=== PATIENT | male | born 1950 | race American Indian/Alaskan Native ===

== ENCOUNTER 2016-05-28 05:03 | Inpatient (IN) | payer MEDICARE ==
[2016-05-28 06:45] LABS: Basophils % (Auto) 0.4 % (0.0-1.8); Hemoglobin 14.8 gm/dl (11.8-15.2); Mean Corpuscular HGB Conc 34 % (32-34); Mean Corpuscular Hemoglobin 32 pg (28-32); Mean Corpuscular Volume 96 fl (84-94); Platelet Count 190 K/mm3 (140-440); Red Blood Count 4.61 M/mm3 (3.65-5.03); Red Cell Distribution Width 12.6 % (13.2-15.2); White Blood Count 8.3 K/mm3 (4.5-11.0)
--- NOTE | 2016-05-28 07:21 | Emergency Department Report ---
ED Chest Pain HPI - General Chief Complaint: Chest Pain Stated Complaint: ARM/NECK PAIN Time Seen by Provider: 05/28/16 07:15 Source: patient Mode of arrival: Ambulatory Limitations: No Limitations - History of Present Illness Initial Comments: The patient describes the acute onset of nontraumatic right neck pain associated with paresthesias but not numbness in his second through fourth digit fingertip only. He denies any weakness. He denies any bowel or bladder problem. He also states that he was experiencing some intermittent right anterior chest pain. Was not clear if this was really associated with the neck pain with paresthesias. Patient states that the neck pain was somewhat sharp and moderate in intensity. It was not radiating. He has done no recent travel nor unusual activity or lifting. He denies any history of prior neck problems. MD Complaint: chest pain -: Gradual Onset: during rest Pain Location: right chest Pain Radiation: none Severity: mild Severity scale (0 -10): 3 Quality: aching Consistency: intermittent Improves With: nothing Worsens With: nothing re: denies: nausea, vomting, diaphoresis, dyspnea, sense of impending doom Other Symptoms: denies: cough, fever, syncope - Related Data Home Medications Medication Instructions Recorded Confirmed Last Taken Aspirin BABY CHEW TAB 81 mg PO DAILY 05/28/16 05/28/16 Unknown Allergies Allergy/AdvReac Type Severity Reaction Status Date / Time No Known Allergies Allergy Unverified 05/28/16 06:02 AP score - Ap Score Age > 65: (0) No Aspirin use within the Past 7 Days: (1) Yes 3 or more CAD Risk Factors: (1) Yes 2 or more Angina events in past 24 hrs: (0) No Known CAD with more than 50% Stenosis: (0) No Elevated Cardiac Markers: (0) No ST Deviation Greater than 0.5mm: (0) No AP Score: 2 ED Review of Systems ROS: Stated complaint: ARM/NECK PAIN Other details as noted in HPI Constitutional: denies: chills, fever Eyes: denies: eye pain, eye discharge, vision change ENT: denies: ear pain, throat pain Respiratory: denies: cough, shortness of breath, wheezing Cardiovascular: as per HPI, chest pain. denies: palpitations, dyspnea on exertion, edema, syncope Endocrine: no symptoms reported Gastrointestinal: denies: abdominal pain, nausea, diarrhea Genitourinary: denies: urgency, dysuria Musculoskeletal: as per HPI, other. denies: back pain, joint swelling, arthralgia Skin: denies: rash, lesions Neurological: as per HPI, paresthesias. denies: headache, weakness Psychiatric: denies: anxiety, depression Hematological/Lymphatic: denies: easy bleeding, easy bruising ED Past Medical Hx - Past Medical History Hx Hypertension: Yes Hx Heart Attack/AMI: Yes Additional medical history: A-fib, DVT left leg, - Surgical History Additional Surgical History: Left abdominal hernia, right knee surgery - Social History Smoking Status: Current Every Day Smoker Substance Use Type: None - Medications Home Medications: Home Medications Medication Instructions Recorded Confirmed Last Taken Type Aspirin BABY CHEW TAB 81 mg PO DAILY 05/28/16 05/28/16 Unknown History ED Physical Exam - General Limitations: No Limitations General appearance: alert, in no apparent distress - Head Head exam: Present: atraumatic, normocephalic - Eye Eye exam: Present: normal appearance, PERRL, EOMI. Absent: scleral icterus - ENT ENT exam: Present: normal exam, mucous membranes moist - Neck Neck exam: Present: normal inspection, other (carotids without bruit. Perhaps some posterior right trapezius spasm). Absent: tenderness, meningismus - Respiratory Respiratory exam: Present: normal lung sounds bilaterally. Absent: respiratory distress - Cardiovascular Cardiovascular Exam: Present: regular rate, normal rhythm. Absent: systolic murmur, diastolic murmur, rubs, gallop - GI/Abdominal GI/Abdominal exam: Present: soft, normal bowel sounds. Absent: distended, tenderness, guarding, rebound, rigid, organomegaly, mass - Rectal Rectal exam: Present: deferred - Extremities Exam Extremities exam: Present: normal inspection, full ROM, normal capillary refill. Absent: tenderness, pedal edema, joint swelling, calf tenderness - Back Exam Back exam: Present: normal inspection. Absent: CVA tenderness (R), CVA tenderness (L) - Neurological Exam Neurological exam: Present: alert, oriented X3, CN II-XII intact, reflexes normal. Absent: motor sensory deficit - Psychiatric Psychiatric exam: Present: normal affect, normal mood - Skin Skin exam: Present: warm, dry, intact, normal color. Absent: rash ED Course Vital Signs 05/28/16 05/28/16 05/28/16 05:47 07:06 07:10 Temperature 98.4 F Pulse Rate 91 H Respiratory 18 Rate Blood Pressure 157/95 131/76 Blood Pressure 157/95 [Left] O2 Sat by Pulse 100 Oximetry 05/28/16 07:15 Temperature Pulse Rate Respiratory Rate Blood Pressure 142/77 Blood Pressure [Left] O2 Sat by Pulse Oximetry - Reevaluation(s) Reevaluation #1: Patient's chest pain essentially resolved in the emergency department. His paresthesias also resolved. He continued to have some soreness of his right posterior neck but it was mild in intensity. Radiologist did recommend MR with the finding of mild cervical stenosis. This was discussed with the hospitalist. Patient does not need an emergency MRI however as discussed with the hospitalist this can be obtained during his hospitalization. 05/28/16 12:16 ED Medical Decision Making - Lab Data Result diagrams: 05/28/16 06:20 05/28/16 06:20 Laboratory Results - last 24 hr 05/28/16 06:20 WBC 8.3 RBC 4.61 Hgb 14.8 Hct 44.0 MCV 96 H MCH 32 MCHC 34 RDW 12.6 L Plt Count 190 Lymph % (Auto) 36.7 H [place] % (Auto) 11.7 H Eos % (Auto) 2.0 Baso % (Auto) 0.4 Lymph # 3.1 [place] # 1.0 H Eos # 0.2 Baso # 0.0 Seg Neutrophils % 49.2 Seg Neutrophils # 4.1 - EKG Data -: EKG Interpreted by Me EKG shows normal: sinus rhythm Rate: normal - EKG Data Interpretation: no acute changes - Radiology Data Radiology results: report reviewed interpreted by me: Multilevel cervical arthritis with mild canal stenosis and neuroforaminal findings. See report. Chest x-ray no acute process. Chest x-ray showed no acute process Critical care attestation.: If time is entered above; I have spent that time in minutes in the direct care of this critically ill patient, excluding procedure time. ED Disposition Clinical Impression: Cervical radiculopathy, Cervical disc disease, Insulin dependent diabetes mellitus Cervical spondylosis Qualifiers: Spinal osteoarthritis complication: with radiculopathy Qualified Code(s): M47.22 - Other spondylosis with radiculopathy, cervical region Chest pain Qualifiers: Chest pain type: unspecified Qualified Code(s): R07.9 - Chest pain, unspecified Disposition: OP ADMITTED IP TO THIS HOSP Is pt being admited?: Yes Does the pt Need Aspirin: Yes Condition: Stable Instructions: Chest Pain (ED), Diabetes Mellitus Type 2 in Adults (ED) Referrals: MONSERRAT VAZQUEZ MD [Primary Care Provider] - 3-5 Days Time of Disposition: 12:20
[2016-05-28 07:41] LABS: Anion Gap 18 mmol/L; Blood Urea Nitrogen 16 mg/dL (9-20); Calcium 8.6 mg/dL (8.4-10.2); Carbon Dioxide 27 mmol/L (22-30); Chloride 98.4 mmol/L (98-107); Glucose 104 mg/dL (75-100); Potassium 3.9 mmol/L (3.6-5.0); Sodium 139 mmol/L (137-145)
[2016-05-28 07:54] LABS: Partial Thromboplastin Time 27.3 Sec. (24.2-36.6)
[2016-05-28 08:07] LABS: Alanine Aminotransferase 20 units/L (7-56); Albumin 3.9 g/dL (3.9-5); Alkaline Phosphatase 97 units/L (35-129); Bilirubin,Direct < 0.2 mg/dL (0-0.2); Bilirubin,Total 0.7 mg/dL (0.1-1.2); Total Protein 7.9 g/dL (6.3-8.2)
--- NOTE | 2016-05-28 08:41 | Cat Scan Report ---
FINAL REPORT PROCEDURE: CT CERVICAL SPINE WO CON TECHNIQUE: Computerized tomography of the cervical spine was performed without contrast material. HISTORY: R neck pain and R arm paresthesia COMPARISON: None FINDINGS: Incidentally partially included on the exam is right lobe thyroid goiter with mild mass effect and displacement of the trachea to the left. Small superior mediastinal extension of goiter is noted. There is no significant tracheal luminal narrowing. There is no lymphadenopathy. There is no CT evident vertebral body or posterior element fracture. There is no subluxation. Mild multilevel degenerative disc disease and subtle facet DJD is present. Intervertebral disc heights are largely maintained. Right and left posterior lateral osteophyte formation produces mild bilateral foraminal stenosis at C3/C4 superimposed partially calcified/ossified disc protrusions at C3/C4, C4/C5, and C5/C6 levels with mild central canal stenosis is suspected. IMPRESSION: No fracture or subluxation. Degenerative mild bilateral neural foraminal stenosis suspected at C3/C4 as well as disc protrusions with mild central canal stenosis at C3/C4, C4/C5, and C5/C6 levels. Consider MRI for further evaluation. Partially imaged right lobe thyroid goiter. If not known, thyroid ultrasound would be of benefit for further evaluation..
--- NOTE | 2016-05-28 09:25 | XRay Report ---
AP CHEST: HISTORY: chest pain AP view of the chest demonstrates a normal mediastinal and cardiac contour with clear lungs and normal bony and soft tissue structures. IMPRESSION: Unremarkable AP chest.
[2016-05-28] MEDS ORDERED: PERCOCET 5/325 PO PRN (12:14)
[2016-05-28] MEDS ORDERED: AMBIEN PO PRN (12:14)
[2016-05-28] MEDS ORDERED: ZOFRAN IV PRN (12:14)
[2016-05-28] MEDS ORDERED: DULCOLAX PR PRN (12:14)
[2016-05-28] MEDS ORDERED: TYLENOL PO PRN (12:14)
[2016-05-28] MEDS ORDERED: MILK OF MAGNESIA PO PRN (12:14)
--- NOTE | 2016-05-28 12:16 | History and Physical Report ---
History of Present Illness Date of examination: 05/28/16 Date of admission: 05/28/16 Chief complaint: neck pain, right arm pain, chest pain History of present illness: Patient is 66 yo presented with neck pain radiating down right arm and chest pain, mid sternal. neck pain for weeks but much worse past few days. Neck pain asociated with numbness fingers of right hand. Chest pain is 8/10, sharp, no radiation, worse on exertion. He was concerned therefore came to Emergency department. He has diabetes but is not on meds saying he is diet - controlled. He has paroxysmal atrial fibrillation and is not on anticoagulation. Initial Troponin was normal. he was given Aspirin and will admit to rule out acute coronary syndrome. Past History Past Medical History: atrial fib, diabetes, DVT (left leg), hypertension Past Surgical History: hernia repair Social history: , smoking (No smoke), other (Wine almost daily) Family history: other (Hyperlipidemia) Medications and Allergies Allergies Allergy/AdvReac Type Severity Reaction Status Date / Time No Known Allergies Allergy Verified 05/28/16 12:18 Home Medications Medication Instructions Recorded Confirmed Last Taken Type Aspirin BABY CHEW TAB 81 mg PO DAILY 05/28/16 05/28/16 Unknown History Famotidine [Pepcid] 20 mg PO BID #60 tablet 05/29/16 Unknown Rx Ibuprofen [Motrin 400 MG tab] 400 mg PO Q8H PRN #30 tablet 05/29/16 Unknown Rx amLODIPine [Norvasc] 5 mg PO QDAY #30 tablet 05/29/16 Unknown Rx Active Meds: Active Medications Acetaminophen (Tylenol) 650 mg PO Q4H PRN PRN Reason: Pain MILD(1-3)/Fever >100.5/SOLORZANO Bisacodyl (Dulcolax) 10 mg MA QDAY PRN PRN Reason: Constipation unrelieved by MOM Heparin Sodium (Porcine) (Heparin) 5,000 unit SUB-Q Q8HR YOUNG Magnesium Hydroxide (Milk Of Magnesia) 30 ml PO Q4H PRN PRN Reason: Constipation Ondansetron HCl (Zofran) 4 mg IV Q8H PRN PRN Reason: N/V unrelieved by Reglan Review of Systems All systems: negative (No fever, no cough, no abd pain. All other systems reviewed and are negative.) Exam - Physical Exam Narrative exam: en: Not in acute distress HEENT :Normocephalic atraumatic Neck : Supple no JVD Lungs clear to auscultation bilaterally, no crackles or wheeze Heart S1 and S2 regular, no murmurs, rubs or gallop Abdomen : soft non-tender, non-distended, normal bowel sounds Extremities: no edema clubbing or cyanosis, Neuro: awake, alert,oriented x 3 - Constitutional Vitals: Temp Pulse Resp BP Pulse Ox 98.4 F 91 H 18 142/77 100 05/28/16 05:47 05/28/16 05:47 05/28/16 07:10 05/28/16 07:15 05/28/16 05:47 Results - Labs CBC & Chem 7: 05/28/16 06:20 05/28/16 06:20 Labs: Abnormal lab results 05/28/16 05/28/16 Range/Units 06:20 06:20 MCV 96 H (84-94) fl RDW 12.6 L (13.2-15.2) % Lymph % (Auto) 36.7 H (13.4-35.0) % [place] % (Auto) 11.7 H (0.0-7.3) % [place] # 1.0 H (0.0-0.8) K/mm3 Glucose 104 H (75-100) mg/dL Assessment and Plan Chest pain. Aspirin, serial Troponins. Admit to Telemetry to rule out acute coronary syndrome.. Will do stress test tomorrow. Neck pain. CT neck shows degenerative changes. Will order MRI as recommended by Radiologist Paroxysmal afib. Currently on sinus rhythm. Not on anticoagulation. Consult cardiology to evaluate. Diabetes mellitus type 2. Will obtain hemoglobin A1c level. He is not on any medications says he is diet controlled. Full code status
[2016-05-28] MEDS ORDERED: ASPIRIN PO STA (12:18)
[2016-05-28] MEDS ORDERED: SODIUM CHLORIDE FLUSH SYRINGE 10 ML IV PRN (12:26)
[2016-05-28] MEDS ORDERED: NITROSTAT SL PRN (12:26)
[2016-05-28] MEDS ORDERED: BABY ASPIRIN PO SCH (13:00)
[2016-05-28] MEDS: PEPCID PO SCH ×2 (13:02→22:00)
[2016-05-28] MEDS: HEPARIN SUB-Q SCH ×2 (14:44→22:00)
--- NOTE | 2016-05-29 01:10 | Admit Criteria Form ---
Admission Criteria Documentation: DIABETES Clinical Indications for Admission to Inpatient Care (Place 'X' for any and all applicable criteria): Admission is indicated by presence of ALL (if I & II) or ANY ONE (if III or IV) of the following (1)(2)(3)(4): [ ]I. Diabetes is uncontrolled as indicated by ANY ONE of the following: [ ]a) Diabetic ketoacidosis as indicated by ALL of the following (8): [ ]i) Hyperglycemia (eg, plasma glucose greater than 200 mg/ dL (11.1 mmol/L)) [ ]ii) Acidosis (eg, arterial pH less than 7.30, serum bicarbonate level less than 15 mEq/L (mmol/L)) [ ]iii) Moderate ketonuria or ketonemia [ ]b) Hyperglycemic hyperosmolar state as indicated by ALL of the following(9)(10): [ ]i) Neurologic dysfunction (eg, stupor, coma, hemiparesis , seizure)(13) [ ]ii) Plasma glucose greater than 600 mg/dL (33.3 mmol/L) [ ]iii) Serum osmolality greater than 320 mOsm/kg (mmol/kg) [ ]c) Severe signs or symptoms secondary to hyperglycemia indicated by ANY ONE of the following: [ ]i) Altered mental status(10) [ ]ii) Significant hypovolemia or dehydration [ ]iii) Intractable nausea or vomiting [ ]iv) Unexplained fever or severe infection [ ]v) Severe electrolyte abnormality (eg, hypokalemia, hyperkalemia, hypernatremia) [ ]II. Management at other levels of care (Also use Diabetes: Observation Care as appropriate) is not feasible because of ANY ONE of the following: [ ]a) Condition was not adequately corrected with treatment at other levels of care. [ ]b) Treatment at other levels of care is not appropriate because of condition severity (eg, hyperosmolar coma). [ ]III. Contraindications and/or Inappropriate clinical situations for Observational Care in patients with Diabetes, when ANY ONE of the following is required: [ ]a) Patient require specific diagnostic workup or therapeutic intervention 22 [ ]b) Patient with abnormal vital signs or altered mental status 23 [X ]IV. General contraindications and/or Inappropriate clinical situations for Observational Care in patients with Diabetes, when ANY ONE of the following is required: [X ]a) Prediction of prolongation of LOS based on ANY ONE of the following may be considered as a contraindication for observational care 2, 3, 4, 5, 6, 7, 8, 9, 10, 11 [ ]i) Age > 65 yrs. [ ]ii) Patient arriving by ambulance [ ]iii) Patient with high acuity [ ]iv) Patient requiring vital sign monitoring [ X]v) Patient on IV medication [ ]b) Systolic blood pressures 180mmHg 3,12 [ ]c) Patient with altered mental status including delirium and other alteration of consciousness, (3) [ ]d) Patient whose discharge disposition will be to a group home home or rehabilitation home should not be managed in Emergency Department Observation Unit. CMS rule requires 3 days hospital stay before such placement.3,13 [ ]e) Patient with failure to thrive due to broad array of etiologies 3,16,17 [ ]f) Inability to ambulate 3,14 Extended stay beyond goal length of stay may be needed for(3)(20): [ ]a) Treatment of precipitating causes [ ]b) Development of hypoglycemia [ ]c) Complications of treatment [ ]d) Complications of decompensated diabetes (eg, acute gastric dilatation, persistent metabolic or neurologic derangement) [ ]e) Active Comorbidities [ ]f) Older patients( 65 years or older) The original [employer] content created by [employer] has been revised. The portions of the content which have been revised are identified through the use of italic text or in bold,and [facility] has neither reviewed nor approved the modified material. All other unmodified content is copyright [facility] [employer]. Please see references footnoted in the original [facility] edition 2016 Admission Criteria Met: Yes
[2016-05-29] MEDS: HEPARIN SUB-Q SCH ×2 (06:25→13:42)
[2016-05-29] MEDS ORDERED: LEXISCAN IV ONE ×2 (08:01→08:09)
--- NOTE | 2016-05-29 10:51 | Discharge Summary ---
Providers - Providers Date of Admission: 05/28/16 13:48 Date of discharge: 05/29/16 Attending physician: CARLOS REGALADO Primary care physician: MONSERRAT VAZQUEZ Hospitalization Condition: Fair Disposition: DISCHARGED TO HOME OR SELFCARE - Discharge Diagnoses (1) Diabetes mellitus type 2 in obese Status: Acute (2) Cervical radiculopathy Status: Acute (3) Chest pain Status: Acute Qualifiers: Chest pain type: unspecified Qualified Code(s): R07.9 - Chest pain, unspecified Core Measure Documentation - Palliative Care Palliative Care/ Comfort Measures: Not Applicable - Core Measures Any of the following diagnoses?: none Exam - Constitutional Vitals: Temp Pulse Resp BP Pulse Ox 97.8 F 88 20 159/86 97 05/29/16 06:00 05/29/16 08:25 05/29/16 06:00 05/29/16 08:25 05/29/16 06:00 Plan Activity: advance as tolerated Diet: low fat, low cholesterol, low salt Additional Instructions: 1.Follow up with PCP in 1 week. 2.Follow up with Orthopedic Surgeon for cervical radiculopathy in 1 week. 3.Follow up with Cardiology in 1 week as scheduled. 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 He declined Coumadin. Follow up with: MONSERRAT VAZQUEZ MD [Primary Care Provider] - 3-5 Days Prescriptions: amLODIPine [Norvasc] 5 mg PO QDAY #30 tablet Famotidine [Pepcid] 20 mg PO BID #60 tablet
[2016-05-29] MEDS: PEPCID PO SCH (11:09)
[2016-05-29 11:41] VITALS: BP 140/83
[2016-05-29] MEDS ORDERED: NORVASC PO SCH (12:00)
--- NOTE | 2016-05-29 12:35 | Magnetic Resonance Report ---
FINAL REPORT EXAM: MR CERVICAL SPINE WO CON HISTORY: neck pain, abnormal CT spine TECHNIQUE: Fat sensitive and fluid sensitive MR sequences of the cervical spine were performed in sagittal and axial planes. PRIORS: None. FINDINGS: Vertebral body heights and alignment are maintained. There is no bone bruise or fracture seen. At C2-3 there is minimal disc bulge. There is no spinal or neuroforaminal stenosis. At C3-4 there is a right posterolateral small disc protrusion/herniation superimposed on a diffuse mild disc bulge. Causing mild effacement of the right lateral recess and moderate right neuroforaminal narrowing. At C4-5, there is no significant disc protrusion or spinal stenosis. At C5-6 there is a diffuse disc bulge and superimposed central central right paramedian disc protrusion/herniation.. This causes mild spinal stenosis and mild effacement of the right lateral recess. At C6-7 there is a mild diffuse broad-based disc bulge without significant spinal stenosis. At C7-T1 there is no disc protrusion or spinal stenosis seen. IMPRESSION: Mild degenerative disc disease. Most notable is small central right paramedian disc herniation at C5-6 causing mild spinal stenosis and effacement of right lateral recess. Also notable is C3-4 right posterior lateral disc herniation causing some mild right lateral recess effacement and moderate neuroforaminal narrowing.
--- NOTE | 2016-05-29 23:03 | Consultation ---
HISTORY OF PRESENT ILLNESS: The patient is a 66-year-old male with a history of hypertension, type 2 diabetes, left leg DVT and lower remote history of smoking, who presented with symptoms that involved in neck, right arm, and right chest. There is a prior history of atrial fibrillation, so Cardiology consult was requested. He states that one time, he had to be cardioverted and he has occasional episodes of palpitations, he can tell when he is in atrial fibrillation. There are no significant associated symptoms. He one time used warfarin, but decided against using it after awhile. He has had no strokes, angina, significant dizziness, claudication or edema. He has some mild shortness of breath at time when active. He is moderately active. He has limited ability due to knee pain. At one point, he was told he would benefit from a knee replacement. He has had some mild hyperlipidemia. There is remote history of smoking and there is no history of lung disease. He is eating fairly healthy. PAST MEDICAL HISTORY: See the nurses' notes. ALLERGIES: None. MEDICATIONS: See the nurse's notes. SOCIAL HISTORY: Smoking none. Alcohol, heavy use. OPERATIONS: Left abdominal hernia, right knee. FAMILY HISTORY: Noncontributory. REVIEW OF SYSTEMS: No other complaints or medical problems described. PHYSICAL EXAMINATION: GENERAL: Well-developed, well-nourished, slightly overweight, in no acute distress. Alert, oriented and cooperative. Mental status, normal. I's and O's, and throat unremarkable. NECK: Reveals no JVD or bruits. Neck is supple, no masses. LUNGS: Clear. No labored respirations. HEART: Regular rhythm, soft S4, no murmurs or rubs. ABDOMEN: Soft, nontender. No masses. EXTREMITIES: No cyanosis, clubbing, edema. Peripheral pulses intact. NEUROLOGIC: Grossly symmetrical. SKIN: Clear. EKG shows sinus rhythm, LVH, nonspecific ST-T changes. ASSESSMENT: 1. History of paroxysmal atrial fibrillation: I discussed the importance of anticoagulation to avoid strokes. 2. Atypical right chest pain: Negative stress thallium study with an normal ejection fraction. 3. History of hypertension. 4. History of deep venous thrombosis. 5. History of type 2 diabetes. 6. Cervical radiculopathy. 7. Mild hyperlipidemia. PLAN: Encouraged anticoagulation and discussed diet and exercises. Hypertension and diabetes therapy per the primary care physician. Consider statin therapy long-term for all diabetics. Office followup is optional for this patient if he would like. Thank you for this consultation. JOB# [id number] DEANA/JAUN
--- NOTE | 2016-05-30 10:10 | Treadmill Report ---
INDICATION FOR PROCEDURE: Chest pain. FINDINGS: There is no scintigraphic evidence of myocardial ischemia. The left ventricle is normal in size and systolic function. The left ventricular ejection fraction is measured at 56%. Normal wall motion and wall thickening is noted on gated imaging. CONCLUSION: Normal perfusion scan. This is a low risk myocardial perfusion study associated with less than 1% cardiovascular mortality in the next 1 year. [facility]# [id number] JEMMA/JAUN
== END 2016-05-29 16:10 | disposition home or self-care (01) | DRG 552 ==
LOC: ED 05:03 → 4A 13:48
PROVIDERS: ADMIT Internal Medicine; ATTEND Internal Medicine
DX: M47.22 Other spondylosis with radiculopathy, cervical region (principal); R07.89 Other chest pain; I10 Essential (primary) hypertension; I25.2 Old myocardial infarction; E11.9 Type 2 diabetes mellitus without complications; E78.5 Hyperlipidemia, unspecified; I48.0 Paroxysmal atrial fibrillation; E66.9 Obesity, unspecified; Z68.36 Body mass index [BMI] 36.0-36.9, adult; Z87.891 Personal history of nicotine dependence; E78.4 Other hyperlipidemia; Z79.82 Long term (current) use of aspirin; Z86.718 Personal history of other venous thrombosis and embolism
CPT/HCPCS: 36415; 71010; 72125; 72141; 78452; 80048; 80074; 83880; 84484; 85025; 85610; 85730; 93005; 93010; 93017; 93306; A9502; J1644; J2785

== ENCOUNTER 2016-10-05 13:27 | Emergency (ER) | payer OTHER, MEDICARE ==
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
[2016-10-05 21:41] VITALS: BP 172/96
== END 2016-10-05 22:03 | disposition home or self-care (01) ==
LOC: ED 13:27
DX: M79.1 Myalgia (principal); I10 Essential (primary) hypertension; I25.2 Old myocardial infarction; E11.9 Type 2 diabetes mellitus without complications; F17.210 Nicotine dependence, cigarettes, uncomplicated; Z79.82 Long term (current) use of aspirin; V49.9XXA Car occupant (driver) (passenger) injured in unspecified traffic accident, initial encounter; Y93.89 Activity, other specified; Y92.89 Other specified places as the place of occurrence of the external cause; Y99.8 Other external cause status
CPT/HCPCS: 99282

== ENCOUNTER 2019-10-12 18:21 | Emergency (ER) | payer MEDICARE ==
[2019-10-12 18:52] VITALS: BP 124/70
[2019-10-12] MEDS ORDERED: ACETAMINOPHEN 325 MG TAB PO ONE (20:25)
--- NOTE | 2019-10-12 20:29 | Event Note ---
ED Screening Note Date of service: 10/12/19 Time: 20:24 ED Screening Note: Patient presents with complaints of cough, body aches, and loss of appetite x 5 days Cough is nonproductive He states he is a heart patient, but denies any chest pain Patient also denies any known sick contacts, loss of taste/smell, nausea/vomiting/diarrhea, or abdominal pain Temp is noted to be 101.7 This initial assessment/diagnostic orders/clinical plan/treatment(s) is/are subject to change based on patients health status, clinical progression and re- assessment by fellow clinical providers in the ED. Further treatment and workup at subsequent clinical providers discretion. Patient/guardian urged not to elope from the ED as their condition may be serious if not clinically assessed and managed. Initial orders include: Chest x-ray Labs Tylenol
[2019-10-12 20:59] LABS: Basophils % (Auto) 0.5 % (0.0-1.8); Eosinophils % (Auto) 0.6 % (0.0-4.3); Hematocrit 45.5 % (35.5-45.6); Hemoglobin 15.4 gm/dl (11.8-15.2); Lymphocytes # (Auto) 2.3 K/mm3 (1.2-5.4); Lymphocytes % (Auto) 37.3 % (13.4-35.0); Mean Corpuscular HGB Conc 34 % (32-34); Mean Corpuscular Volume 97 fl (84-94); Monocytes # (Auto) 0.6 K/mm3 (0.0-0.8); Monocytes % (Auto) 9.9 % (0.0-7.3); Platelet Count 187 K/mm3 (140-440); Red Blood Count 4.71 M/mm3 (3.65-5.03); Red Cell Distribution Width 12.5 % (13.2-15.2)
[2019-10-12 21:14] LABS: Alanine Aminotransferase 18 units/L (7-56); Albumin 3.9 g/dL (3.9-5); BUN/Creatinine Ratio 8; Blood Urea Nitrogen 8 mg/dL (9-20); Calcium 8.3 mg/dL (8.4-10.2); Hemolysis Index 29
--- NOTE | 2019-10-12 21:48 | XRay Report ---
CHEST 2 VIEWS INDICATION / CLINICAL INFORMATION: Cough and fever for 5 days. COMPARISON: One view of the chest from 05/28/2016. FINDINGS: SUPPORT DEVICES: None. HEART / MEDIASTINUM: No significant abnormality. LUNGS / PLEURA: Right upper and lower lobe airspace opacities are noted. The left lung is clear. No s ignificant pleural effusion. No pneumothorax. ADDITIONAL FINDINGS: No significant additional findings. IMPRESSION: Suspected right pneumonia. Continued radiographic follow-up to resolution is recommended. Signer Name: Sven Burden MD Signed: 10/12/2019 9:44 PM Workstation Name: [id number]
--- NOTE | 2019-10-12 23:16 | Emergency Department Report ---
- General Chief Complaint: Upper Respiratory Infection Stated Complaint: FEVER PUI?: Yes Time Seen by Provider: 10/12/19 20:17 Source: patient Mode of arrival: Ambulatory Limitations: No Limitations - History of Present Illness Initial Comments: 69-year-old -Indian male presents to the emergency room for cough and fever x5 days. Patient states that he has been taking Vicks DayQuil and ibuprofen but recently ran out of ibuprofen. Patient also admits to a headache. Patient does have a past medical history of diabetes currently on no meds for that. History of hypertension, A. fib DVT in left leg. Patient reports he is able to drink with a decrease in appetite. Patient reports that he is on Eliquis. Patient does have a primary care provider Dr. Valery Newman. Patient denies any Kovic positive contact. MD Complaint: fever, cough Onset/Timin -: days(s) - Related Data Home Medications Medication Instructions Recorded Confirmed Last Taken Aspirin BABY CHEW TAB 81 mg PO DAILY 05/28/16 05/28/16 Unknown Previous Rx's Medication Instructions Recorded Last Taken Type Famotidine [Pepcid] 20 mg PO BID #60 tablet 05/29/16 Unknown Rx amLODIPine 5 mg PO QDAY #30 tablet 05/29/16 Unknown Rx Cyclobenzaprine HCl [Flexeril 5 MG 5 mg PO QHS #20 tab 10/05/16 Unknown Rx TAB] Ibuprofen [Motrin 400 MG tab] 400 mg PO Q8H PRN #30 tablet 10/05/16 Unknown Rx Azithromycin [Zithromax TAB] 250 mg PO QDAY #6 tablet 10/12/19 Unknown Rx Dextromethorphan Polistirex 30 mg PO BID PRN #150 kayla.er.12h 10/12/19 Unknown Rx [12-Hour Cough Relief] Allergies Allergy/AdvReac Type Severity Reaction Status Date / Time No Known Allergies Allergy Verified 05/28/16 12:18 ED Review of Systems ROS: Stated complaint: FEVER Other details as noted in HPI ED Past Medical Hx - Past Medical History Previous Medical History?: Yes Hx Hypertension: Yes Hx Heart Attack/AMI: Yes Hx Diabetes: Yes Additional medical history: A-fib, DVT left leg, - Surgical History Past Surgical History?: Yes Additional Surgical History: Left abdominal hernia, right knee surgery - Social History Smoking Status: Former Smoker Substance Use Type: Alcohol - Medications Home Medications: Home Medications Medication Instructions Recorded Confirmed Last Taken Type Aspirin BABY CHEW TAB 81 mg PO DAILY 05/28/16 05/28/16 Unknown History Famotidine [Pepcid] 20 mg PO BID #60 tablet 05/29/16 Unknown Rx amLODIPine 5 mg PO QDAY #30 tablet 05/29/16 Unknown Rx Cyclobenzaprine HCl [Flexeril 5 MG 5 mg PO QHS #20 tab 10/05/16 Unknown Rx TAB] Ibuprofen [Motrin 400 MG tab] 400 mg PO Q8H PRN #30 tablet 10/05/16 Unknown Rx Azithromycin [Zithromax TAB] 250 mg PO QDAY #6 tablet 10/12/19 Unknown Rx Dextromethorphan Polistirex 30 mg PO BID PRN #150 kayla.er.12h 10/12/19 Unknown Rx [12-Hour Cough Relief] ED Physical Exam - General Limitations: No Limitations General appearance: alert, in no apparent distress - Head Head exam: Present: atraumatic, normocephalic - Eye Eye exam: Present: normal appearance - ENT ENT exam: Present: mucous membranes moist - Neck Neck exam: Present: full ROM - Respiratory Respiratory exam: Present: normal lung sounds bilaterally, other (Actively coughing) - Cardiovascular Cardiovascular Exam: Present: regular rate, normal rhythm. Absent: systolic murmur, diastolic murmur, rubs, gallop - GI/Abdominal GI/Abdominal exam: Present: soft, normal bowel sounds - Extremities Exam Extremities exam: Present: normal inspection, full ROM - Back Exam Back exam: Present: full ROM - Neurological Exam Neurological exam: Present: alert, oriented X3, normal gait - Psychiatric Psychiatric exam: Present: normal affect, normal mood - Skin Skin exam: Present: warm, dry, intact, normal color. Absent: rash ED Course Vital Signs 10/12/19 10/12/19 18:51 20:25 Temperature 98.5 F 101.7 F H Pulse Rate 91 H 91 H Respiratory 18 19 Rate Blood Pressure 124/70 [Right] O2 Sat by Pulse 98 Oximetry ED Medical Decision Making - Lab Data Result diagrams: 10/12/19 20:40 10/12/19 20:40 - Radiology Data Radiology results: report reviewed Patient Name: JOYCE GUEVARA Gender: Male Date of : 1950 Referring Provider: LUIS ANTONIO MORGAN Organization: [facility] Accession Number: [id number] Requested Date: October 12, 2019 20:19 Report Status: Final Requested Procedure: 1 Procedure Description: XR chest routine 2V Modality: XR Findings Reporting MD: Sven Burden Dictation Time: October 12, 2019 20:44 Computer Programmer Chief: Not available Lever Miller Date: CHEST 2 VIEWS INDICATION / CLINICAL INFORMATION: Cough and fever for 5 days. COMPARISON: One view of the chest from 05/28/2016. FINDINGS: SUPPORT DEVICES: None. HEART / MEDIASTINUM: No significant abnormality. LUNGS / PLEURA: Right upper and lower lobe airspace opacities are noted. The left lung is clear. No significant pleural effusion. No pneumothorax. ADDITIONAL FINDINGS: No significant additional findings. IMPRESSION: Suspected right pneumonia. Continued radiographic follow-up to resolution is recommended. Signer Name: Sven Burden MD Signed: 10/12/2019 8:44 PM Workstation Name: [id number] - Medical Decision Making 69-year-old -Indian male presents to the emergency room for cough and fever x5 days. Patient states that he has been taking Vicks DayQuil and ibuprofen but recently ran out of ibuprofen. Patient also admits to a headache. Patient does have a past medical history of diabetes currently on no meds for that. History of hypertension, A. fib DVT in left leg. Patient reports he is able to drink with a decrease in appetite. Patient reports that he is on Eliquis. Patient does have a primary care provider Dr. Valery Newman. Patient denies any Kovic positive contact. Chest x-ray shows right upper lobe pneumonia. Patient be given Robitussin-AC while here and discharged home on a Z-Livan and Robitussin. Patient is instructed to do self quarantine for the next 14 days he is also instructed to follow-up with his primary care provider this week as well as get COVID test handout given for [facility]. Patient is encouraged to increase his fluid intake advance his diet as tolerated. His CBC was within normal limits no elevation of WBCs. His chemistry was normal. Critical care attestation.: If time is entered above; I have spent that time in minutes in the direct care of this critically ill patient, excluding procedure time. ED Disposition Clinical Impression: Pneumonia Disposition: DC-01 TO HOME OR SELFCARE Is pt being admited?: No Does the pt Need Aspirin: No Condition: Stable Instructions: Bacterial Pneumonia (ED), Community-acquired Pneumonia (ED) Additional Instructions: Complete antibiotics as prescribed. Take cough medication as needed. It is very important for you to be on quarantine for the next 14 days. I strongly suggested she get COVID testing I have given you a handout to get tested free in [place]. It is also very important for you to follow-up with your primary care provider this week. Continue with Tylenol or ibuprofen as needed for fever. Very important for you to increase your fluid intake advance your diet as tolerated. Prescriptions: Dextromethorphan Polistirex [12-Hour Cough Relief] 30 mg PO BID PRN #150 kayla.er.12h PRN Reason: Cough Azithromycin [Zithromax TAB] 250 mg PO QDAY #6 tablet Referrals: PRIMARY CARE, [Primary Care Provider] - 3-5 Days Valery Thurman [Other] - 3-5 Days
[2019-10-12] MEDS ORDERED: guaiFENesin/CODEINE 100-10MG ORAL LIQD 5 ML PO ONE (23:57)
== END 2019-10-13 00:23 | disposition home or self-care (01) ==
LOC: ED 18:21
DX: J18.8 Other pneumonia, unspecified organism (principal); I10 Essential (primary) hypertension; E11.9 Type 2 diabetes mellitus without complications; I25.2 Old myocardial infarction; Z87.891 Personal history of nicotine dependence; Z79.899 Other long term (current) drug therapy; Z98.890 Other specified postprocedural states
CPT/HCPCS: 36415; 71046; 80053; 85025; 99283

== ENCOUNTER 2020-01-14 21:24 | Emergency (ER) | payer MEDICARE ==
[2020-01-14 22:58] VITALS: BP 128/76
[2020-01-14 23:43] LABS: Basophils % (Auto) 0.6 % (0.0-1.8); Eosinophils # (Auto) 0.1 K/mm3 (0.0-0.4); Eosinophils % (Auto) 1.5 % (0.0-4.3); Hematocrit 38.2 % (35.5-45.6); Hemoglobin 13.4 gm/dl (11.8-15.2); Lymphocytes # (Auto) 2.3 K/mm3 (1.2-5.4); Lymphocytes % (Auto) 32.7 % (13.4-35.0); Mean Corpuscular HGB Conc 35 % (32-34); Mean Corpuscular Volume 97 fl (84-94); Monocytes # (Auto) 0.7 K/mm3 (0.0-0.8); Monocytes % (Auto) 9.8 % (0.0-7.3); Platelet Count 222 K/mm3 (140-440); Red Blood Count 3.94 M/mm3 (3.65-5.03)
[2020-01-14 23:55] LABS: BUN/Creatinine Ratio 17; Blood Urea Nitrogen 17 mg/dL (9-20); Calcium 8.5 mg/dL (8.4-10.2); Hemolysis Index 14
[2020-01-15] MEDS ORDERED: ONDANSETRON 4 MG ODT TAB PO ONE (05:19)
[2020-01-15 06:03] LABS: INR 1.09 (0.87-1.13)
--- NOTE | 2020-01-15 06:03 | XRay Report ---
CHEST 1 VIEW INDICATION / CLINICAL INFORMATION: GI Bleeding. COMPARISON: 10/12/2019 FINDINGS: SUPPORT DEVICES: None. HEART / MEDIASTINUM: No significant abnormality. LUNGS / PLEURA: No significant pulmonary or pleural abnormality.. No pneumothorax. ADDITIONAL FINDINGS: No significant additional findings. IMPRESSION: 1. No acute findings. Signer Name: Wing Noland MD Signed: 01/15/2020 5:58 AM Workstation Name: [id number]
[2020-01-15 06:04] LABS: Partial Thromboplastin Time 27.9 Sec. (24.2-36.6)
--- NOTE | 2020-01-15 07:05 | Cat Scan Report ---
CT angio abdomen pelvis INDICATION: Patient complains of bleeding from his rectum. poss G.I. Bleed. TECHNIQUE: All CT scans at this location are performed using the following dose modulation technique: Automated exposure control. Helical slices were obtained through the abdomen and pelvis following the administr ation 100 cc of Omnipaque 350. Imaging is performed during the arterial phase. Coronal, sagittal, and axial medic reformatted images were obtained. Precontrast images are obtained through the abdomen an d pelvis. COMPARISON: None available. FINDINGS: Aorta: The abdominal aorta is normal in diameter. There is minimal atherosclerotic calcification. The superior mesenteric artery, celiac artery, renal arteries, inferior mesenteric artery and iliac yumiko memo are all widely patent without stenosis. There is high attenuation within a diverticulum in the s igmoid colon. This is present on precontrast images as well as postcontrast images and does not signi ficantly changed following contrast. There is a similar diverticulum in the hepatic flexure. This sean earance is consistent with some high density material possibly food or pill fragments within the dive rticula in relevant blood. No extravasation of contrast is seen. ABDOMEN: The liver, spleen, pancreas, adrenal glands, and kidneys show no acute abnormality. There is a 1.5 cm exophytic hypodensity arising from the medial aspect of the left kidney. This measures 15 H ounsfield units on precontrast images and 25 Hounsfield units on postcontrast images. There is symmetric excretion of contrast. No filling defects are seen within either renal collecting system. There is no adenopathy. Pelvis: There is no obstruction or inflammation. There are no abnormal fluid collections. On review of bone windows, no acute osseous abnormalities are seen. IMPRESSION: 1. No bleeding site is identified. No significant atherosclerotic disease is seen. There is a 1.5 cm hypodensity arising from the medial left kidney . It shows approximately 10 Hounsfi eld units enhancement following contrast. Renal ultrasound is recommended to further evaluate to dete rmine if this is a solid or cystic lesion. Signer Name: Wing Noland MD Signed: 01/15/2020 7:01 AM Workstation Name: [id number]
--- NOTE | 2020-01-15 07:29 | Emergency Department Report ---
ED Chest Pain HPI - General Chief Complaint: GI Bleed Stated Complaint: BLOOD IN STOOL Time Seen by Provider: 01/15/20 07:28 Source: patient Mode of arrival: Ambulatory Limitations: No Limitations - Related Data Home Medications Medication Instructions Recorded Confirmed Last Taken Aspirin BABY CHEW TAB 81 mg PO DAILY 05/28/16 05/28/16 Unknown Previous Rx's Medication Instructions Recorded Last Taken Type Famotidine [Pepcid] 20 mg PO BID #60 tablet 05/29/16 Unknown Rx amLODIPine 5 mg PO QDAY #30 tablet 05/29/16 Unknown Rx Cyclobenzaprine HCl [Flexeril 5 MG 5 mg PO QHS #20 tab 10/05/16 Unknown Rx TAB] Ibuprofen [Motrin 400 MG tab] 400 mg PO Q8H PRN #30 tablet 10/05/16 Unknown Rx Azithromycin [Zithromax TAB] 250 mg PO QDAY #6 tablet 10/12/19 Unknown Rx Dextromethorphan Polistirex 30 mg PO BID PRN #150 kayla.er.12h 10/12/19 Unknown Rx [12-Hour Cough Relief] Allergies Allergy/AdvReac Type Severity Reaction Status Date / Time No Known Allergies Allergy Verified 05/28/16 12:18 ED Review of Systems ROS: Stated complaint: BLOOD IN STOOL Other details as noted in HPI ED Past Medical Hx - Past Medical History Hx Hypertension: Yes Hx Heart Attack/AMI: Yes Hx Diabetes: Yes Additional medical history: A-fib, DVT left leg, - Surgical History Additional Surgical History: Left abdominal hernia, right knee surgery - Social History Smoking Status: Never Smoker Substance Use Type: Alcohol - Medications Home Medications: Home Medications Medication Instructions Recorded Confirmed Last Taken Type Aspirin BABY CHEW TAB 81 mg PO DAILY 05/28/16 05/28/16 Unknown History Famotidine [Pepcid] 20 mg PO BID #60 tablet 05/29/16 Unknown Rx amLODIPine 5 mg PO QDAY #30 tablet 05/29/16 Unknown Rx Cyclobenzaprine HCl [Flexeril 5 MG 5 mg PO QHS #20 tab 10/05/16 Unknown Rx TAB] Ibuprofen [Motrin 400 MG tab] 400 mg PO Q8H PRN #30 tablet 10/05/16 Unknown Rx Azithromycin [Zithromax TAB] 250 mg PO QDAY #6 tablet 10/12/19 Unknown Rx Dextromethorphan Polistirex 30 mg PO BID PRN #150 kayla.er.12h 10/12/19 Unknown Rx [12-Hour Cough Relief] ED Physical Exam - General Limitations: No Limitations ED Course Vital Signs 01/14/20 22:56 Temperature 97.6 F Pulse Rate 89 Respiratory 18 Rate Blood Pressure 128/76 O2 Sat by Pulse 96 Oximetry NIALL score - Niall Score Age > 65: (0) No Aspirin use within the Past 7 Days: (1) Yes 3 or more CAD Risk Factors: (1) Yes 2 or more Angina events in past 24 hrs: (0) No Known CAD with more than 50% Stenosis: (0) No Elevated Cardiac Markers: (0) No ST Deviation Greater than 0.5mm: (0) No NIALL Score: 2 ED Medical Decision Making - Lab Data Result diagrams: 01/14/20 23:15 01/14/20 23:15 Laboratory Results - last 24 hr 01/14/20 01/14/20 01/15/20 23:15 23:15 05:32 WBC 7.0 RBC 3.94 Hgb 13.4 Hct 38.2 MCV 97 H MCH 34 H MCHC 35 H RDW 13.0 L Plt Count 222 Lymph % (Auto) 32.7 [place] % (Auto) 9.8 H Eos % (Auto) 1.5 Baso % (Auto) 0.6 Lymph # (Auto) 2.3 [place]bot # (Auto) 0.7 Eos # (Auto) 0.1 Baso # (Auto) 0.0 Seg Neutrophils % 55.4 Seg Neutrophils # 3.9 PT 14.3 INR 1.09 APTT 27.9 Sodium 143 Potassium 4.1 Chloride 105.9 Carbon Dioxide 26 Anion Gap 15 BUN 17 Creatinine 1.0 Estimated GFR > 60 BUN/Creatinine Ratio 17 Glucose 104 H Calcium 8.5 Critical care attestation.: If time is entered above; I have spent that time in minutes in the direct care of this critically ill patient, excluding procedure time. ED Disposition Condition: Stable Referrals: PRIMARY CARE, [Primary Care Provider] - 3-5 Days Forms: Accompanied Note
--- NOTE | 2020-01-15 07:33 | Emergency Department Report ---
ED General Adult HPI - General Chief complaint: GI Bleed Stated complaint: BLOOD IN STOOL Time Seen by Provider: 01/15/20 07:28 Source: patient Mode of arrival: Ambulatory Limitations: No Limitations - History of Present Illness Initial comments: This is a 69-year-old gentleman who had 2 episodes of hematochezia 2 days ago and another yesterday. He has not had any recurrence for more than 24 hours. He states that this started with discomfort in his right upper quadrant of his abdomen. He had no fever or chills. He was not vomiting. He describes the stool as being dark red. He states he had a colonoscopy but 10 years ago. He no longer complains of abdominal pain nor nausea. He is essentially asymptomatic at this time. This appeared to warrant CT evaluation. When I told the patient that was indicated he did not make mention that he already had a prior CT. This was discovered and the CT was canceled. FINDINGS: Aorta: The abdominal aorta is normal in diameter. There is minimal atherosclerotic calcification. The superior mesenteric artery, celiac artery, renal arteries, inferior mesenteric artery and iliac arteries are all widely patent without stenosis. There is high attenuation within a diverticulum in the sigmoid colon. This is present on precontrast images as well as postcontrast images and does not significantly changed following contrast. There is a similar diverticulum in the hepatic flexure. This appearance is consistent with some high density material possibly food or pill fragments within the diverticula in relevant blood. No extravasation of contrast is seen. ABDOMEN: The liver, spleen, pancreas, adrenal glands, and kidneys show no acute abnormality. There is a 1.5 cm exophytic hypodensity arising from the medial aspect of the left kidney. This measures 15 Hounsfield units on precontrast images and 25 Hounsfield units on postcontrast images. There is symmetric excretion of contrast. No filling defects are seen within either renal collecting system. There is no adenopathy. Pelvis: There is no obstruction or inflammation. There are no abnormal fluid collections. On review of bone windows, no acute osseous abnormalities are seen. IMPRESSION: 1. No bleeding site is identified. No significant atherosclerotic disease is seen. There is a 1.5 cm hypodensity arising from the medial left kidney . It shows approximately 10 Hounsfield units enhancement following contrast. Renal ultrasound is recommended to further evaluate to determine if this is a solid or cystic lesion. Signer Name: Wing Noland MD Signed: 01/15/2020 7:01 AM Workstation Name: [id number] -: Gradual, days(s) Quality: aching (Fairly brief aching in the right upper quadrant of the abdomen which did not radiate) Consistency: now resolved Improves with: none Worsens with: none Associated Symptoms: denies other symptoms, other (Hematochezia) Treatments Prior to Arrival: none - Related Data Home Medications Medication Instructions Recorded Confirmed Last Taken Aspirin BABY CHEW TAB 81 mg PO DAILY 05/28/16 05/28/16 Unknown Previous Rx's Medication Instructions Recorded Last Taken Type Famotidine [Pepcid] 20 mg PO BID #60 tablet 05/29/16 Unknown Rx amLODIPine 5 mg PO QDAY #30 tablet 05/29/16 Unknown Rx Cyclobenzaprine HCl [Flexeril 5 MG 5 mg PO QHS #20 tab 10/05/16 Unknown Rx TAB] Ibuprofen [Motrin 400 MG tab] 400 mg PO Q8H PRN #30 tablet 10/05/16 Unknown Rx Azithromycin [Zithromax TAB] 250 mg PO QDAY #6 tablet 10/12/19 Unknown Rx Dextromethorphan Polistirex 30 mg PO BID PRN #150 kayla.er.12h 10/12/19 Unknown Rx [12-Hour Cough Relief] Allergies Allergy/AdvReac Type Severity Reaction Status Date / Time No Known Allergies Allergy Verified 05/28/16 12:18 ED Review of Systems ROS: Stated complaint: BLOOD IN STOOL Other details as noted in HPI Constitutional: denies: chills, fever Eyes: denies: eye pain, eye discharge, vision change ENT: denies: ear pain, throat pain Respiratory: denies: cough, shortness of breath, wheezing Cardiovascular: denies: chest pain, palpitations Endocrine: no symptoms reported Gastrointestinal: as per HPI, hematochezia. denies: abdominal pain, nausea, vomiting, diarrhea, hematemesis Genitourinary: denies: urgency, dysuria Musculoskeletal: denies: back pain, joint swelling, arthralgia Skin: denies: rash, lesions Neurological: denies: headache, weakness, paresthesias Psychiatric: denies: anxiety, depression Hematological/Lymphatic: denies: easy bleeding, easy bruising ED Past Medical Hx - Past Medical History Hx Hypertension: Yes Hx Heart Attack/AMI: Yes Hx Diabetes: Yes Additional medical history: A-fib, DVT left leg,. Not on anticoagulation - Surgical History Additional Surgical History: Left abdominal hernia, right knee surgery - Social History Smoking Status: Never Smoker Substance Use Type: Alcohol - Medications Home Medications: Home Medications Medication Instructions Recorded Confirmed Last Taken Type Aspirin BABY CHEW TAB 81 mg PO DAILY 05/28/16 05/28/16 Unknown History Famotidine [Pepcid] 20 mg PO BID #60 tablet 05/29/16 Unknown Rx amLODIPine 5 mg PO QDAY #30 tablet 05/29/16 Unknown Rx Cyclobenzaprine HCl [Flexeril 5 MG 5 mg PO QHS #20 tab 10/05/16 Unknown Rx TAB] Ibuprofen [Motrin 400 MG tab] 400 mg PO Q8H PRN #30 tablet 10/05/16 Unknown Rx Azithromycin [Zithromax TAB] 250 mg PO QDAY #6 tablet 10/12/19 Unknown Rx Dextromethorphan Polistirex 30 mg PO BID PRN #150 kayla.er.12h 10/12/19 Unknown Rx [12-Hour Cough Relief] ED Physical Exam - General Limitations: No Limitations General appearance: alert, in no apparent distress - Head Head exam: Present: atraumatic, normocephalic - Eye Eye exam: Present: normal appearance. Absent: scleral icterus - ENT ENT exam: Present: mucous membranes moist - Neck Neck exam: Present: normal inspection - Respiratory Respiratory exam: Present: normal lung sounds bilaterally. Absent: respiratory distress - Cardiovascular Cardiovascular Exam: Present: regular rate, normal rhythm. Absent: systolic murmur, diastolic murmur, rubs, gallop - GI/Abdominal GI/Abdominal exam: Present: soft, normal bowel sounds. Absent: distended, tenderness, guarding, rebound, rigid - Rectal Rectal exam: Present: deferred - Extremities Exam Extremities exam: Present: normal inspection. Absent: pedal edema, joint swelling, calf tenderness - Back Exam Back exam: Present: normal inspection - Neurological Exam Neurological exam: Present: alert, oriented X3, CN II-XII intact. Absent: motor sensory deficit - Psychiatric Psychiatric exam: Present: normal affect, normal mood - Skin Skin exam: Present: warm, dry, intact, normal color. Absent: rash ED Course Vital Signs 01/14/20 22:56 Temperature 97.6 F Pulse Rate 89 Respiratory 18 Rate Blood Pressure 128/76 O2 Sat by Pulse 96 Oximetry - Reevaluation(s) Reevaluation #1: Patient has remained stable in the emergency department. His hemoglobin was fine. His CTA showed no acute process. He has been advised to follow-up with GI. I believe colonoscopy will need to be repeated. He is given appropriate return criteria. 01/15/20 09:28 ED Medical Decision Making - Lab Data Result diagrams: 01/14/20 23:15 01/14/20 23:15 Laboratory Results - last 24 hr 01/14/20 01/14/20 01/15/20 23:15 23:15 05:32 WBC 7.0 RBC 3.94 Hgb 13.4 Hct 38.2 MCV 97 H MCH 34 H MCHC 35 H RDW 13.0 L Plt Count 222 Lymph % (Auto) 32.7 Hockley % (Auto) 9.8 H Eos % (Auto) 1.5 Baso % (Auto) 0.6 Lymph # (Auto) 2.3 Hockley # (Auto) 0.7 Eos # (Auto) 0.1 Baso # (Auto) 0.0 Seg Neutrophils % 55.4 Seg Neutrophils # 3.9 PT 14.3 INR 1.09 APTT 27.9 Sodium 143 Potassium 4.1 Chloride 105.9 Carbon Dioxide 26 Anion Gap 15 BUN 17 Creatinine 1.0 Estimated GFR > 60 BUN/Creatinine Ratio 17 Glucose 104 H Calcium 8.5 - EKG Data -: EKG Interpreted by Ma EKG shows normal: sinus rhythm, axis, intervals, QRS complexes, ST-T waves Rate: normal - EKG Data Interpretation: other - Radiology Data Radiology results: report reviewed, image reviewed FINDINGS: Aorta: The abdominal aorta is normal in diameter. There is minimal atheroscler otic calcification. The superior mesenteric artery, celiac artery, renal arteries, inferior mesent gabriele artery and iliac arteries are all widely patent without stenosis. There is high attenuation w ithin a diverticulum in the sigmoid colon. This is present on precontrast images as well as postco ntrast images and does not significantly changed following contrast. There is a similar diverticulum in the hepatic flexure. This appearance is consistent with some high density material possibly food or pill fragments within the diverticula in relevant blood. No extravasation of contrast is seen. ABDOMEN: The liver, spleen, pancreas, adrenal glands, and kidneys show no acute abnormality. There is a 1.5 cm exophytic hypodensity arising from the medial aspect of the left kidney. This measures 15 Hounsfield units on precontrast images and 25 Hounsfield units on postcontrast images. There is symmetric excretion of contrast. No filling defects are seen within either renal collecting system. There is no adenopathy. Pelvis: There is no obstruction or inflammation. There are no abnormal fluid collections. On review of bone windows, no acute osseous abnormalities are seen. IMPRESSION: 1. No bleeding site is identified. No significant atherosclerotic disease is seen. There is a 1.5 cm hypodensity arising from the medial left kidney . It shows approximately 10 Hounsfield units enhancement following contrast. Renal ultrasound is recommended to further evaluate to determine if this is a solid or cystic lesion. Signer Name: Wing Noland MD Signed: 01/15/2020 7:01 AM Workstation Name: [id number] Critical care attestation.: If time is entered above; I have spent that time in minutes in the direct care of this critically ill patient, excluding procedure time. ED Disposition Clinical Impression: Lower GI bleeding Disposition: DC-01 TO HOME OR SELFCARE Is pt being admited?: No Does the pt Need Aspirin: No Condition: Stable Instructions: Chest Pain (ED), Diabetes Mellitus Type 2 in Adults (ED), Hypertension (ED), Rectal Bleeding (ED) Additional Instructions: Return any recurrent bleeding as needed. Return fever chills weakness significant abdominal pain. Otherwise follow-up with your GI doctor KOFI. Referrals: PRIMARY CAREMD [Primary Care Provider] - 3-5 Days [facility] [Provider Group] - 2-3 Days Forms: Accompanied Note Time of Disposition: 09:30
== END 2020-01-15 09:36 | disposition home or self-care (01) ==
LOC: ED 21:24
DX: K92.1 Melena (principal); K92.2 Gastrointestinal hemorrhage, unspecified; I10 Essential (primary) hypertension; E11.9 Type 2 diabetes mellitus without complications; I25.2 Old myocardial infarction; Z98.890 Other specified postprocedural states; Z79.899 Other long term (current) drug therapy
CPT/HCPCS: 36415; 71045; 74174; 80048; 85025; 85610; 85730; 93005; 99284; Q9967; Q0162

== ENCOUNTER 2021-07-22 10:38 | Inpatient (IN) | payer MEDICARE, OTHER ==
[2021-07-22] MEDS ORDERED: SODIUM CHLORIDE 0.9% 1000 ML 1,000 ML IV ONE (12:01)
--- NOTE | 2021-07-22 13:05 | XRay Report ---
CHEST 2 VIEWS INDICATION: Dyspnea. COMPARISON: 01/15/2020 FINDINGS: Support devices: None. Heart: Within normal limits. Lungs/pleura: No acute air space or interstitial disease. No pleural abnormality or pneumothorax. Additional findings: None. IMPRESSION: No acute findings. Signer Name: Ian Lizarraga Jr, MD Signed: 07/22/2021 1:00 PM Workstation Name: [id number]
[2021-07-22 13:39] LABS: Alanine Aminotransferase 16 units/L (7-56); Albumin 4.4 g/dL (3.9-5); BUN/Creatinine Ratio 13; Blood Urea Nitrogen 14 mg/dL (9-20); Hemolysis Index 4
[2021-07-22 15:33] LABS: Chol/HDL Ratio 5.85 %
--- NOTE | 2021-07-22 16:24 | Cat Scan Report ---
CT HEAD WITHOUT CONTRAST INDICATION / CLINICAL INFORMATION: headache, near syncope dizziness. TECHNIQUE: All CT scans at this location are performed using CT dose reduction for ALARA by means of automated exposure control. COMPARISON: None available. FINDINGS: HEMORRHAGE: None. EXTRA-AXIAL SPACES: Normal in size and morphology for the patient's age. VENTRICULAR SYSTEM: Normal in size and morphology for the patient's age. CEREBRAL PARENCHYMA: Moderate white matter hypodensities likely representing microangiopathy. No acut e territorial infarct. MIDLINE SHIFT / HERNIATION: None. CEREBELLUM / BRAINSTEM: No significant abnormality. ORBITS: Normal as visualized. SOFT TISSUES: No significant abnormality. SKULL: No significant abnormality. PARANASAL SINUSES / MASTOID AIR CELLS: Normal as visualized. ADDITIONAL FINDINGS: None. IMPRESSION: 1. No acute intracranial abnormality. Signer Name: Shelby Cunha MD Signed: 07/22/2021 4:20 PM Workstation Name: [id number]
[2021-07-22] MEDS ORDERED: ASPIRIN 81 MG TAB CHEW PO ONE (16:31)
[2021-07-22] MEDS ORDERED: HYDROmorphone 1 MG/1 ML INJ IV PRN (16:44)
[2021-07-22] MEDS ORDERED: MORPHINE 2 MG/1 ML INJ IV PRN (16:44)
[2021-07-22] MEDS ORDERED: ALBUTEROL 2.5 MG/3 ML NEBU IH PRN (16:44)
[2021-07-22] MEDS ORDERED: ONDANSETRON 4 MG/2 ML INJ IV PRN (16:44)
[2021-07-22] MEDS ORDERED: NITROGLYCERIN 0.4 MG TAB SUBL SL PRN (16:45)
--- NOTE | 2021-07-22 16:47 | History and Physical Report ---
History of Present Illness Chief complaint: I feel weak and I may have passed out History of present illness: 71 YO Male with Obesity, DM, HTN, Metabolic Syndrome, Paroxysmal Atrial Fib, History of LLE DVT not currently taking therapeutic anticoagulation presents to ED for evaluation. Patient reports "I feel weak, and I think I passed out". Patient states that he has experienced generalized weakness over the past 1 week with persistent symptoms over the same timeframe. Patient acknowledges decreased exercise tolerance, dyspnea on exertion, dyspnea at rest, orthopnea, paroxysmal nocturnal dyspnea, and shortness of breath. Patient reports subjective weight gain over the past 1 week. Patient acknowledges a sudden onset of worsening weakness with subsequent dizziness and subsequent loss of consciousness. Patient transported to [facility] via private vehicle for further care and evaluation of the aforementioned symptoms. The patient was seen and evaluated in the emergency department. All lab and imaging studies reviewed. Patient found to have NSTEMI, as well as clinical symptoms consistent with diastolic congestive heart failure. Patient admitted to telemetry and initiated on ACS protocol as well as CHF protocol. Cardiology team consulted in ED. Patient denies fever, chills, chest pain, palpitations, productive cough, skin rash, recent contact, known exposure to COVID-19. Prior admission on 05/28/2016 reviewed. All medication listed at time of admission has been reconciled. Advanced care planning conducted in ED. Past History Past Medical History: atrial fib, diabetes, hypertension, other (See HPI) Past Surgical History: hernia repair Social history: , lives with family. denies: smoking, alcohol abuse, prescription drug abuse Family history: diabetes, hypertension Medications and Allergies Allergies Allergy/AdvReac Type Severity Reaction Status Date / Time No Known Allergies Allergy Verified 07/22/21 14:11 Home Medications Medication Instructions Recorded Confirmed Last Taken Type Aspirin BABY CHEW TAB 81 mg PO DAILY 05/28/16 05/28/16 Unknown History Famotidine [Pepcid] 20 mg PO BID #60 tablet 05/29/16 Unknown Rx amLODIPine 5 mg PO QDAY #30 tablet 05/29/16 Unknown Rx Cyclobenzaprine HCl [Flexeril 5 MG 5 mg PO QHS #20 tab 10/05/16 Unknown Rx TAB] Ibuprofen [Motrin 400 MG tab] 400 mg PO Q8H PRN #30 tablet 10/05/16 Unknown Rx Azithromycin [Zithromax TAB] 250 mg PO QDAY #6 tablet 10/12/19 Unknown Rx Dextromethorphan Polistirex 30 mg PO BID PRN #150 kayla.er.12h 10/12/19 Unknown Rx [12-Hour Cough Relief] Active Meds: Active Medications Acetaminophen (Acetaminophen 325 Mg Tab) 650 mg PO Q4H PRN PRN Reason: Pain MILD(1-3)/Fever >100.5/SOLORZANO Albuterol (Albuterol 2.5 Mg/3 Ml Nebu) 2.5 mg IH Q4HRT PRN PRN Reason: Shortness Of Breath Hydromorphone HCl (Hydromorphone 1 Mg/1 Ml Inj) 0.5 mg IV Q12H PRN PRN Reason: Pain , Severe (7-10) Morphine Sulfate (Morphine 2 Mg/1 Ml Inj) 2 mg IV Q6H PRN PRN Reason: Pain, Moderate (4-6) Ondansetron HCl (Ondansetron 4 Mg/2 Ml Inj) 4 mg IV Q8H PRN PRN Reason: Nausea And Vomiting Sodium Chloride (Sodium Chloride 0.9% 10 Ml Flush Syringe) 10 ml IV BID YOUNG Sodium Chloride (Sodium Chloride 0.9% 10 Ml Flush Syringe) 10 ml IV PRN PRN PRN Reason: LINE FLUSH Review of Systems Constitutional: weight gain, fatigue, weakness, no fever, no chills, no sweats Exam - Constitutional Vitals: Temp Pulse Resp BP Pulse Ox 98.9 F 94 H 20 140/79 91 07/22/21 12:16 07/22/21 11:08 07/22/21 10:47 07/22/21 11:08 07/22/21 10:47 General appearance: Present: mild distress - EENT Eyes: Present: PERRL ENT: hearing intact, clear oral mucosa - Neck Neck: Present: supple, normal ROM - Respiratory Respiratory effort: normal Respiratory: bilateral: rales - Cardiovascular Rhythm: irregularly irregular Heart Sounds: Present: S1 & S2. Absent: rub, click - Extremities Extremities: pulses symmetrical Extremity abnormal: edema Peripheral Pulses: within normal limits - Abdominal General gastrointestinal: Present: soft, non-tender, non-distended, normal bowel sounds Male genitourinary: Present: normal - Integumentary Integumentary: Present: clear, warm, dry - Musculoskeletal Musculoskeletal: gait normal, strength equal bilaterally - Psychiatric Psychiatric: appropriate mood/affect, intact judgment & insight - Neurologic Neurologic: CNII-XII intact, moves all extremities HEART Score - HEART Score Troponin: Troponin T 0.051 ng/mL (0.00-0.029) H 07/22/21 12:53 Results - Labs CBC & Chem 7: 07/22/21 17:01 07/22/21 12:53 Labs: Abnormal lab results 07/22/21 07/22/21 Range/Units 12:53 12:53 Glucose 117 H (75-100) mg/dL Troponin T 0.051 H (0.00-0.029) ng/mL Triglycerides 161 H (2-149) mg/dL Cholesterol 234 H (50-199) mg/dL LDL Cholesterol Direct 174 H (50-130) mg/dL Assessment and Plan - Patient Problems (1) NSTEMI (non-ST elevated myocardial infarction) Current Visit: Yes Status: Acute Plan to address problem: ACS protocol: Cardiology team consulted in ED, serial cardiac enzymes, EKG, supplemental oxygen, pulse oximetry, therapeutic anticoagulation. (2) Diastolic CHF Current Visit: Yes Status: Acute Qualifiers: Heart failure chronicity: acute Qualified Code(s): I50.31 - Acute diastolic (congestive) heart failure Plan to address problem: Strict I/O, monitor urine output every shift, daily weight, afterload reduction, diuresis, blood pressure control. Echocardiogram ordered and pending at time of admission. (3) Metabolic syndrome Current Visit: Yes Status: Acute Plan to address problem: Risk factor reduction, balanced diet, increase physical activity at discharge, (4) PAF (paroxysmal atrial fibrillation) Current Visit: No Status: Chronic Plan to address problem: Continue therapeutic anticoagulation, rate control, supportive care, echocardiogram ordered and pending at time of admission. (5) Diabetes Current Visit: Yes Status: Acute Plan to address problem: Insulin protocol, hypoglycemia protocol, Accu-Chek, consistent carbohydrate diet. (6) Hypertension Current Visit: Yes Status: Acute Qualifiers: Hypertension type: primary hypertension Qualified Code(s): I10 - Essential (primary) hypertension Plan to address problem: Monitor blood pressure every shift, continue medical management. (7) Vascular dementia Current Visit: Yes Status: Acute Qualifiers: Dementia behavioral disturbance: without behavioral disturbance Qualified Code(s): F01.50 - Vascular dementia without behavioral disturbance Plan to address problem: Verbal prompting, verbal redirection, benzodiazepine therapy as clinically indicated. (8) Cerebral atherosclerosis Current Visit: Yes Status: Acute Plan to address problem: Antiplatelet therapy as clinically indicated, supportive care. Risk factor reduction. (9) DVT prophylaxis Current Visit: Yes Status: Acute Plan to address problem: SCD to bilateral lower extremities while in bed continue therapeutic anticoagulation (10) Advance care planning Current Visit: Yes Status: Acute Plan to address problem: Disease education conducted, care plan discussed, diagnoses discussed, prognosis discussed, patient is full code. Patient knowledges understanding and agreement with care plan, +30 minutes.
[2021-07-22 17:16] LABS: Basophils % (Auto) 0.6 % (0.0-1.8); Eosinophils # (Auto) 0.1 K/mm3 (0.0-0.4); Eosinophils % (Auto) 0.9 % (0.0-4.3); Hematocrit 42.6 % (35.5-45.6); Hemoglobin 14.6 gm/dl (11.8-15.2); Lymphocytes # (Auto) 2.1 K/mm3 (1.2-5.4); Lymphocytes % (Auto) 26.6 % (13.4-35.0); Mean Corpuscular HGB Conc 34 % (32-34); Mean Corpuscular Volume 97 fl (84-94); Monocytes # (Auto) 0.6 K/mm3 (0.0-0.8); Monocytes % (Auto) 8.1 % (0.0-7.3); Platelet Count 161 K/mm3 (140-440); Red Cell Distribution Width 12.8 % (13.2-15.2)
[2021-07-22] MEDS ORDERED: IBUPROFEN 400 MG TAB PO PRN (21:22)
[2021-07-22] MEDS ORDERED: ACETAMINOPHEN 325 MG TAB PO PRN (21:25)
[2021-07-22] MEDS ORDERED: ENOXAPARIN 100 MG/1 ML INJ SUB-Q SCH (21:25)
[2021-07-22] MEDS ORDERED: traMADol 50 MG TAB PO PRN (21:25)
[2021-07-22] MEDS ORDERED: DEXTROSE 50% IN WATER (25GM) 50 ML SYRINGE IV PRN (21:32)
[2021-07-22] MEDS: CYCLOBENZAPRINE 10 MG TAB PO SCH (22:18)
[2021-07-22] MEDS: FAMOTIDINE 20 MG TAB PO SCH (22:19)
[2021-07-23] MEDS ORDERED: cefTRIAXone/NS 1 GM/50 ML 1 GM/50 ML BAG IV SCH (02:00)
[2021-07-23] MEDS ORDERED: FUROSEMIDE 20 MG/2 ML INJ IV SCH (06:00)
[2021-07-23] MEDS: INSULIN LISPRO 100 UNIT/ML SUB-Q SCH ×4 (06:35→18:15)
[2021-07-23] MEDS: ASPIRIN 81 MG TAB CHEW PO SCH (10:32)
[2021-07-23] MEDS: FAMOTIDINE 20 MG TAB PO SCH ×2 (10:32→22:11)
[2021-07-23] MEDS: amLODIPine 5 MG TAB PO SCH (10:32)
[2021-07-23] MEDS: ENOXAPARIN 100 MG/1 ML INJ SUB-Q SCH ×2 (10:32→22:06)
[2021-07-23] MEDS: AZITHROMYCIN 250 MG TAB PO SCH (10:32)
--- NOTE | 2021-07-23 14:05 | Progress Note ---
Assessment and Plan Assessment and plan: #Near syncope -CT head negative for acute process -patient reports feeling lightheadedness and dizziness while ambulating prior to coming to ED -questionable diplopia -will consult Neurology for further assistance #NSTEMI (non-ST elevated myocardial infarction) -Troponin peak 0.121 -Echocardiogram: LVEF 55 to 60%, mild to moderate tricuspid regurg and moderate pulmonary hypertension. -Cardiology following, plan for stress test Monday #Diastolic CHF -not in acute exacerbation -strict I/O, monitor urine output every shift, daily weight #Metabolic syndrome Risk factor reduction, balanced diet, increase physical activity at discharge, #PAF (paroxysmal atrial fibrillation) -not on AC at home -continue theraputic lovenox and metoprolol while inpatient -discussed increased risk of stroke to patient, opted to not resume AC at discharge -telemetry #Diabetes Insulin protocol, hypoglycemia protocol, Accu-Chek, consistent carbohydrate diet. #Hypertension Monitor blood pressure every shift, continue medical management. #Vascular dementia #Cerebral atherosclerosis Antiplatelet therapy as clinically indicated, supportive care. Risk factor reduction. #Advanced care planning -Disease education, care plan, diagnosis, prognosis discussed with next of kin. Family understands and acknowledges current plan. -Time: +30 minutes History Interval history: No acute events overnight. Patient reports having fever and cough x1 week. He does have atrial fibrillation and opted to not take anticoagulation due to side effects. Has no complaints at this time. Hospitalist Physical - Physical exam Narrative exam: GENERAL: Well-developed well-nourished. In no acute distress. HEENT: 3 L nasal cannula. NECK: Supple. CHEST/LUNGS: Coarse breath sounds bilaterally. HEART/CARDIOVASCULAR: Irregular irregular rhythm. No murmur, rubs or gallops appreciated. ABDOMEN: +BS. NT/ND. SKIN: No rashes noted. NEURO: No focal motor deficit. Follows all commands. MUSCULOSKELETAL: No joint effusion EXTREMITIES: No cyanosis, clubbing or edema. PSYCH: Cooperative. - Constitutional Vitals: Temp Pulse Resp BP Pulse Ox 98.5 F 104 H 20 125/69 98 07/23/21 07:28 07/23/21 10:00 07/23/21 05:35 07/23/21 07:28 07/23/21 07:28 General appearance: Present: mild distress HEART Score - HEART Score Troponin: Troponin T 0.105 ng/mL (0.00-0.029) H* 07/23/21 05:36 Results - Labs CBC & Chem 7: 07/22/21 17:01 07/22/21 12:53 Labs: Laboratory Last Values WBC 7.8 K/mm3 (4.5-11.0) 07/22/21 17:01 RBC 4.40 M/mm3 (3.65-5.03) 07/22/21 17:01 Hgb 14.6 gm/dl (11.8-15.2) 07/22/21 17:01 Hct 42.6 % (35.5-45.6) 07/22/21 17:01 MCV 97 fl (84-94) H 07/22/21 17:01 MCH 33 pg (28-32) H 07/22/21 17:01 MCHC 34 % (32-34) 07/22/21 17:01 RDW 12.8 % (13.2-15.2) L 07/22/21 17:01 Plt Count 161 K/mm3 (140-440) 07/22/21 17:01 Lymph % (Auto) 26.6 % (13.4-35.0) 07/22/21 17:01 [place] % (Auto) 8.1 % (0.0-7.3) H 07/22/21 17:01 Eos % (Auto) 0.9 % (0.0-4.3) 07/22/21 17:01 Baso % (Auto) 0.6 % (0.0-1.8) 07/22/21 17:01 Lymph # (Auto) 2.1 K/mm3 (1.2-5.4) 07/22/21 17:01 [place] # (Auto) 0.6 K/mm3 (0.0-0.8) 07/22/21 17:01 Eos # (Auto) 0.1 K/mm3 (0.0-0.4) 07/22/21 17:01 Baso # (Auto) 0.0 K/mm3 (0.0-0.1) 07/22/21 17:01 Seg Neutrophils % 63.8 % (40.0-70.0) 07/22/21 17:01 Seg Neutrophils # 5.0 K/mm3 (1.8-7.7) 07/22/21 17:01 Sodium 139 mmol/L (137-145) 07/22/21 12:53 Potassium 4.6 mmol/L (3.6-5.0) 07/22/21 12:53 Chloride 102.2 mmol/L (98-107) 07/22/21 12:53 Carbon Dioxide 26 mmol/L (22-30) 07/22/21 12:53 Anion Gap 15 mmol/L 07/22/21 12:53 BUN 14 mg/dL (9-20) 07/22/21 12:53 Creatinine 1.1 mg/dL (0.8-1.3) 07/22/21 12:53 Estimated GFR > 60 ml/min 07/22/21 12:53 BUN/Creatinine Ratio 13 % 07/22/21 12:53 Glucose 117 mg/dL (75-100) H 07/22/21 12:53 POC Glucose 112 mg/dL (70-105) H 07/23/21 06:30 Lactic Acid 1.60 mmol/L (0.7-2.0) 07/22/21 12:53 Calcium 9.0 mg/dL (8.4-10.2) 07/22/21 12:53 Total Bilirubin 1.00 mg/dL (0.1-1.2) 07/22/21 12:53 AST 24 units/L (5-40) 07/22/21 12:53 ALT 16 units/L (7-56) 07/22/21 12:53 Alkaline Phosphatase 81 units/L (35-129) 07/22/21 12:53 Troponin T 0.105 ng/mL (0.00-0.029) H* 07/23/21 05:36 NT-Pro-B Natriuret Pep 812.1 pg/mL (0-900) 07/23/21 00:16 Total Protein 7.9 g/dL (6.3-8.2) 07/22/21 12:53 Albumin 4.4 g/dL (3.9-5) 07/22/21 12:53 Albumin/Globulin Ratio 1.3 % 07/22/21 12:53 Triglycerides 161 mg/dL (2-149) H 07/22/21 12:53 Cholesterol 234 mg/dL (50-199) H 07/22/21 12:53 LDL Cholesterol Direct 174 mg/dL (50-130) H 07/22/21 12:53 HDL Cholesterol 40 mg/dL (40-59) 07/22/21 12:53 Cholesterol/HDL Ratio 5.85 % 07/22/21 12:53 Microbiology: Microbiology 07/22/21 12:53 Peripheral/Venous Blood Culture - Preliminary NO GROWTH AFTER 24 HOURS 07/22/21 12:53 Peripheral/Venous Blood Culture - Preliminary NO GROWTH AFTER 24 HOURS Anne/IV: Voiding Method Urinal Active Medications - Current Medications Current Medications: Generic Name Dose Route Start Last Admin Trade Name Freq PRN Reason Stop Dose Admin Acetaminophen 650 mg 07/22/21 16:44 Acetaminophen 325 Mg Tab PO Q4H PRN Pain MILD(1-3)/Fever >100.5/SOLORZANO Albuterol 2.5 mg 07/22/21 16:44 Albuterol 2.5 Mg/3 Ml Nebu IH Q4HRT PRN Shortness Of Breath Amlodipine Besylate 5 mg 07/23/21 10:00 07/23/21 10:32 Amlodipine 5 Mg Tab PO 5 mg QDAY YOUNG Administration Aspirin 81 mg 07/23/21 10:00 07/23/21 10:32 Aspirin 81 Mg Tab Chew PO 81 mg DAILY YOUNG Administration Atorvastatin Calcium 40 mg 07/22/21 22:00 07/22/21 22:19 Atorvastatin 40 Mg Tab PO 40 mg QHS YOUNG Administration Azithromycin 500 mg 07/23/21 10:00 07/23/21 10:32 Azithromycin 250 Mg Tab PO 500 mg QDAY YOUNG Administration Protocol Cyclobenzaprine HCl 5 mg 07/22/21 22:00 07/22/21 22:18 Cyclobenzaprine 10 Mg Tab PO 5 mg QHS YOUNG Administration Dextrose 50 ml 07/22/21 21:32 Dextrose 50% In Water (25gm) 50 Ml Syringe IV Q30MIN PRN Hypoglycemia Protocol Enoxaparin Sodium 100 mg 07/23/21 10:00 07/23/21 10:32 Enoxaparin 100 Mg/1 Ml Inj SUB-Q 100 mg Q12H YOUNG Administration Protocol Famotidine 20 mg 07/22/21 22:00 07/23/21 10:32 Famotidine 20 Mg Tab PO 20 mg BID YOUNG Administration Furosemide 20 mg 07/23/21 06:00 07/23/21 06:38 Furosemide 20 Mg/2 Ml Inj IV 20 mg BID@0600,1800 [facility] Administration Guaifenesin 200 mg 07/23/21 01:14 Guaifenesin 100 Mg/5 Ml Oral Liqd PO Q4H PRN Cough Hydromorphone HCl 0.5 mg 07/22/21 16:44 07/22/21 20:56 Hydromorphone 1 Mg/1 Ml Inj IV 0.5 mg Q12H PRN Administration Pain , Severe (7-10) Ceftriaxone Sodium 2 gm in 100 mls @ 200 mls/hr 07/23/21 22:00 Rocephin/Ns 2 Gm/100 Ml IV Q24H [facility] Protocol Ibuprofen 400 mg 07/22/21 21:22 Ibuprofen 400 Mg Tab PO Q8H PRN neck pain Insulin Human Lispro 0 unit 07/23/21 00:00 07/23/21 13:12 Insulin Lispro 100 Unit/Ml SUB-Q Not Given Q6HR [facility] Protocol Metoprolol Tartrate 25 mg 07/23/21 14:00 Metoprolol Tartrate 25 Mg Tab PO BID [facility] Morphine Sulfate 2 mg 07/22/21 16:44 Morphine 2 Mg/1 Ml Inj IV Q6H PRN Pain, Moderate (4-6) Nitroglycerin 0.4 mg 07/22/21 16:45 Nitroglycerin 0.4 Mg Tab Subl SL .Q5MIN PRN Chest Pain Ondansetron HCl 4 mg 07/22/21 16:44 Ondansetron 4 Mg/2 Ml Inj IV Q8H PRN Nausea And Vomiting Sodium Chloride 10 ml 07/22/21 22:00 07/23/21 10:33 Sodium Chloride 0.9% 10 Ml Flush Syringe IV 10 ml BID [facility] Administration Sodium Chloride 10 ml 07/22/21 16:44 Sodium Chloride 0.9% 10 Ml Flush Syringe IV PRN PRN LINE FLUSH Tramadol HCl 50 mg 07/22/21 21:25 Tramadol 50 Mg Tab PO Q6H PRN Pain, Moderate (4-6)
--- NOTE | 2021-07-23 15:04 | Consultation ---
History of Present Illness Consult date: 07/23/21 Requesting physician: CHAVA BERKOWITZ Consult reason: congestive heart failure, elevated troponin History of present illness: Patient is a 71-year-old male who reports a past medical history of paroxysmal A. fib and history of DVT who presented to the ED with complaint of sudden onset of weakness which occurred yesterday morning. Patient states he got up yesterday morning feeling well and was beginning to go about his business when suddenly he felt all the strength in his body. Patient reports that at the same time he developed double vision. Patient reports contacted EMS for further evaluation and states by the time EMS got there he suddenly felt better. He reports that after EMS left he tried to walk around the house and felt his strength leave him again and decided to be driven to the hospital for further evaluation. In the ED patient was noted to have elevated troponin and be in hypertensive urgency. Patient denies any complaint of chest pain, nausea, vomiting, diaphoresis, shortness of breath, dyspnea on exertion. Patient is previously unknown to our practice. Cardiology is consulted for CHF/NSTEMI. Past History Past Medical History: atrial fib, diabetes, hypertension, other (See HPI) Past Surgical History: hernia repair Social history: , lives with family. denies: smoking, alcohol abuse, prescription drug abuse Family history: diabetes, hypertension Medications and Allergies Allergies Allergy/AdvReac Type Severity Reaction Status Date / Time No Known Allergies Allergy Verified 07/22/21 14:11 Home Medications Medication Instructions Recorded Confirmed Last Taken Type Aspirin BABY CHEW TAB 81 mg PO DAILY 05/28/16 07/22/21 1 Day Ago History ~07/21/21 Famotidine [Pepcid] 20 mg PO BID #60 tablet 05/29/16 07/22/21 1 Day Ago Rx ~07/21/21 amLODIPine 5 mg PO QDAY #30 tablet 05/29/16 07/22/21 1 Day Ago Rx ~07/21/21 Cyclobenzaprine HCl [Flexeril 5 MG 5 mg PO QHS #20 tab 10/05/16 07/22/21 Unknown Rx TAB] Ibuprofen [Motrin 400 MG tab] 400 mg PO Q8H PRN #30 tablet 10/05/16 07/22/21 Unknown Rx Dextromethorphan Polistirex 30 mg PO BID PRN #150 [id number].[email or web address] 10/12/19 07/22/21 Unknown Rx [12-Hour Cough Relief] Active Meds: Active Medications Acetaminophen (Acetaminophen 325 Mg Tab) 650 mg PO Q4H PRN PRN Reason: Pain MILD(1-3)/Fever >100.5/SOLORZANO Albuterol (Albuterol 2.5 Mg/3 Ml Nebu) 2.5 mg IH Q4HRT PRN PRN Reason: Shortness Of Breath Amlodipine Besylate (Amlodipine 5 Mg Tab) 5 mg PO QDAY [facility] Last Admin: 07/23/21 10:32 Dose: 5 mg Aspirin (Aspirin 81 Mg Tab Chew) 81 mg PO DAILY [facility] Last Admin: 07/23/21 10:32 Dose: 81 mg Atorvastatin Calcium (Atorvastatin 40 Mg Tab) 40 mg PO QHS [facility] Last Admin: 07/22/21 22:19 Dose: 40 mg Azithromycin (Azithromycin 250 Mg Tab) 500 mg PO QDAY [facility]; Protocol Last Admin: 07/23/21 10:32 Dose: 500 mg Cyclobenzaprine HCl (Cyclobenzaprine 10 Mg Tab) 5 mg PO QHS [facility] Last Admin: 07/22/21 22:18 Dose: 5 mg Dextrose (Dextrose 50% In Water (25gm) 50 Ml Syringe) 50 ml IV Q30MIN PRN; Protocol PRN Reason: Hypoglycemia Enoxaparin Sodium (Enoxaparin 100 Mg/1 Ml Inj) 100 mg SUB-Q Q12H [facility]; Protocol Last Admin: 07/23/21 10:32 Dose: 100 mg Famotidine (Famotidine 20 Mg Tab) 20 mg PO BID [facility] Last Admin: 07/23/21 10:32 Dose: 20 mg Furosemide (Furosemide 20 Mg/2 Ml Inj) 20 mg IV BID@0600,1800 [facility] Last Admin: 07/23/21 06:38 Dose: 20 mg Guaifenesin (Guaifenesin 100 Mg/5 Ml Oral Liqd) 200 mg PO Q4H PRN PRN Reason: Cough Hydromorphone HCl (Hydromorphone 1 Mg/1 Ml Inj) 0.5 mg IV Q12H PRN PRN Reason: Pain , Severe (7-10) Last Admin: 07/22/21 20:56 Dose: 0.5 mg Ceftriaxone Sodium (Rocephin/Ns 2 Gm/100 Ml) 2 gm in 100 mls @ 200 mls/hr IV Q24H YOUNG; Protocol Ibuprofen (Ibuprofen 400 Mg Tab) 400 mg PO Q8H PRN PRN Reason: neck pain Insulin Human Lispro (Insulin Lispro 100 Unit/Ml) 0 unit SUB-Q Q6HR YOUNG; Pr otocol Last Admin: 07/23/21 13:12 Dose: Not Given Metoprolol Tartrate (Metoprolol Tartrate 25 Mg Tab) 25 mg PO BID YOUNG Morphine Sulfate (Morphine 2 Mg/1 Ml Inj) 2 mg IV Q6H PRN PRN Reason: Pain, Moderate (4-6) Nitroglycerin (Nitroglycerin 0.4 Mg Tab Subl) 0.4 mg SL .Q5MIN PRN PRN Reason: Chest Pain Ondansetron HCl (Ondansetron 4 Mg/2 Ml Inj) 4 mg IV Q8H PRN PRN Reason: Nausea And Vomiting Sodium Chloride (Sodium Chloride 0.9% 10 Ml Flush Syringe) 10 ml IV BID [facility] Last Admin: 07/23/21 10:33 Dose: 10 ml Sodium Chloride (Sodium Chloride 0.9% 10 Ml Flush Syringe) 10 ml IV PRN PRN PRN Reason: LINE FLUSH Tramadol HCl (Tramadol 50 Mg Tab) 50 mg PO Q6H PRN PRN Reason: Pain, Moderate (4-6) Review of Systems Constitutional: weakness Ears, nose, mouth and throat: no nasal discharge, no sinus pressure, no sinus pa in Cardiovascular: no chest pain, no orthopnea, no palpitations, no shortness of breath, no dyspnea on exertion Respiratory: no shortness of breath, no dyspnea on exertion Gastrointestinal: no abdominal pain, no nausea, no vomiting Musculoskeletal: no neck stiffness, no neck pain, no shooting arm pain Integumentary: no rash, no pruritis, no redness Neurological: weakness, no head injury, no transient paralysis Psychiatric: no anxiety, no memory loss Endocrine: no cold intolerance, no heat intolerance Hematologic/Lymphatic: no easy bruising, no easy bleeding Physical Examination Vital Signs Temp Pulse Resp BP Pulse Ox 98.3 F 97 H 20 131/86 91 07/22/21 10:47 07/22/21 10:47 07/22/21 10:47 07/22/21 10:47 07/22/21 10:47 General appearance: no acute distress HEENT: Positive: PERRL Neck: Positive: trachea midline Cardiac: Positive: Reg Rate and Rhythm Lungs: Positive: Normal Breath Sounds Neuro: Positive: Grossly Intact Abdomen: Positive: Soft, Active Bowel Sounds Skin: Negative: Rash, Suspicious Lesions, Ulceration Extremities: Present: upper extr. pulses. Absent: edema Results 07/22/21 17:01 07/22/21 12:53 Lipids 07/22/21 Range/Units 12:53 Triglycerides 161 H (2-149) mg/dL Cholesterol 234 H (50-199) mg/dL HDL Cholesterol 40 (40-59) mg/dL Cholesterol/HDL Ratio 5.85 % CBC 07/22/21 Range/Units 17:01 WBC 7.8 (4.5-11.0) K/mm3 RBC 4.40 (3.65-5.03) M/mm3 Hgb 14.6 (11.8-15.2) gm/dl Hct 42.6 (35.5-45.6) % Plt Count 161 (140-440) K/mm3 Lymph # (Auto) 2.1 (1.2-5.4) K/mm3 [place] # (Auto) 0.6 (0.0-0.8) K/mm3 Eos # (Auto) 0.1 (0.0-0.4) K/mm3 Baso # (Auto) 0.0 (0.0-0.1) K/mm3 - Imaging and Cardiology Echo: pending EKG: report reviewed, image reviewed EKG interpretations - Telemetry EKG Rhythm: Sinus Rhythm - EKG Sinus rhythms and dysrhythmias: sinus rhythm Ventricular dysrhythmias: ventricular escape comple Assessment and Plan Patient is a 71-year-old male who reports a past medical history of paroxysmal A. fib and history of DVT who presented to the ED with complaint of sudden onset of weakness which occurred yesterday morning. NSTEMI Double vision Weakness Hypertension Paroxysmal A. fib History of DVTs Hyperlipidemia Echo 07/22/2021-EF 55 to 60% transmitral Doppler flow (impaired relaxation. Mild to moderate tricuspid regurgitation. Moderate pulmonary hypertension Plan: EKG shows sinus rhythm 97 with PVCs no acute ischemic changes. Troponins noted to be elevated however have begun to decrease. Patient denies any previous complaints of chest pain and remains chest pain-free BNP noted to be negative, chest x-ray negative, patient appears euvolemic on exam, and patient denies any complaints of shortness of breath or difficulty breathing. Patient is not clinically in heart failure Patient reports history of paroxysmal A. fib and DVTs however reports not being on anticoagulation because he does not like the effects. And reports taking garlic Patient currently on aspirin and Lipitor, amlodipine, Lovenox Will initiate metoprolol 25 mg p.o. twice daily Will plan for stress test on Monday Due to complaint of double vision, sudden weakness, and patient not on anticoagulation with history of PAF primary team may wish to consider neuro consult Patient seen in conjunction with Dr. Agustin who agrees with this plan of care - Patient Problems (1) H/O deep venous thrombosis Current Visit: Yes Status: Acute (2) Hypertension Current Visit: Yes Status: Acute Qualifiers: Hypertension type: primary hypertension Qualified Code(s): I10 - Essential (primary) hypertension (3) NSTEMI (non-ST elevated myocardial infarction) Current Visit: Yes Status: Acute (4) Insulin dependent diabetes mellitus Current Visit: No Status: Acute (5) PAF (paroxysmal atrial fibrillation) Current Visit: No Status: Chronic
[2021-07-23 15:16] LABS: Bilirubin,Urine NEG (Negative); Blood,Urine SM (Negative); Color,Urine Yellow (Yellow); Mucus,Urine 1+ /HPF; Protein,Urine <15 mg/dL mg/dL (Negative); Urobilinogen,Urine < 2.0 mg/dL (<2.0)
[2021-07-23] MEDS: METOPROLOL TARTRATE 25 MG TAB PO SCH ×2 (15:31→22:11)
--- NOTE | 2021-07-23 17:11 | Electrocardiograph Report ---
[facility] Test Date: 2021-07-22 Test Time: 10:55:52 Pat Name: JOYCE GUEVARA JR Department: Room: A473 Gender: M Lamination Inspector: YANIRA : 1950 Requested By: CRISTEL LONDON Order Number: [id number] Reading MD: Dominik Braden Measurements Intervals [place] Rate: 97 P: 60 VT: 164 QRS: -10 QRSD: 95 T: 5 QT: 364 QTc: 462 Interpretive Statements Sinus rhythm Ventricular premature complex No previous ECG available for comparison Electronically Signed On 07-23-2021 17:10:56 EDT by Dominik Braden
--- NOTE | 2021-07-23 17:23 | Electrocardiograph Report ---
[facility] Test Date: 2021-07-23 Test Time: 11:24:52 Pat Name: JOYCE GUEVARA JR Department: Room: A473 1 Gender: M Hand Alterations Tailor: OTONIEL : 1950 Requested By: CHAVA BERKOWITZ Order Number: [id number] Reading MD: Dominik Braden Measurements Intervals [place] Rate: 96 P: 65 PA: 166 QRS: 8 QRSD: 88 T: -20 QT: 371 QTc: 468 Interpretive Statements Sinus rhythm with intermittent PACs Otherwise, normal ECG Compared to ECG 07/22/2021 10:55:52 PVCs are no longer evident Electronically Signed On 07-23-2021 17:23:27 EDT by Dominik Braden
[2021-07-23] MEDS: guaiFENesin 100 MG/5 ML ORAL LIQD PO PRN (20:19)
[2021-07-23] MEDS: CYCLOBENZAPRINE 10 MG TAB PO SCH (22:10)
[2021-07-23] MEDS: cefTRIAXone/NS 2 GM/100 ML 2 GM/100 ML BAG IV SCH (22:11)
[2021-07-24] MEDS: INSULIN LISPRO 100 UNIT/ML SUB-Q SCH ×4 (00:05→17:03)
[2021-07-24 08:01] LABS: BUN/Creatinine Ratio 14; Blood Urea Nitrogen 19 mg/dL (9-20); Calcium 8.5 mg/dL (8.4-10.2); Hemolysis Index 13
[2021-07-24 08:14] LABS: Hematocrit 44.3 % (35.5-45.6); Hemoglobin 15.2 gm/dl (11.8-15.2); Mean Corpuscular HGB Conc 34 % (32-34); Mean Corpuscular Volume 97 fl (84-94); Platelet Count 188 K/mm3 (140-440); Red Blood Count 4.57 M/mm3 (3.65-5.03); Red Cell Distribution Width 12.6 % (13.2-15.2)
--- NOTE | 2021-07-24 08:29 | Progress Note ---
Assessment and Plan Assessment and plan: #Near syncope -CT head negative for acute process -patient reports feeling lightheadedness and dizziness while ambulating prior to coming to ED -questionable diplopia -will consult Neurology for further assistance #PAF (paroxysmal atrial fibrillation) -not on AC at home -continue theraputic lovenox and metoprolol while inpatient -discussed increased risk of stroke to patient, opted to not resume AC at discharge -telemetry #NSTEMI (non-ST elevated myocardial infarction) -Troponin peak 0.121 -Echocardiogram: LVEF 55 to 60%, mild to moderate tricuspid regurg and moderate pulmonary hypertension. -Cardiology following, plan for stress test Monday #Diastolic CHF -not in acute exacerbation -strict I/O, monitor urine output every shift, daily weight #Diabetes Insulin protocol, hypoglycemia protocol, Accu-Chek, consistent carbohydrate diet. #Hypertension -continue BP medications -will continue to monitor #Vascular dementia #Cerebral atherosclerosis Antiplatelet therapy as clinically indicated, supportive care. Risk factor reduction. #Advanced care planning -Disease education, care plan, diagnosis, prognosis discussed with next of kin. Family understands and acknowledges current plan. -Time: +30 minutes History Interval history: No acute events overnight. Patient reports feeling drowsy. Denies headache, chest pain or worsening shortness of breath at this time. Updated with care plan. Voiced understanding. Hospitalist Physical - Physical exam Narrative exam: GENERAL: Well-developed well-nourished. In no acute distress. HEENT: 3 L nasal cannula. CHEST/LUNGS: Coarse breath sounds bilaterally. HEART/CARDIOVASCULAR: Irregular irregular rhythm. No murmur, rubs or gallops appreciated. ABDOMEN: +BS. NT/ND. NEURO: No focal motor deficit. Follows all commands. EXTREMITIES: No cyanosis, clubbing or edema. PSYCH: Cooperative. - Constitutional Vitals: Temp Pulse Resp BP Pulse Ox 98.0 F 62 18 125/77 99 07/24/21 07:50 07/24/21 07:50 07/24/21 07:50 07/24/21 07:50 07/24/21 07:50 General appearance: Present: mild distress HEART Score - HEART Score Troponin: Troponin T 0.105 ng/mL (0.00-0.029) H* 07/23/21 05:36 Results - Labs CBC & Chem 7: 07/24/21 07:20 07/24/21 07:20 Labs: Laboratory Last Values WBC 9.7 K/mm3 (4.5-11.0) 07/24/21 07:20 RBC 4.57 M/mm3 (3.65-5.03) 07/24/21 07:20 Hgb 15.2 gm/dl (11.8-15.2) 07/24/21 07:20 Hct 44.3 % (35.5-45.6) 07/24/21 07:20 MCV 97 fl (84-94) H 07/24/21 07:20 MCH 33 pg (28-32) H 07/24/21 07:20 MCHC 34 % (32-34) 07/24/21 07:20 RDW 12.6 % (13.2-15.2) L 07/24/21 07:20 Plt Count 188 K/mm3 (140-440) 07/24/21 07:20 Lymph % (Auto) 26.6 % (13.4-35.0) 07/22/21 17:01 [place] % (Auto) 8.1 % (0.0-7.3) H 07/22/21 17:01 Eos % (Auto) 0.9 % (0.0-4.3) 07/22/21 17:01 Baso % (Auto) 0.6 % (0.0-1.8) 07/22/21 17:01 Lymph # (Auto) 2.1 K/mm3 (1.2-5.4) 07/22/21 17:01 [place] # (Auto) 0.6 K/mm3 (0.0-0.8) 07/22/21 17:01 Eos # (Auto) 0.1 K/mm3 (0.0-0.4) 07/22/21 17:01 Baso # (Auto) 0.0 K/mm3 (0.0-0.1) 07/22/21 17:01 Seg Neutrophils % 63.8 % (40.0-70.0) 07/22/21 17:01 Seg Neutrophils # 5.0 K/mm3 (1.8-7.7) 07/22/21 17:01 Sodium 138 mmol/L (137-145) 07/24/21 07:20 Potassium 4.5 mmol/L (3.6-5.0) 07/24/21 07:20 Chloride 99.4 mmol/L (98-107) 07/24/21 07:20 Carbon Dioxide 27 mmol/L (22-30) 07/24/21 07:20 Anion Gap 16 mmol/L 07/24/21 07:20 BUN 19 mg/dL (9-20) 07/24/21 07:20 Creatinine 1.4 mg/dL (0.8-1.3) H 07/24/21 07:20 Estimated GFR > 60 ml/min 07/24/21 07:20 BUN/Creatinine Ratio 14 % 07/24/21 07:20 Glucose 94 mg/dL (75-100) 07/24/21 07:20 POC Glucose 98 mg/dL (70-105) 07/23/21 23:24 Lactic Acid 1.60 mmol/L (0.7-2.0) 07/22/21 12:53 Calcium 8.5 mg/dL (8.4-10.2) 07/24/21 07:20 Total Bilirubin 1.00 mg/dL (0.1-1.2) 07/22/21 12:53 AST 24 units/L (5-40) 07/22/21 12:53 ALT 16 units/L (7-56) 07/22/21 12:53 Alkaline Phosphatase 81 units/L (35-129) 07/22/21 12:53 Troponin T 0.105 ng/mL (0.00-0.029) H* 07/23/21 05:36 NT-Pro-B Natriuret Pep 812.1 pg/mL (0-900) 07/23/21 00:16 Total Protein 7.9 g/dL (6.3-8.2) 07/22/21 12:53 Albumin 4.4 g/dL (3.9-5) 07/22/21 12:53 Albumin/Globulin Ratio 1.3 % 07/22/21 12:53 Triglycerides 161 mg/dL (2-149) H 07/22/21 12:53 Cholesterol 234 mg/dL (50-199) H 07/22/21 12:53 LDL Cholesterol Direct 174 mg/dL (50-130) H 07/22/21 12:53 HDL Cholesterol 40 mg/dL (40-59) 07/22/21 12:53 Cholesterol/HDL Ratio 5.85 % 07/22/21 12:53 Urine Color Yellow (Yellow) 07/23/21 14:33 Urine Turbidity Clear (Clear) 07/23/21 14:33 Urine pH 5.0 (5.0-7.0) 07/23/21 14:33 Ur Specific [place] 1.013 (1.003-1.030) 07/23/21 14:33 Urine Protein <15 mg/dl mg/dL (Negative) 07/23/21 14:33 Urine Glucose (UA) Neg mg/dL (Negative) 07/23/21 14:33 Urine Ketones Neg mg/dL (Negative) 07/23/21 14:33 Urine Blood Sm (Negative) 07/23/21 14:33 Urine Nitrite Neg (Negative) 07/23/21 14:33 Urine Bilirubin Neg (Negative) 07/23/21 14:33 Urine Urobilinogen < 2.0 mg/dL (<2.0) 07/23/21 14:33 Ur Leukocyte Esterase Neg (Negative) 07/23/21 14:33 Urine WBC (Auto) 1.0 /HPF (0.0-6.0) 07/23/21 14:33 Urine RBC (Auto) 1.0 /HPF (0.0-6.0) 07/23/21 14:33 Urine Mucus 1+ /HPF 07/23/21 14:33 Coronavirus (PCR) Negative (Negative) 07/23/21 01:08 Microbiology: Microbiology 07/22/21 12:53 Peripheral/Venous Blood Culture - Preliminary NO GROWTH AFTER 24 HOURS 07/22/21 12:53 Peripheral/Venous Blood Culture - Preliminary NO GROWTH AFTER 24 HOURS Anne/IV: Voiding Method Urinal Active Medications - Current Medications Current Medications: Generic Name Dose Route Start Last Admin Trade Name Freq PRN Reason Stop Dose Admin Acetaminophen 650 mg 07/22/21 16:44 Acetaminophen 325 Mg Tab PO Q4H PRN Pain MILD(1-3)/Fever >100.5/SOLORZANO Albuterol 2.5 mg 07/22/21 16:44 Albuterol 2.5 Mg/3 Ml Nebu IH Q4HRT PRN Shortness Of Breath Amlodipine Besylate 5 mg 07/23/21 10:00 07/23/21 10:32 Amlodipine 5 Mg Tab PO 5 mg QDAY YOUNG Administration Aspirin 81 mg 07/23/21 10:00 07/23/21 10:32 Aspirin 81 Mg Tab Chew PO 81 mg DAILY YOUNG Administration Atorvastatin Calcium 40 mg 07/22/21 22:00 07/23/21 22:10 Atorvastatin 40 Mg Tab PO 40 mg QHS YOUNG Administration Azithromycin 500 mg 07/23/21 10:00 07/23/21 10:32 Azithromycin 250 Mg Tab PO 500 mg QDAY YOUNG Administration Protocol Cyclobenzaprine HCl 5 mg 07/22/21 22:00 07/23/21 22:10 Cyclobenzaprine 10 Mg Tab PO 5 mg QHS YOUNG Administration Dextrose 50 ml 07/22/21 21:32 Dextrose 50% In Water (25gm) 50 Ml Syringe IV Q30MIN PRN Hypoglycemia Protocol Enoxaparin Sodium 100 mg 07/23/21 10:00 07/23/21 22:06 Enoxaparin 100 Mg/1 Ml Inj SUB-Q 100 mg Q12H YOUNG Administration Protocol Famotidine 20 mg 07/22/21 22:00 07/23/21 22:11 Famotidine 20 Mg Tab PO 20 mg BID YOUNG Administration Guaifenesin 200 mg 07/23/21 01:14 07/23/21 20:19 Guaifenesin 100 Mg/5 Ml Oral Liqd PO 200 mg Q4H PRN Administration Cough Hydromorphone HCl 0.5 mg 07/22/21 16:44 07/22/21 20:56 Hydromorphone 1 Mg/1 Ml Inj IV 0.5 mg Q12H PRN Administration Pain , Severe (7-10) Ceftriaxone Sodium 2 gm in 100 mls @ 200 mls/hr 07/23/21 22:00 07/23/21 22:11 Rocephin/Ns 2 Gm/100 Ml IV 200 mls/hr Q24H YOUNG Administration Protocol Ibuprofen 400 mg 07/22/21 21:22 Ibuprofen 400 Mg Tab PO Q8H PRN neck pain Insulin Human Lispro 0 unit 07/23/21 00:00 07/24/21 05:53 Insulin Lispro 100 Unit/Ml SUB-Q Not Given Q6HR [facility] Protocol Metoprolol Tartrate 25 mg 07/23/21 14:00 07/23/21 22:11 Metoprolol Tartrate 25 Mg Tab PO 25 mg BID YOUNG Administration Morphine Sulfate 2 mg 07/22/21 16:44 Morphine 2 Mg/1 Ml Inj IV Q6H PRN Pain, Moderate (4-6) Nitroglycerin 0.4 mg 07/22/21 16:45 Nitroglycerin 0.4 Mg Tab Subl SL .Q5MIN PRN Chest Pain Ondansetron HCl 4 mg 07/22/21 16:44 Ondansetron 4 Mg/2 Ml Inj IV Q8H PRN Nausea And Vomiting Sodium Chloride 10 ml 07/22/21 22:00 07/23/21 22:11 Sodium Chloride 0.9% 10 Ml Flush Syringe IV 10 ml BID YOUNG Administration Sodium Chloride 10 ml 07/22/21 16:44 Sodium Chloride 0.9% 10 Ml Flush Syringe IV PRN PRN LINE FLUSH Tramadol HCl 50 mg 07/22/21 21:25 Tramadol 50 Mg Tab PO Q6H PRN Pain, Moderate (4-6)
[2021-07-24] MEDS: FAMOTIDINE 20 MG TAB PO SCH ×2 (09:44→21:22)
[2021-07-24] MEDS: ASPIRIN 81 MG TAB CHEW PO SCH (09:44)
[2021-07-24] MEDS: AZITHROMYCIN 250 MG TAB PO SCH (09:44)
[2021-07-24] MEDS: METOPROLOL TARTRATE 25 MG TAB PO SCH ×2 (09:44→21:29)
[2021-07-24] MEDS: amLODIPine 5 MG TAB PO SCH (09:44)
[2021-07-24] MEDS: ENOXAPARIN 100 MG/1 ML INJ SUB-Q SCH ×2 (09:47→21:21)
--- NOTE | 2021-07-24 10:02 | Progress Note ---
Assessment and Plan Patient is a 71-year-old male who reports a past medical history of paroxysmal A. fib and history of DVT who presented to the ED with complaint of sudden onset of weakness which occurred yesterday morning. NSTEMI Double vision Weakness Hypertension Paroxysmal A. fib History of DVTs Hyperlipidemia Echo 07/22/2021-EF 55 to 60% transmitral Doppler flow (impaired relaxation. Mild to moderate tricuspid regurgitation. Moderate pulmonary hypertension Plan: EKG shows sinus rhythm 97 with PVCs no acute ischemic changes. Troponins noted to be elevated however have begun to decrease. Patient denies any previous complaints of chest pain and remains chest pain-free BNP noted to be negative, chest x-ray negative, patient appears euvolemic on exam, and patient denies any complaints of shortness of breath or difficulty breathing. Patient is not clinically in heart failure Patient reports history of paroxysmal A. fib and DVTs however reports not being on anticoagulation because he does not like the effects. And reports taking garlic Patient currently on aspirin and Lipitor, amlodipine, Lovenox Will initiate metoprolol 25 mg p.o. twice daily Will plan for stress test on Monday Due to complaint of double vision, sudden weakness, and patient not on anticoagulation with history of PAF primary team may wish to consider neuro consult Subjective Date of service: 07/24/21 Interval history: Seen at bedside. Sitting up and eating and without complaints. Pleasant. Objective Vital Signs Temp Pulse Pulse Resp BP Pulse Ox 07/24/21 07:50 98.0 F 62 18 125/77 99 07/24/21 03:46 99.1 F 66 17 127/66 99 07/24/21 02:00 105 H 07/24/21 00:00 119 H 18 96 07/23/21 23:24 99.9 F H 95 H 16 121/60 97 07/23/21 22:00 94 07/23/21 19:28 99.7 F H 99 H 18 123/82 94 07/23/21 18:00 98 H 07/23/21 15:31 99 H 07/23/21 15:12 98.8 F 96 H 107/63 98 07/23/21 12:00 119 H 18 96 - Physical Examination HEENT: Positive: PERRL Neck: Positive: trachea midline Neuro: Positive: Grossly Intact Abdomen: Positive: Soft, Active Bowel Sounds Skin: Negative: Rash, Suspicious Lesions, Ulceration Extremities: Present: upper extr. pulses. Absent: edema - Labs and Meds CBC 07/24/21 Range/Units 07:20 WBC 9.7 (4.5-11.0) K/mm3 RBC 4.57 (3.65-5.03) M/mm3 Hgb 15.2 (11.8-15.2) gm/dl Hct 44.3 (35.5-45.6) % Plt Count 188 (140-440) K/mm3 Comprehensive Metabolic Panel 07/24/21 Range/Units 07:20 Sodium 138 (137-145) mmol/L Potassium 4.5 (3.6-5.0) mmol/L Chloride 99.4 (98-107) mmol/L Carbon Dioxide 27 (22-30) mmol/L BUN 19 (9-20) mg/dL Creatinine 1.4 H (0.8-1.3) mg/dL Glucose 94 (75-100) mg/dL Calcium 8.5 (8.4-10.2) mg/dL - Imaging and Cardiology EKG: report reviewed, image reviewed Echo: pending - EKG Sinus rhythms and dysrhythmias: sinus rhythm Ventricular dysrhythmias: ventricular escape comple
[2021-07-24] MEDS: SODIUM CHLORIDE 0.9% 1000 ML 1,000 ML IV SCH (11:32)
[2021-07-24] MEDS: CYCLOBENZAPRINE 10 MG TAB PO SCH (21:21)
[2021-07-24] MEDS: cefTRIAXone/NS 2 GM/100 ML 2 GM/100 ML BAG IV SCH (21:29)
[2021-07-24] MEDS: guaiFENesin 100 MG/5 ML ORAL LIQD PO PRN (23:43)
[2021-07-25] MEDS: INSULIN LISPRO 100 UNIT/ML SUB-Q SCH ×4 (00:12→18:15)
[2021-07-25] MEDS: ACETAMINOPHEN 325 MG TAB PO PRN ×2 (04:05→20:54)
--- NOTE | 2021-07-25 07:44 | Progress Note ---
Hospitalist Physical - Constitutional Vitals: Temp Pulse Resp BP Pulse Ox 98.6 F 50 L 16 127/60 94 07/25/21 06:32 07/25/21 03:51 07/25/21 03:51 07/25/21 03:51 07/25/21 03:51 General appearance: Present: mild distress HEART Score - HEART Score Troponin: Troponin T 0.105 ng/mL (0.00-0.029) H* 07/23/21 05:36 Results - Labs CBC & Chem 7: 07/24/21 07:20 07/24/21 07:20 Labs: Laboratory Last Values WBC 9.7 K/mm3 (4.5-11.0) 07/24/21 07:20 RBC 4.57 M/mm3 (3.65-5.03) 07/24/21 07:20 Hgb 15.2 gm/dl (11.8-15.2) 07/24/21 07:20 Hct 44.3 % (35.5-45.6) 07/24/21 07:20 MCV 97 fl (84-94) H 07/24/21 07:20 MCH 33 pg (28-32) H 07/24/21 07:20 MCHC 34 % (32-34) 07/24/21 07:20 RDW 12.6 % (13.2-15.2) L 07/24/21 07:20 Plt Count 188 K/mm3 (140-440) 07/24/21 07:20 Lymph % (Auto) 26.6 % (13.4-35.0) 07/22/21 17:01 [place] % (Auto) 8.1 % (0.0-7.3) H 07/22/21 17:01 Eos % (Auto) 0.9 % (0.0-4.3) 07/22/21 17:01 Baso % (Auto) 0.6 % (0.0-1.8) 07/22/21 17:01 Lymph # (Auto) 2.1 K/mm3 (1.2-5.4) 07/22/21 17:01 [place] # (Auto) 0.6 K/mm3 (0.0-0.8) 07/22/21 17:01 Eos # (Auto) 0.1 K/mm3 (0.0-0.4) 07/22/21 17:01 Baso # (Auto) 0.0 K/mm3 (0.0-0.1) 07/22/21 17:01 Seg Neutrophils % 63.8 % (40.0-70.0) 07/22/21 17:01 Seg Neutrophils # 5.0 K/mm3 (1.8-7.7) 07/22/21 17:01 Sodium 138 mmol/L (137-145) 07/24/21 07:20 Potassium 4.5 mmol/L (3.6-5.0) 07/24/21 07:20 Chloride 99.4 mmol/L (98-107) 07/24/21 07:20 Carbon Dioxide 27 mmol/L (22-30) 07/24/21 07:20 Anion Gap 16 mmol/L 07/24/21 07:20 BUN 19 mg/dL (9-20) 07/24/21 07:20 Creatinine 1.4 mg/dL (0.8-1.3) H 07/24/21 07:20 Estimated GFR > 60 ml/min 07/24/21 07:20 BUN/Creatinine Ratio 14 % 07/24/21 07:20 Glucose 94 mg/dL (75-100) 07/24/21 07:20 POC Glucose 152 mg/dL (70-105) H 07/24/21 21:04 Lactic Acid 1.60 mmol/L (0.7-2.0) 07/22/21 12:53 Calcium 8.5 mg/dL (8.4-10.2) 07/24/21 07:20 Total Bilirubin 1.00 mg/dL (0.1-1.2) 07/22/21 12:53 AST 24 units/L (5-40) 07/22/21 12:53 ALT 16 units/L (7-56) 07/22/21 12:53 Alkaline Phosphatase 81 units/L (35-129) 07/22/21 12:53 Troponin T 0.105 ng/mL (0.00-0.029) H* 07/23/21 05:36 NT-Pro-B Natriuret Pep 812.1 pg/mL (0-900) 07/23/21 00:16 Total Protein 7.9 g/dL (6.3-8.2) 07/22/21 12:53 Albumin 4.4 g/dL (3.9-5) 07/22/21 12:53 Albumin/Globulin Ratio 1.3 % 07/22/21 12:53 Triglycerides 161 mg/dL (2-149) H 07/22/21 12:53 Cholesterol 234 mg/dL (50-199) H 07/22/21 12:53 LDL Cholesterol Direct 174 mg/dL (50-130) H 07/22/21 12:53 HDL Cholesterol 40 mg/dL (40-59) 07/22/21 12:53 Cholesterol/HDL Ratio 5.85 % 07/22/21 12:53 Urine Color Yellow (Yellow) 07/23/21 14:33 Urine Turbidity Clear (Clear) 07/23/21 14:33 Urine pH 5.0 (5.0-7.0) 07/23/21 14:33 Ur Specific [place] 1.013 (1.003-1.030) 07/23/21 14:33 Urine Protein <15 mg/dl mg/dL (Negative) 07/23/21 14:33 Urine Glucose (UA) Neg mg/dL (Negative) 07/23/21 14:33 Urine Ketones Neg mg/dL (Negative) 07/23/21 14:33 Urine Blood Sm (Negative) 07/23/21 14:33 Urine Nitrite Neg (Negative) 07/23/21 14:33 Urine Bilirubin Neg (Negative) 07/23/21 14:33 Urine Urobilinogen < 2.0 mg/dL (<2.0) 07/23/21 14:33 Ur Leukocyte Esterase Neg (Negative) 07/23/21 14:33 Urine WBC (Auto) 1.0 /HPF (0.0-6.0) 07/23/21 14:33 Urine RBC (Auto) 1.0 /HPF (0.0-6.0) 07/23/21 14:33 Urine Mucus 1+ /HPF 07/23/21 14:33 Coronavirus (PCR) Negative (Negative) 07/23/21 01:08 Microbiology: Microbiology 07/22/21 12:53 Peripheral/Venous Blood Culture - Preliminary NO GROWTH AFTER 48 HOURS 07/22/21 12:53 Peripheral/Venous Blood Culture - Preliminary NO GROWTH AFTER 48 HOURS Anne/IV: Voiding Method Urinal Active Medications - Current Medications Current Medications: Generic Name Dose Route Start Last Admin Trade Name Freq PRN Reason Stop Dose Admin Acetaminophen 650 mg 07/22/21 16:44 07/25/21 04:05 Acetaminophen 325 Mg Tab PO 650 mg Q4H PRN Administration Pain MILD(1-3)/Fever >100.5/SOLORZANO Albuterol 2.5 mg 07/22/21 16:44 Albuterol 2.5 Mg/3 Ml Nebu IH Q4HRT PRN Shortness Of Breath Amlodipine Besylate 5 mg 07/23/21 10:00 07/24/21 09:44 Amlodipine 5 Mg Tab PO 5 mg QDAY YOUNG Administration Aspirin 81 mg 07/23/21 10:00 07/24/21 09:44 Aspirin 81 Mg Tab Chew PO 81 mg DAILY YOUNG Administration Atorvastatin Calcium 40 mg 07/22/21 22:00 07/24/21 21:22 Atorvastatin 40 Mg Tab PO 40 mg QHS YOUNG Administration Azithromycin 500 mg 07/23/21 10:00 07/24/21 09:44 Azithromycin 250 Mg Tab PO 500 mg QDAY YOUNG Administration Protocol Cyclobenzaprine HCl 5 mg 07/22/21 22:00 07/24/21 21:21 Cyclobenzaprine 10 Mg Tab PO 5 mg QHS [id number] Administration Dextrose 50 ml 07/22/21 21:32 Dextrose 50% In Water (25gm) 50 Ml Syringe IV Q30MIN PRN Hypoglycemia Protocol Enoxaparin Sodium 100 mg 07/23/21 10:00 07/24/21 21:21 Enoxaparin 100 Mg/1 Ml Inj SUB-Q 100 mg Q12H YOUNG Administration Protocol Famotidine 20 mg 07/22/21 22:00 07/24/21 21:22 Famotidine 20 Mg Tab PO 20 mg BID YOUNG Administration Guaifenesin 200 mg 07/23/21 01:14 07/24/21 23:43 Guaifenesin 100 Mg/5 Ml Oral Liqd PO 200 mg Q4H PRN Administration Cough Hydromorphone HCl 0.5 mg 07/22/21 16:44 07/22/21 20:56 Hydromorphone 1 Mg/1 Ml Inj IV 0.5 mg Q12H PRN Administration Pain , Severe (7-10) Ceftriaxone Sodium 2 gm in 100 mls @ 200 mls/hr 07/23/21 22:00 07/24/21 21:59 Rocephin/Ns 2 Gm/100 Ml IV Infused Q24H [facility] Infusion Protocol Sodium Chloride 1,000 mls @ 50 mls/hr 07/24/21 11:00 07/24/21 11:32 Nacl 0.9% 1000 Ml IV 50 mls/hr DIRECT YOUNG Administration Ibuprofen 400 mg 07/22/21 21:22 Ibuprofen 400 Mg Tab PO Q8H PRN neck pain Insulin Human Lispro 0 unit 07/23/21 00:00 07/25/21 07:29 Insulin Lispro 100 Unit/Ml SUB-Q Not Given Q6HR [facility] Protocol Metoprolol Tartrate 25 mg 07/23/21 14:00 07/24/21 21:29 Metoprolol Tartrate 25 Mg Tab PO 25 mg BID YOUNG Administration Morphine Sulfate 2 mg 07/22/21 16:44 Morphine 2 Mg/1 Ml Inj IV Q6H PRN Pain, Moderate (4-6) Nitroglycerin 0.4 mg 07/22/21 16:45 Nitroglycerin 0.4 Mg Tab Subl SL .Q5MIN PRN Chest Pain Ondansetron HCl 4 mg 07/22/21 16:44 Ondansetron 4 Mg/2 Ml Inj IV Q8H PRN Nausea And Vomiting Sodium Chloride 10 ml 07/22/21 22:00 07/24/21 21:30 Sodium Chloride 0.9% 10 Ml Flush Syringe IV 10 ml BID YOUNG Administration Sodium Chloride 10 ml 07/22/21 16:44 Sodium Chloride 0.9% 10 Ml Flush Syringe IV PRN PRN LINE FLUSH Tramadol HCl 50 mg 07/22/21 21:25 Tramadol 50 Mg Tab PO Q6H PRN Pain, Moderate (4-6)
--- NOTE | 2021-07-25 08:01 | Consultation ---
History of Present Illness Consult date: 07/25/21 Reason for Consult: weakness and possible syncopy,Hx of AF History of present illness: I feel weak and I may have passed out History of present illness: 71 YO Male with Obesity, DM, HTN, Paroxysmal Atrial Fib since in , History of LLE DVT not currently taking therapeutic anticoagulation presents to ED for evaluation. Patient reports "I feel weak, and faint like feeling but never lost conciousness, that happened twice yesterday each lasted 4-5 mniutes Patient states that he has experienced generalized weakness over the past 1 week with persistent symptoms over the same timeframe. Patient acknowledges decreased exercise tolerance, dyspnea on exertion, dyspnea at rest, orthopnea, paroxysmal nocturnal dyspnea, and shortness of breath. Patient reports subjective weight gain over the past 1 week. Patient acknowledges a sudden onset of worsening weakness with subsequent dizziness Patient transported to [facility] via private vehicle for further care and evaluation of the aforementioned symptoms. The patient was seen and evaluated in the emergency department. All lab and imaging studies reviewed. Patient found to have NSTEMI, as well as clinical symptoms consistent with diastolic congestive heart failure. Patient admitted to telemetry and initiated on ACS protocol as well as CHF protocol. Cardiology team consulted in ED. Patient denies fever, chills, chest pain, palpitations, productive cough, skin rash, recent contact, known exposure to COVID-19. Prior admission on 05/28/2016 reviewed. All medication listed at time of admission has been reconciled. Advanced care planning conducted in ED. currently is doing well, denied hx of seizure or syncope, he is with long hx of paroxysmal AF -- not on AC according to him last took any was few yeasr back , due to side effect of medications Past History Past Medical History: atrial fib, diabetes, hypertension, other (See HPI) Past Surgical History: hernia repair Social history: , lives with family. denies: smoking, alcohol abuse, prescription drug abuse Family history: diabetes, hypertension Medications and Allergies Allergies Allergy/AdvReac Type Severity Reaction Status Date / Time No Known Allergies Allergy Verified 07/22/21 14:11 Home Medications Medication Instructions Recorded Confirmed Last Taken Type Aspirin BABY CHEW TAB 81 mg PO DAILY 05/28/16 05/28/16 Unknown History Famotidine [Pepcid] 20 mg PO BID #60 tablet 05/29/16 Unknown Rx amLODIPine 5 mg PO QDAY #30 tablet 05/29/16 Unknown Rx Cyclobenzaprine HCl [Flexeril 5 MG 5 mg PO QHS #20 tab 10/05/16 Unknown Rx TAB] Ibuprofen [Motrin 400 MG tab] 400 mg PO Q8H PRN #30 tablet 10/05/16 Unknown Rx Azithromycin [Zithromax TAB] 250 mg PO QDAY #6 tablet 10/12/19 Unknown Rx Dextromethorphan Polistirex 30 mg PO BID PRN #150 kayla.er.12h 10/12/19 Unknown Rx [12-Hour Cough Relief] Active Meds: Active Medications Acetaminophen (Acetaminophen 325 Mg Tab) 650 mg PO Q4H PRN PRN Reason: Pain MILD(1-3)/Fever >100.5/SOLORZANO Albuterol (Albuterol 2.5 Mg/3 Ml Nebu) 2.5 mg IH Q4HRT PRN PRN Reason: Shortness Of Breath Hydromorphone HCl (Hydromorphone 1 Mg/1 Ml Inj) 0.5 mg IV Q12H PRN PRN Reason: Pain , Severe (7-10) Morphine Sulfate (Morphine 2 Mg/1 Ml Inj) 2 mg IV Q6H PRN PRN Reason: Pain, Moderate (4-6) Ondansetron HCl (Ondansetron 4 Mg/2 Ml Inj) 4 mg IV Q8H PRN PRN Reason: Nausea And Vomiting Sodium Chloride (Sodium Chloride 0.9% 10 Ml Flush Syringe) 10 ml IV BID YOUNG Sodium Chloride (Sodium Chloride 0.9% 10 Ml Flush Syringe) 10 ml IV PRN PRN PRN Reason: LINE FLUSH Review of Systems Constitutional: weight gain, fatigue, weakness, no fever, no chills, no sweats Past History Past Medical History: atrial fib, diabetes, hypertension, other (See HPI) Past Surgical History: hernia repair Social history: , lives with family. denies: smoking, alcohol abuse, prescription drug abuse Family history: diabetes, hypertension Medications and Allergies Allergies Allergy/AdvReac Type Severity Reaction Status Date / Time No Known Allergies Allergy Verified 07/22/21 14:11 Home Medications Medication Instructions Recorded Confirmed Last Taken Type Aspirin BABY CHEW TAB 81 mg PO DAILY 05/28/16 07/22/21 1 Day Ago History ~07/21/21 Famotidine [Pepcid] 20 mg PO BID #60 tablet 05/29/16 07/22/21 1 Day Ago Rx ~07/21/21 amLODIPine 5 mg PO QDAY #30 tablet 05/29/16 07/22/21 1 Day Ago Rx ~07/21/21 Cyclobenzaprine HCl [Flexeril 5 MG 5 mg PO QHS #20 tab 10/05/16 07/22/21 Unknown Rx TAB] Ibuprofen [Motrin 400 MG tab] 400 mg PO Q8H PRN #30 tablet 10/05/16 07/22/21 Unknown Rx Dextromethorphan Polistirex 30 mg PO BID PRN #150 kayla.er.12h 10/12/19 07/22/21 Unknown Rx [12-Hour Cough Relief] Active Meds: Active Medications Acetaminophen (Acetaminophen 325 Mg Tab) 650 mg PO Q4H PRN PRN Reason: Pain MILD(1-3)/Fever >100.5/SOLORZANO Last Admin: 07/25/21 04:05 Dose: 650 mg Albuterol (Albuterol 2.5 Mg/3 Ml Nebu) 2.5 mg IH Q4HRT PRN PRN Reason: Shortness Of Breath Amlodipine Besylate (Amlodipine 5 Mg Tab) 5 mg PO QDAY [facility] Last Admin: 07/24/21 09:44 Dose: 5 mg Aspirin (Aspirin 81 Mg Tab Chew) 81 mg PO DAILY [facility] Last Admin: 07/24/21 09:44 Dose: 81 mg Atorvastatin Calcium (Atorvastatin 40 Mg Tab) 40 mg PO QHS [facility] Last Admin: 07/24/21 21:22 Dose: 40 mg Azithromycin (Azithromycin 250 Mg Tab) 500 mg PO QDAY [facility]; Protocol Last Admin: 07/24/21 09:44 Dose: 500 mg Cyclobenzaprine HCl (Cyclobenzaprine 10 Mg Tab) 5 mg PO QHS [facility] Last Admin: 07/24/21 21:21 Dose: 5 mg Dextrose (Dextrose 50% In Water (25gm) 50 Ml Syringe) 50 ml IV Q30MIN PRN; Protocol PRN Reason: Hypoglycemia Enoxaparin Sodium (Enoxaparin 100 Mg/1 Ml Inj) 100 mg SUB-Q Q12H [facility]; Protocol Last Admin: 07/24/21 21:21 Dose: 100 mg Famotidine (Famotidine 20 Mg Tab) 20 mg PO BID [facility] Last Admin: 07/24/21 21:22 Dose: 20 mg Guaifenesin (Guaifenesin 100 Mg/5 Ml Oral Liqd) 200 mg PO Q4H PRN PRN Reason: Cough Last Admin: 07/24/21 23:43 Dose: 200 mg Hydromorphone HCl (Hydromorphone 1 Mg/1 Ml Inj) 0.5 mg IV Q12H PRN PRN Reason: Pain , Severe (7-10) Last Admin: 07/22/21 20:56 Dose: 0.5 mg Ceftriaxone Sodium (Rocephin/Ns 2 Gm/100 Ml) 2 gm in 100 mls @ 200 mls/hr IV Q24H [facility]; Protocol Last Infusion: 07/24/21 21:59 Dose: Infused Sodium Chloride (Nacl 0.9% 1000 Ml) 1,000 mls @ 50 mls/hr IV DIRECT YOUNG Last Admin: 07/24/21 11:32 Dose: 50 mls/hr Ibuprofen (Ibuprofen 400 Mg Tab) 400 mg PO Q8H PRN PRN Reason: neck pain Insulin Human Lispro (Insulin Lispro 100 Unit/Ml) 0 unit SUB-Q Q6HR [facility]; Protocol Last Admin: 07/25/21 07:29 Dose: Not Given Metoprolol Tartrate (Metoprolol Tartrate 25 Mg Tab) 25 mg PO BID [facility] Last Admin: 07/24/21 21:29 Dose: 25 mg Morphine Sulfate (Morphine 2 Mg/1 Ml Inj) 2 mg IV Q6H PRN PRN Reason: Pain, Moderate (4-6) Nitroglycerin (Nitroglycerin 0.4 Mg Tab Subl) 0.4 mg SL .Q5MIN PRN PRN Reason: Chest Pain Ondansetron HCl (Ondansetron 4 Mg/2 Ml Inj) 4 mg IV Q8H PRN PRN Reason: Nausea And Vomiting Sodium Chloride (Sodium Chloride 0.9% 10 Ml Flush Syringe) 10 ml IV BID [facility] Last Admin: 07/24/21 21:30 Dose: 10 ml Sodium Chloride (Sodium Chloride 0.9% 10 Ml Flush Syringe) 10 ml IV PRN PRN PRN Reason: LINE FLUSH Tramadol HCl (Tramadol 50 Mg Tab) 50 mg PO Q6H PRN PRN Reason: Pain, Moderate (4-6) Physical Examination - Vital Signs Vital Signs: Vital Signs Temp Pulse Resp BP Pulse Ox 98.3 F 97 H 20 131/86 91 07/22/21 10:47 07/22/21 10:47 07/22/21 10:47 07/22/21 10:47 07/22/21 10:47 - Constitutional General appearance: comfortable - EENT EENT: Present: PERRL, mucous membranes moist - Respiratory Respiratory: Present: lungs clear, rhonchi - Cardiovascular Cardiovascular: Present: regular rate, normal S1, normal S2 Extremities: Present: no peripheral edema bilatateraly, no clubbing, cyanosis - Gastrointestinal Gastrointestinal: Present: normoactive bowel sounds - Integumentary Integumentary: Present: normal - Neurologic Cranial nerve examination: PERRL, EOMI, intact, other (subjective right latereral gaze diplopia, disappear with one eye closure) - Level of Consciousness 1a. Level of Consciousness: alert/keenly responsive - LOC Questions 1b. LOC Questions: answers both correctly - LOC Command 1c. LOC Commands: performs tasks correctly - Best Gaze 2. Best Gaze: normal - Visual 3. Visual: no visual loss - Facial Palsy 4. Facial Palsy: normal symmetrical movement - Motor Arm 5a. Motor Arm Left: no drift 5b. Motor Arm Right: no drift - Motor Leg 6a. Motor Leg Left: no drift 6b. Motor Leg Right: no drift - Limb Ataxia 7. Limb Ataxia: absent - Sensory 8. Sensory: normal - Best Language 9. Best Language: no aphasia - Dysarthria 10. Dysarthria: normal - Extinction and Inattention 11. Extinction/Inattention: no abnormality - Scoring Total Score: 0 Stroke Severity: No Stroke Symptoms Results - Laboratory Findings CBC and BMP: 07/24/21 07:20 07/25/21 06:40 Abnormal Lab Findings: Abnormal Labs 07/22/21 07/22/21 07/22/21 12:53 12:53 17:01 MCV 97 H MCH 33 H RDW 12.8 L Bowman % (Auto) 8.1 H Creatinine Glucose 117 H POC Glucose Troponin T 0.051 H Triglycerides 161 H Cholesterol 234 H LDL Cholesterol Direct 174 H 07/22/21 07/23/21 07/23/21 18:51 00:16 01:45 MCV MCH RDW [place] % (Auto) Creatinine Glucose POC Glucose 114 H Troponin T 0.073 H D 0.121 H* D Triglycerides Cholesterol LDL Cholesterol Direct 04/29/22 04/29/22 04/30/22 05:36 06:30 07:20 MCV 97 H MCH 33 H RDW 12.6 L [place] % (Auto) Creatinine Glucose POC Glucose 112 H Troponin T 0.105 H* Triglycerides Cholesterol LDL Cholesterol Direct 07/24/21 07/24/21 07/24/21 07:20 11:53 16:14 MCV MCH RDW [place] % (Auto) Creatinine 1.4 H Glucose POC Glucose 123 H 116 H Troponin T Triglycerides Cholesterol LDL Cholesterol Direct 07/24/21 21:04 MCV MCH RDW [place] % (Auto) Creatinine Glucose POC Glucose 152 H Troponin T Triglycerides Cholesterol LDL Cholesterol Direct Assessment and Plan Assessment and Plan Patient is a 71-year-old male who reports a past medical history of paroxysmal A. fib and history of DVT who presented to the ED with complaint of sudden onset of weakness which occurred yesterday morning. - Patient Problems # near syncope - noted by pt. yesterday , no syncope--each lasted 5 minutes -hx of PAF on ASA -side effect from AC -no hx of seizure -suggest cardiac monitoring -r/o bradycardia , AF and arrhythmia ,Hypoglycemia ? - doubt seizure -EEG -Avoid driving # Complaint of diplopia -new onset mostly with right lateral gaze -r/o right 6th nerve palsy , with no other associated symptoms -send for b12,A1C,TSH -Brain MRI -Thiamin IV X3 days # NSTEMI (non-ST elevated myocardial infarction) -ACS protocol: Cardiology team consulted in ED, serial cardiac enzymes, EKG, supplemental oxygen, pulse oximetry, therapeutic anticoagulation. # Diastolic CHF -Strict I/O, monitor urine output every shift, daily weight, afterload reduction, diuresis, blood pressure control. Echocardiogram ordered and pending at time of admission. # PAF (paroxysmal atrial fibrillation) - therapeutic anticoagulation, rate control, supportive care, echocardiogram ordered and pending at time of admission. # Diabetes -Insulin protocol, hypoglycemia protocol, Accu-Chek, consistent carbohydrate diet. - A1C # Hypertension -Monitor blood pressure every shift, continue medical management. # DVT prophylaxis -SCD to bilateral lower extremities while in bed continue therapeutic anticoagulation
--- NOTE | 2021-07-25 10:23 | Progress Note ---
Assessment and Plan Patient is a 71-year-old male who reports a past medical history of paroxysmal A. fib and history of DVT who presented to the ED with complaint of sudden onset of weakness which occurred yesterday morning. NSTEMI Double vision Weakness Hypertension Paroxysmal A. fib History of DVTs Hyperlipidemia Echo 07/22/2021-EF 55 to 60% transmitral Doppler flow (impaired relaxation. Mild to moderate tricuspid regurgitation. Moderate pulmonary hypertension Plan: Episode of PAF this AM. Now back in sinus rhythm. He has been flipping back and forth. We will go ahead and double his metoprolol. Patient denies any previous complaints of chest pain and remains chest pain-free BNP noted to be negative, chest x-ray negative, patient appears euvolemic on exam, and patient denies any complaints of shortness of breath or difficulty breathing. Patient is not clinically in heart failure Patient reports history of paroxysmal A. fib and DVTs however reports not being on anticoagulation because he does not like the effects. And reports taking garlic Patient currently on aspirin and Lipitor, amlodipine, Lovenox Will initiate metoprolol 25 mg p.o. twice daily Will plan for stress test on Monday Due to complaint of double vision, sudden weakness, and patient not on anticoagu lation with history of PAF primary team may wish to consider neuro consult Subjective Interval history: Seen at bedside. Sitting up and eating and without complaints. Pleasant. Objective Vital Signs Temp Pulse Resp BP Pulse Ox 07/25/21 08:19 98.5 F 94 H 18 128/78 98 07/25/21 06:32 98.6 F 07/25/21 03:51 101.2 F H 50 L 16 127/60 94 07/25/21 00:34 98.1 F 98 H 19 133/80 96 07/24/21 22:00 99 07/24/21 21:35 96 07/24/21 21:29 89 118/70 07/24/21 21:10 86 116/78 97 07/24/21 21:02 100.8 F H 105 H 19 139/80 97 07/24/21 15:44 99.4 F 96 H 18 133/77 96 07/24/21 11:23 99.2 F 89 18 118/72 96 07/24/21 11:00 91 H 98 - Physical Examination HEENT: Positive: PERRL Neck: Positive: trachea midline Neuro: Positive: Grossly Intact Abdomen: Positive: Soft, Active Bowel Sounds Skin: Negative: Rash, Suspicious Lesions, Ulceration Extremities: Present: upper extr. pulses. Absent: edema - Labs and Meds Comprehensive Metabolic Panel 07/25/21 Range/Units 06:40 Creatinine 1.2 (0.8-1.3) mg/dL - Imaging and Cardiology EKG: report reviewed, image reviewed Echo: pending - EKG Sinus rhythms and dysrhythmias: sinus rhythm Ventricular dysrhythmias: ventricular escape comple
[2021-07-25] MEDS: ASPIRIN 81 MG TAB CHEW PO SCH (10:46)
[2021-07-25] MEDS: FAMOTIDINE 20 MG TAB PO SCH ×2 (10:46→21:00)
[2021-07-25] MEDS: amLODIPine 5 MG TAB PO SCH (10:47)
[2021-07-25] MEDS: ENOXAPARIN 100 MG/1 ML INJ SUB-Q SCH (10:47)
[2021-07-25] MEDS: AZITHROMYCIN 250 MG TAB PO SCH (10:47)
[2021-07-25] MEDS: METOPROLOL TARTRATE 50 MG TAB PO SCH ×2 (10:49→21:00)
[2021-07-25] MEDS: METOPROLOL TARTRATE 25 MG TAB PO SCH (11:06)
[2021-07-25] MEDS: THIAMINE 100 MG in SODIUM CHLORIDE 0.9% 50 ML IV SCH (11:58)
--- NOTE | 2021-07-25 12:51 | Progress Note ---
Assessment and Plan Assessment and plan: #Near syncope -CT head negative for acute process -patient reports feeling lightheadedness and dizziness while ambulating prior to coming to ED -questionable diplopia -MRI brain and carotid doppler ordered -Neurology consulted, assistance appreciated #PAF (paroxysmal atrial fibrillation) -not on AC at home -continue theraputic lovenox and metoprolol while inpatient -discussed increased risk of stroke to patient, to start apixaban -telemetry #NSTEMI (non-ST elevated myocardial infarction) -Troponin peak 0.121 -Echocardiogram: LVEF 55 to 60%, mild to moderate tricuspid regurg and moderate pulmonary hypertension. -Cardiology following, plan for stress test Tomorrow #Fever -Blood cultures collected 07/23 no growth to date x48 hours -Patient with T-max of 101.2 overnight -We will continue Rocephin for 1 more dose -COVID-19 PCR negative, intial CXR negative for acute process, UA unremarkable -No source or cause of fever at this time #Diastolic CHF -not in acute exacerbation -strict I/O, monitor urine output every shift, daily weight #Type II Diabetes -continue carbohydrate diet -A1C pending -continue SSI while inpatient #Hypertension -continue BP medications -will continue to monitor #Vascular dementia #Cerebral atherosclerosis Antiplatelet therapy as clinically indicated, supportive care. Risk factor reduction. #Advanced care planning -Disease education, care plan, diagnosis, prognosis discussed with next of kin. Family understands and acknowledges current plan. -Time: +30 minutes History Interval history: No acute events overnight. Patient reports cough most prominent at night and nonproductive. Aware of fever overnight. Has no other constitutional symptoms besides cough. Noted to have fever and night of admission. Hospitalist Physical - Physical exam Narrative exam: GENERAL: Well-developed well-nourished. In no acute distress. HEENT: 3 L nasal cannula. CHEST/LUNGS: Coarse breath sounds bilaterally. HEART/CARDIOVASCULAR: Irregular irregular rhythm. No murmur, rubs or gallops appreciated. ABDOMEN: +BS. NT/ND. NEURO: No focal motor deficit. Follows all commands. EXTREMITIES: No cyanosis, clubbing or edema. PSYCH: Cooperative. - Constitutional Vitals: Temp Pulse Resp BP Pulse Ox 98.4 F 100 H 18 140/91 95 07/25/21 12:02 07/25/21 12:02 07/25/21 12:02 07/25/21 12:02 07/25/21 12:02 General appearance: Present: mild distress HEART Score - HEART Score Troponin: Troponin T 0.105 ng/mL (0.00-0.029) H* 07/23/21 05:36 Results - Labs CBC & Chem 7: 07/24/21 07:20 07/25/21 06:40 Labs: Laboratory Last Values WBC 9.7 K/mm3 (4.5-11.0) 07/24/21 07:20 RBC 4.57 M/mm3 (3.65-5.03) 07/24/21 07:20 Hgb 15.2 gm/dl (11.8-15.2) 07/24/21 07:20 Hct 44.3 % (35.5-45.6) 07/24/21 07:20 MCV 97 fl (84-94) H 07/24/21 07:20 MCH 33 pg (28-32) H 07/24/21 07:20 MCHC 34 % (32-34) 07/24/21 07:20 RDW 12.6 % (13.2-15.2) L 07/24/21 07:20 Plt Count 188 K/mm3 (140-440) 07/24/21 07:20 Lymph % (Auto) 26.6 % (13.4-35.0) 07/22/21 17:01 [place] % (Auto) 8.1 % (0.0-7.3) H 07/22/21 17:01 Eos % (Auto) 0.9 % (0.0-4.3) 07/22/21 17:01 Baso % (Auto) 0.6 % (0.0-1.8) 07/22/21 17:01 Lymph # (Auto) 2.1 K/mm3 (1.2-5.4) 07/22/21 17:01 [place] # (Auto) 0.6 K/mm3 (0.0-0.8) 07/22/21 17:01 Eos # (Auto) 0.1 K/mm3 (0.0-0.4) 07/22/21 17:01 Baso # (Auto) 0.0 K/mm3 (0.0-0.1) 07/22/21 17:01 Seg Neutrophils % 63.8 % (40.0-70.0) 07/22/21 17:01 Seg Neutrophils # 5.0 K/mm3 (1.8-7.7) 07/22/21 17:01 Sodium 138 mmol/L (137-145) 07/24/21 07:20 Potassium 4.5 mmol/L (3.6-5.0) 07/24/21 07:20 Chloride 99.4 mmol/L (98-107) 07/24/21 07:20 Carbon Dioxide 27 mmol/L (22-30) 07/24/21 07:20 Anion Gap 16 mmol/L 07/24/21 07:20 BUN 19 mg/dL (9-20) 07/24/21 07:20 Creatinine 1.2 mg/dL (0.8-1.3) 07/25/21 06:40 Estimated GFR > 60 ml/min 07/25/21 06:40 BUN/Creatinine Ratio 14 % 07/24/21 07:20 Glucose 94 mg/dL (75-100) 07/24/21 07:20 POC Glucose 125 mg/dL (70-105) H 07/25/21 11:38 Lactic Acid 1.60 mmol/L (0.7-2.0) 07/22/21 12:53 Calcium 8.5 mg/dL (8.4-10.2) 07/24/21 07:20 Total Bilirubin 1.00 mg/dL (0.1-1.2) 07/22/21 12:53 AST 24 units/L (5-40) 07/22/21 12:53 ALT 16 units/L (7-56) 07/22/21 12:53 Alkaline Phosphatase 81 units/L (35-129) 07/22/21 12:53 Troponin T 0.105 ng/mL (0.00-0.029) H* 07/23/21 05:36 NT-Pro-B Natriuret Pep 812.1 pg/mL (0-900) 07/23/21 00:16 Total Protein 7.9 g/dL (6.3-8.2) 07/22/21 12:53 Albumin 4.4 g/dL (3.9-5) 07/22/21 12:53 Albumin/Globulin Ratio 1.3 % 07/22/21 12:53 Triglycerides 161 mg/dL (2-149) H 07/22/21 12:53 Cholesterol 234 mg/dL (50-199) H 07/22/21 12:53 LDL Cholesterol Direct 174 mg/dL (50-130) H 07/22/21 12:53 HDL Cholesterol 40 mg/dL (40-59) 07/22/21 12:53 Cholesterol/HDL Ratio 5.85 % 07/22/21 12:53 Urine Color Yellow (Yellow) 07/23/21 14:33 Urine Turbidity Clear (Clear) 07/23/21 14:33 Urine pH 5.0 (5.0-7.0) 07/23/21 14:33 Ur Specific [place] 1.013 (1.003-1.030) 07/23/21 14:33 Urine Protein <15 mg/dl mg/dL (Negative) 07/23/21 14:33 Urine Glucose (UA) Neg mg/dL (Negative) 07/23/21 14:33 Urine Ketones Neg mg/dL (Negative) 07/23/21 14:33 Urine Blood Sm (Negative) 07/23/21 14:33 Urine Nitrite Neg (Negative) 07/23/21 14:33 Urine Bilirubin Neg (Negative) 07/23/21 14:33 Urine Urobilinogen < 2.0 mg/dL (<2.0) 07/23/21 14:33 Ur Leukocyte Esterase Neg (Negative) 07/23/21 14:33 Urine WBC (Auto) 1.0 /HPF (0.0-6.0) 07/23/21 14:33 Urine RBC (Auto) 1.0 /HPF (0.0-6.0) 07/23/21 14:33 Urine Mucus 1+ /HPF 07/23/21 14:33 Coronavirus (PCR) Negative (Negative) 07/23/21 01:08 Microbiology: Microbiology 07/22/21 12:53 Peripheral/Venous Blood Culture - Preliminary NO GROWTH AFTER 48 HOURS 07/22/21 12:53 Peripheral/Venous Blood Culture - Preliminary NO GROWTH AFTER 48 HOURS Anne/IV: Voiding Method Urinal Active Medications - Current Medications Current Medications: Generic Name Dose Route Start Last Admin Trade Name Freq PRN Reason Stop Dose Admin Acetaminophen 650 mg 07/22/21 16:44 07/25/21 04:05 Acetaminophen 325 Mg Tab PO 650 mg Q4H PRN Administration Pain MILD(1-3)/Fever >100.5/SOLORZANO Albuterol 2.5 mg 07/22/21 16:44 Albuterol 2.5 Mg/3 Ml Nebu IH Q4HRT PRN Shortness Of Breath Amlodipine Besylate 5 mg 07/23/21 10:00 07/25/21 10:47 Amlodipine 5 Mg Tab PO 5 mg QDAY YOUNG Administration Aspirin 81 mg 07/23/21 10:00 07/25/21 10:46 Aspirin 81 Mg Tab Chew PO 81 mg DAILY YOUNG Administration Atorvastatin Calcium 40 mg 07/22/21 22:00 07/24/21 21:22 Atorvastatin 40 Mg Tab PO 40 mg QHS YOUNG Administration Cyclobenzaprine HCl 5 mg 07/22/21 22:00 07/24/21 21:21 Cyclobenzaprine 10 Mg Tab PO 5 mg QHS YOUNG Administration Dextrose 50 ml 07/22/21 21:32 Dextrose 50% In Water (25gm) 50 Ml Syringe IV Q30MIN PRN Hypoglycemia Protocol Enoxaparin Sodium 100 mg 07/23/21 10:00 07/25/21 10:47 Enoxaparin 100 Mg/1 Ml Inj SUB-Q 100 mg Q12H YOUNG Administration Protocol Famotidine 20 mg 07/22/21 22:00 07/25/21 10:46 Famotidine 20 Mg Tab PO 20 mg BID YOUNG Administration Guaifenesin 200 mg 07/23/21 01:14 07/24/21 23:43 Guaifenesin 100 Mg/5 Ml Oral Liqd PO 200 mg Q4H PRN Administration Cough Hydromorphone HCl 0.5 mg 07/22/21 16:44 07/22/21 20:56 Hydromorphone 1 Mg/1 Ml Inj IV 0.5 mg Q12H PRN Administration Pain , Severe (7-10) Ceftriaxone Sodium 2 gm in 100 mls @ 200 mls/hr 07/23/21 22:00 07/24/21 21:59 Rocephin/Ns 2 Gm/100 Ml IV 07/25/21 22:29 Infused Q24H YOUNG Infusion Protocol Sodium Chloride 1,000 mls @ 50 mls/hr 07/24/21 11:00 07/24/21 11:32 Nacl 0.9% 1000 Ml IV 50 mls/hr DIRECT YOUNG Administration Thiamine HCl 100 mg/ Sodium 51 mls @ 100 mls/hr 07/25/21 12:00 07/25/21 11:58 Chloride IV 07/27/21 11:59 100 mls/hr QDAY YOUNG Administration Ibuprofen 400 mg 07/22/21 21:22 Ibuprofen 400 Mg Tab PO Q8H PRN neck pain Insulin Human Lispro 0 unit 07/23/21 00:00 07/25/21 07:29 Insulin Lispro 100 Unit/Ml SUB-Q Not Given Q6HR [facility] Protocol Metoprolol Tartrate 50 mg 07/25/21 11:00 07/25/21 10:49 Metoprolol Tartrate 50 Mg Tab PO 50 mg BID YOUNG Administration Morphine Sulfate 2 mg 07/22/21 16:44 Morphine 2 Mg/1 Ml Inj IV Q6H PRN Pain, Moderate (4-6) Nitroglycerin 0.4 mg 07/22/21 16:45 Nitroglycerin 0.4 Mg Tab Subl SL .Q5MIN PRN Chest Pain Ondansetron HCl 4 mg 07/22/21 16:44 Ondansetron 4 Mg/2 Ml Inj IV Q8H PRN Nausea And Vomiting Sodium Chloride 10 ml 07/22/21 22:00 07/25/21 10:47 Sodium Chloride 0.9% 10 Ml Flush Syringe IV 10 ml BID YOUNG Administration Sodium Chloride 10 ml 07/22/21 16:44 Sodium Chloride 0.9% 10 Ml Flush Syringe IV PRN PRN LINE FLUSH Tramadol HCl 50 mg 07/22/21 21:25 Tramadol 50 Mg Tab PO Q6H PRN Pain, Moderate (4-6)
[2021-07-25 12:52] LABS: Alanine Aminotransferase 12 units/L (7-56); Albumin 3.9 g/dL (3.9-5); BUN/Creatinine Ratio 13; Blood Urea Nitrogen 14 mg/dL (9-20); Calcium 8.4 mg/dL (8.4-10.2); Hemolysis Index 171
--- NOTE | 2021-07-25 13:28 | XRay Report ---
CHEST 1 VIEW 07/25/2021 12:21 PM INDICATION / CLINICAL INFORMATION: evaluate for PNA. COMPARISON: 07/22/2021 FINDINGS: SUPPORT DEVICES: None. HEART / MEDIASTINUM: No significant abnormality. LUNGS / PLEURA: No significant pulmonary or pleural abnormality. No pneumothorax. ADDITIONAL FINDINGS: No significant additional findings. IMPRESSION: 1. No acute findings. Signer Name: Andriy North MD Signed: 07/25/2021 1:24 PM Workstation Name: [id number]
[2021-07-25] MEDS: SODIUM CHLORIDE 0.9% 1000 ML 1,000 ML IV SCH (16:21)
[2021-07-25] MEDS: guaiFENesin 100 MG/5 ML ORAL LIQD PO PRN ×2 (16:38→20:54)
[2021-07-25] MEDS: CYCLOBENZAPRINE 10 MG TAB PO SCH (21:00)
[2021-07-25] MEDS: cefTRIAXone/NS 2 GM/100 ML 2 GM/100 ML BAG IV SCH (21:00)
[2021-07-26] MEDS: ENOXAPARIN 100 MG/1 ML INJ SUB-Q SCH (06:02)
[2021-07-26] MEDS: INSULIN LISPRO 100 UNIT/ML SUB-Q SCH ×4 (06:03→17:56)
[2021-07-26] MEDS ORDERED: REGADENOSON 0.4 MG/5 ML INJ IV ONE (08:29)
[2021-07-26 08:48] LABS: Hematocrit 40.7 % (35.5-45.6); Mean Corpuscular HGB Conc 34 % (32-34); Mean Corpuscular Volume 96 fl (84-94); Platelet Count 203 K/mm3 (140-440); Red Blood Count 4.23 M/mm3 (3.65-5.03); Red Cell Distribution Width 12.7 % (13.2-15.2)
--- NOTE | 2021-07-26 13:24 | Electrocardiograph Report ---
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
--- NOTE | 2021-07-26 13:30 | Electrocardiograph Report ---
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
--- NOTE | 2021-07-26 14:44 | Progress Note ---
Assessment and Plan Patient is a 71-year-old male who reports a past medical history of paroxysmal A. fib and history of DVT who presented to the ED with complaint of sudden onset of weakness which occurred yesterday morning. NSTEMI Double vision-neurology following Weakness Hypertension Paroxysmal A. fib History of DVTs Hyperlipidemia Echo 07/22/2021-EF 55 to 60% transmitral Doppler flow (impaired relaxation. Mild to moderate tricuspid regurgitation. Moderate pulmonary hypertension Preliminary results of Lexiscan MPI stress test 07/26/2021-negative for signs of ischemia Plan: Patient had negative stress test this a.m. Patient remains chest pain-free BNP noted to be negative, chest x-ray negative, patient appears euvolemic on exam, and patient denies any complaints of shortness of breath or difficulty breathing. Patient is not clinically in heart failure Patient reports history of paroxysmal A. fib and DVTs however reports not being on anticoagulation because he does not like the effects. And reports taking garlic Patient currently on aspirin and Lipitor, amlodipine, eliquis,metoprolol Cardiac status otherwise stable. Will see as needed Patient should follow with her primary traffic reporter or as an alternative patient may follow-up with Dr. Agustin, [facility] customer resolution specialist, in 1 to 2 weeks after discharge. Phone #[phone] Patient seen in conjunction with Dr. Dougherty who agrees with this plan of care - Patient Problems (1) H/O deep venous thrombosis Current Visit: Yes Status: Acute (2) Hypertension Current Visit: Yes Status: Acute Qualifiers: Hypertension type: primary hypertension Qualified Code(s): I10 - Essential (primary) hypertension (3) NSTEMI (non-ST elevated myocardial infarction) Current Visit: Yes Status: Acute (4) Insulin dependent diabetes mellitus Current Visit: No Status: Acute (5) PAF (paroxysmal atrial fibrillation) Current Visit: No Status: Chronic Subjective Date of service: 07/26/21 Principal diagnosis: SOB/Dizziness/diplopia Interval history: Patient with stress test this a.m. Sinus to sinus tach 90s to 100s Objective Vital Signs Temp Pulse Pulse Resp BP BP Pulse Ox 07/26/21 10:00 11 L 98 07/26/21 09:01 93 07/26/21 08:28 99.2 F 102 H 17 130/79 94 07/26/21 04:21 99.0 F 101 H 18 126/79 91 07/26/21 04:00 101 H 07/26/21 00:00 98.8 F 87 16 132/74 07/25/21 22:25 97 07/25/21 22:00 11 L 98 07/25/21 21:56 101.4 F H 106 H 18 131/77 89 07/25/21 21:00 117 H 07/25/21 16:12 98.5 F 75 20 123/62 91 07/25/21 16:06 104 H 115/71 94 07/25/21 16:00 93 H 97 - Physical Examination General: No Apparent Distress HEENT: Positive: PERRL Neck: Positive: trachea midline Cardiac: Positive: Reg Rate and Rhythm Lungs: Positive: Normal Breath Sounds Neuro: Positive: Grossly Intact Abdomen: Positive: Soft, Active Bowel Sounds Skin: Negative: Rash, Suspicious Lesions, Ulceration Extremities: Present: upper extr. pulses. Absent: edema - Labs and Meds CBC 07/26/21 Range/Units 08:12 WBC 10.6 (4.5-11.0) K/mm3 RBC 4.23 (3.65-5.03) M/mm3 Hgb 14.0 (11.8-15.2) gm/dl Hct 40.7 (35.5-45.6) % Plt Count 203 (140-440) K/mm3 - Imaging and Cardiology EKG: report reviewed, image reviewed Echo: report reviewed - Telemetry EKG Rhythm: Sinus Rhythm - EKG Sinus rhythms and dysrhythmias: sinus rhythm Ventricular dysrhythmias: ventricular escape comple
[2021-07-26] MEDS: THIAMINE 100 MG in SODIUM CHLORIDE 0.9% 50 ML IV SCH (16:23)
[2021-07-26] MEDS: FAMOTIDINE 20 MG TAB PO SCH ×2 (16:24→21:37)
[2021-07-26] MEDS: METOPROLOL TARTRATE 50 MG TAB PO SCH ×2 (16:24→21:37)
[2021-07-26] MEDS: ASPIRIN 81 MG TAB CHEW PO SCH (16:24)
[2021-07-26] MEDS: APIXABAN 5 MG TAB PO SCH ×2 (16:24→21:37)
[2021-07-26] MEDS: amLODIPine 5 MG TAB PO SCH (16:24)
--- NOTE | 2021-07-26 16:51 | Progress Note ---
Assessment and Plan Assessment and plan: #Near syncope -CT head negative for acute process -patient reports feeling lightheadedness and dizziness while ambulating prior to coming to ED -questionable diplopia -MRI brain pending to rule out CN palsy -Neurology consulted, assistance appreciated #PAF (paroxysmal atrial fibrillation) -not on AC at home -continue metoprolol while inpatient -discussed increased risk of stroke to patient, will continue apixaban outpatient -telemetry #NSTEMI (non-ST elevated myocardial infarction) -Troponin peak 0.121 -Echocardiogram: LVEF 55 to 60%, mild to moderate tricuspid regurg and moderate pulmonary hypertension -stress test today negative -cardiology following, assistance appreciated #Fever -Blood cultures collected 07/23 no growth to date x72 hours; will reorder -Patient with T-max of 101.4 overnight -not convinced of infection at this time and will not start antibiotics -COVID-19 PCR negative, CXR negative for acute process, UA unremarkable -No source or cause of fever at this time -discussed with patient and , they are adimant about having an infection, will order CT of chest/abd/pelvis #Diastolic CHF -not in acute exacerbation -strict I/O, monitor urine output every shift, daily weight #Type II Diabetes -continue carbohydrate diet -A1C5.5% -continue SSI while inpatient #Hypertension -continue BP medications -will continue to monitor #Vascular dementia #Cerebral atherosclerosis -Antiplatelet therapy as clinically indicated, supportive care. Risk factor reduction. #Advanced care planning -Disease education, care plan, diagnosis, prognosis discussed with patient and . They understand and acknowledges current plan. -Time: +30 minutes History Interval history: Patient continues to have night time cough and had a tmax of 101.4. Has no other constitutional symptoms besides cough. Patient on the way to stress test. Hospitalist Physical - Physical exam Narrative exam: GENERAL: Well-developed well-nourished. In no acute distress. HEENT: 3 L nasal cannula. CHEST/LUNGS: Coarse breath sounds bilaterally. HEART/CARDIOVASCULAR: Irregular irregular rhythm. No murmur, rubs or gallops appreciated. ABDOMEN: +BS. NT/ND. NEURO: No focal motor deficit. Follows all commands. EXTREMITIES: No cyanosis, clubbing or edema. PSYCH: Cooperative. - Constitutional Vitals: Temp Pulse Resp BP Pulse Ox 99.2 F 11 L 17 131/84 98 07/26/21 08:28 07/26/21 10:00 07/26/21 08:28 07/26/21 11:30 07/26/21 10:00 General appearance: Present: mild distress HEART Score - HEART Score Troponin: Troponin T 0.105 ng/mL (0.00-0.029) H* 07/23/21 05:36 Results - Labs CBC & Chem 7: 07/26/21 08:12 07/25/21 11:25 Labs: Laboratory Last Values WBC 10.6 K/mm3 (4.5-11.0) 07/26/21 08:12 RBC 4.23 M/mm3 (3.65-5.03) 07/26/21 08:12 Hgb 14.0 gm/dl (11.8-15.2) 07/26/21 08:12 Hct 40.7 % (35.5-45.6) 07/26/21 08:12 MCV 96 fl (84-94) H 07/26/21 08:12 MCH 33 pg (28-32) H 07/26/21 08:12 MCHC 34 % (32-34) 07/26/21 08:12 RDW 12.7 % (13.2-15.2) L 07/26/21 08:12 Plt Count 203 K/mm3 (140-440) 07/26/21 08:12 Lymph % (Auto) 26.6 % (13.4-35.0) 07/22/21 17:01 [place] % (Auto) 8.1 % (0.0-7.3) H 07/22/21 17:01 Eos % (Auto) 0.9 % (0.0-4.3) 07/22/21 17:01 Baso % (Auto) 0.6 % (0.0-1.8) 07/22/21 17:01 Lymph # (Auto) 2.1 K/mm3 (1.2-5.4) 07/22/21 17:01 [place] # (Auto) 0.6 K/mm3 (0.0-0.8) 07/22/21 17:01 Eos # (Auto) 0.1 K/mm3 (0.0-0.4) 07/22/21 17:01 Baso # (Auto) 0.0 K/mm3 (0.0-0.1) 07/22/21 17:01 Seg Neutrophils % 63.8 % (40.0-70.0) 07/22/21 17:01 Seg Neutrophils # 5.0 K/mm3 (1.8-7.7) 07/22/21 17:01 Sodium 138 mmol/L (137-145) 07/25/21 11:25 Potassium 4.5 mmol/L (3.6-5.0) 07/25/21 11:25 Chloride 102.2 mmol/L (98-107) 07/25/21 11:25 Carbon Dioxide 23 mmol/L (22-30) 07/25/21 11:25 Anion Gap 17 mmol/L 07/25/21 11:25 BUN 14 mg/dL (9-20) 07/25/21 11:25 Creatinine 1.1 mg/dL (0.8-1.3) 07/25/21 11:25 Estimated GFR > 60 ml/min 07/25/21 11:25 BUN/Creatinine Ratio 13 % 07/25/21 11:25 Glucose 120 mg/dL (75-100) H 07/25/21 11:25 POC Glucose 105 mg/dL (70-105) 07/26/21 16:17 Hemoglobin A1c 5.5 % (4-6) 07/25/21 11:25 Lactic Acid 1.60 mmol/L (0.7-2.0) 07/22/21 12:53 Calcium 8.4 mg/dL (8.4-10.2) 07/25/21 11:25 Total Bilirubin 0.90 mg/dL (0.1-1.2) 07/25/21 11:25 AST 32 units/L (5-40) 07/25/21 11:25 ALT 12 units/L (7-56) 07/25/21 11:25 Alkaline Phosphatase 66 units/L (35-129) 07/25/21 11:25 Troponin T 0.105 ng/mL (0.00-0.029) H* 07/23/21 05:36 NT-Pro-B Natriuret Pep 812.1 pg/mL (0-900) 07/23/21 00:16 Total Protein 7.5 g/dL (6.3-8.2) 07/25/21 11:25 Albumin 3.9 g/dL (3.9-5) 07/25/21 11:25 Albumin/Globulin Ratio 1.1 % 07/25/21 11:25 Triglycerides 161 mg/dL (2-149) H 07/22/21 12:53 Cholesterol 234 mg/dL (50-199) H 07/22/21 12:53 LDL Cholesterol Direct 174 mg/dL (50-130) H 07/22/21 12:53 HDL Cholesterol 40 mg/dL (40-59) 07/22/21 12:53 Cholesterol/HDL Ratio 5.85 % 07/22/21 12:53 Vitamin B12 348.5 pg/mL (211-911) 07/25/21 11:25 TSH 3.420 mlU/mL (0.270-4.200) 07/25/21 11:25 Urine Color Yellow (Yellow) 07/23/21 14:33 Urine Turbidity Clear (Clear) 07/23/21 14:33 Urine pH 5.0 (5.0-7.0) 07/23/21 14:33 Ur Specific [place] 1.013 (1.003-1.030) 07/23/21 14:33 Urine Protein <15 mg/dl mg/dL (Negative) 07/23/21 14:33 Urine Glucose (UA) Neg mg/dL (Negative) 07/23/21 14:33 Urine Ketones Neg mg/dL (Negative) 07/23/21 14:33 Urine Blood Sm (Negative) 07/23/21 14:33 Urine Nitrite Neg (Negative) 07/23/21 14:33 Urine Bilirubin Neg (Negative) 07/23/21 14:33 Urine Urobilinogen < 2.0 mg/dL (<2.0) 07/23/21 14:33 Ur Leukocyte Esterase Neg (Negative) 07/23/21 14:33 Urine WBC (Auto) 1.0 /HPF (0.0-6.0) 07/23/21 14:33 Urine RBC (Auto) 1.0 /HPF (0.0-6.0) 07/23/21 14:33 Urine Mucus 1+ /HPF 07/23/21 14:33 Coronavirus (PCR) Negative (Negative) 07/23/21 01:08 Microbiology: Microbiology 07/22/21 12:53 Peripheral/Venous Blood Culture - Preliminary NO GROWTH AFTER 4 DAYS 07/22/21 12:53 Peripheral/Venous Blood Culture - Preliminary NO GROWTH AFTER 4 DAYS Anne/IV: Voiding Method Urinal Active Medications - Current Medications Current Medications: Generic Name Dose Route Start Last Admin Trade Name Freq PRN Reason Stop Dose Admin Acetaminophen 650 mg 07/22/21 16:44 07/25/21 20:54 Acetaminophen 325 Mg Tab PO 650 mg Q4H PRN Administration Pain MILD(1-3)/Fever >100.5/SOLORZANO Albuterol 2.5 mg 07/22/21 16:44 Albuterol 2.5 Mg/3 Ml Nebu IH Q4HRT PRN Shortness Of Breath Amlodipine Besylate 5 mg 07/23/21 10:00 07/26/21 16:24 Amlodipine 5 Mg Tab PO 5 mg QDAY YOUNG Administration Apixaban 5 mg 07/26/21 10:00 07/26/21 16:24 Apixaban 5 Mg Tab PO 5 mg Q12HR YOUNG Administration Protocol Aspirin 81 mg 07/23/21 10:00 07/26/21 16:24 Aspirin 81 Mg Tab Chew PO 81 mg DAILY YOUNG Administration Atorvastatin Calcium 40 mg 07/22/21 22:00 07/25/21 21:00 Atorvastatin 40 Mg Tab PO 40 mg QHS YOUNG Administration Cyclobenzaprine HCl 5 mg 07/22/21 22:00 07/25/21 21:00 Cyclobenzaprine 10 Mg Tab PO 5 mg QHS YOUNG Administration Dextrose 50 ml 07/22/21 21:32 Dextrose 50% In Water (25gm) 50 Ml Syringe IV Q30MIN PRN Hypoglycemia Protocol Famotidine 20 mg 07/22/21 22:00 07/26/21 16:24 Famotidine 20 Mg Tab PO 20 mg BID YOUNG Administration Guaifenesin 200 mg 07/23/21 01:14 07/25/21 20:54 Guaifenesin 100 Mg/5 Ml Oral Liqd PO 200 mg Q4H PRN Administration Cough Hydromorphone HCl 0.5 mg 07/22/21 16:44 07/22/21 20:56 Hydromorphone 1 Mg/1 Ml Inj IV 0.5 mg Q12H PRN Administration Pain , Severe (7-10) Sodium Chloride 1,000 mls @ 50 mls/hr 07/24/21 11:00 07/25/21 16:21 Nacl 0.9% 1000 Ml IV 50 mls/hr DIRECT YOUNG Administration Thiamine HCl 100 mg/ Sodium 51 mls @ 100 mls/hr 07/25/21 12:00 07/26/21 16:23 Chloride IV 07/27/21 11:59 100 mls/hr QDAY YOUNG Administration Ibuprofen 400 mg 07/22/21 21:22 Ibuprofen 400 Mg Tab PO Q8H PRN neck pain Insulin Human Lispro 0 unit 07/23/21 00:00 07/26/21 14:27 Insulin Lispro 100 Unit/Ml SUB-Q Not Given Q6HR [facility] Protocol Metoprolol Tartrate 50 mg 07/25/21 11:00 07/26/21 16:24 Metoprolol Tartrate 50 Mg Tab PO 50 mg BID YOUNG Administration Morphine Sulfate 2 mg 07/22/21 16:44 Morphine 2 Mg/1 Ml Inj IV Q6H PRN Pain, Moderate (4-6) Nitroglycerin 0.4 mg 07/22/21 16:45 Nitroglycerin 0.4 Mg Tab Subl SL .Q5MIN PRN Chest Pain Ondansetron HCl 4 mg 07/22/21 16:44 Ondansetron 4 Mg/2 Ml Inj IV Q8H PRN Nausea And Vomiting Sodium Chloride 10 ml 07/22/21 22:00 07/26/21 16:24 Sodium Chloride 0.9% 10 Ml Flush Syringe IV 10 ml BID YOUNG Administration Sodium Chloride 10 ml 07/22/21 16:44 Sodium Chloride 0.9% 10 Ml Flush Syringe IV PRN PRN LINE FLUSH Tramadol HCl 50 mg 07/22/21 21:25 Tramadol 50 Mg Tab PO Q6H PRN Pain, Moderate (4-6)
--- NOTE | 2021-07-26 17:20 | Magnetic Resonance Report ---
MRI BRAIN WITHOUT CONTRAST INDICATION / CLINICAL INFORMATION: CVA. TECHNIQUE: Multiplanar, multisequence MR images of the brain were obtained. COMPARISON: None available. FINDINGS: BRAIN / INTRACRANIAL CONTENTS: Age-related parenchymal volume loss is demonstrated. Dilatation of the cortical sulci and ventricular system is noted in keeping with the patient's stated age of 71. Exten sive periventricular, deep white matter and subcortical white matter hyperintensities are noted consi stent with advanced microvascular ischemic changes. There is no mass effect. No evidence of intracran ial hemorrhage or extra-axial fluid collection is seen. There is no indication of remote cortical inf arction. Diffusion weighted scans are negative. There is no indication of acute ischemic injury. The brainstem and cerebellum have an unremarkable appearance. CRANIOCERVICAL JUNCTION: No abnormalities are identified at the craniocervical junction. VASCULAR FLOW-VOIDS: Normal flow-voids are present within the major intracranial vessels. ORBITS: The orbits have an unremarkable appearance. SINUSES / MASTOIDS: There is no indication of inflammatory disease in the paranasal sinuses or mastoi d air cells. IMPRESSION: 1. Advanced microvascular ischemic change. 2. Diffusion weighted scans are negative with no indication of recent ischemic injury. Signer Name: Jordan Leija MD Signed: 07/26/2021 5:15 PM Workstation Name: [id number]
[2021-07-26] MEDS: guaiFENesin 100 MG/5 ML ORAL LIQD PO PRN (18:10)
[2021-07-26] MEDS: ACETAMINOPHEN 325 MG TAB PO PRN (20:40)
[2021-07-26] MEDS: CYCLOBENZAPRINE 10 MG TAB PO SCH (21:37)
[2021-07-27] MEDS: guaiFENesin 100 MG/5 ML ORAL LIQD PO PRN ×3 (00:05→20:46)
--- NOTE | 2021-07-27 01:45 | Treadmill Report ---
DATE OF SERVICE: 07/26/2021 NUCLEAR STRESS TEST. PROTOCOL: The patient was assessed in postoperative state, given 10 mCi of technetium at rest. The patient had rest imaging. The patient underwent Lexiscan stress test per standard protocol. At peak stress, the patient was given 26 mCi technetium shortly thereafter stress imaging. Raw imaging reveals mild GI artifact, no significant motion artifact. SPECT imaging examined carefully in horizontal long axis, vertical long axis, short axis views. There was normal mitral uptake of radioisotope in all port segments. No evidence of significant fixed or reversible perfusion defect suggestive of prior infarction or ischemia. Gated wall motion reveals normal systolic thickening, calculated ejection fraction of 55%. No TID. CONCLUSIONS: 1. Normal myocardial perfusion scan without evidence of active ischemia or prior infarction. 2. Normal left ventricular systolic performance without evidence of transient ischemic dilatation or stress-induced segmental wall motion analysis. TID: [id number] RECEIPT: [id number] KASIE/ALDAIR
[2021-07-27] MEDS: INSULIN LISPRO 100 UNIT/ML SUB-Q SCH ×4 (04:28→17:51)
[2021-07-27 05:59] LABS: Hematocrit 41.5 % (35.5-45.6); Hemoglobin 13.9 gm/dl (11.8-15.2); Mean Corpuscular HGB Conc 34 % (32-34); Mean Corpuscular Volume 97 fl (84-94); Platelet Count 190 K/mm3 (140-440); Red Blood Count 4.28 M/mm3 (3.65-5.03); Red Cell Distribution Width 12.5 % (13.2-15.2)
[2021-07-27 06:18] LABS: BUN/Creatinine Ratio 13; Blood Urea Nitrogen 17 mg/dL (9-20); Calcium 7.9 mg/dL (8.4-10.2); Hemolysis Index 7
[2021-07-27] MEDS: APIXABAN 5 MG TAB PO SCH (09:00)
[2021-07-27] MEDS: THIAMINE 100 MG in SODIUM CHLORIDE 0.9% 50 ML IV SCH (09:10)
--- NOTE | 2021-07-27 09:46 | Cat Scan Report ---
CT CHEST, ABDOMEN, AND PELVIS WITH CONTRAST INDICATION / CLINICAL INFORMATION: Evaluate for possible infection. TECHNIQUE: Axial CT images were obtained through the chest, abdomen, and pelvis after 100 cc Omnipaqu e [address] scans at this location are performed using CT dose reduction for KEN barraza of automated exposure control. COMPARISON: One view of the chest performed on 07/25/2021. CTA abdomen and pelvis performed on 01/15/20. FINDINGS: HEART: The right ventricle is slightly larger than the left, suggesting right heart strain. No other significant abnormality. CORONARY ARTERY CALCIFICATION: Present -- Mild. THORACIC AORTA: No acute findings. Mild calcification is seen at the level of the aortic valve. MEDIASTINUM / COMFORT: No significant abnormality. PLEURA: No pleural effusion. No pneumothorax. LUNGS: Peripheral ground glass opacities are seen along the left upper lobe. Ground glass opacities a re also noted to a lesser extent along the right lung apex. The lungs are otherwise clear. ADDITIONAL CHEST FINDINGS: There is a very large amount of pulmonary emboli including a nonocclusive saddle embolus. Emboli extend along the right and left main pulmonary arteries into multiple bilatera l segmental and subsegmental branches. LIVER: No significant abnormality. GALLBLADDER: No significant abnormality. BILE DUCTS: No significant abnormality. PANCREAS: No significant abnormality. SPLEEN: No significant abnormality. ADRENALS: No significant abnormality. RIGHT KIDNEY / URETER: No significant abnormality. LEFT KIDNEY / URETER: A simple upper pole cyst measures up to 1.8 cm. No other significant abnormalit y. STOMACH and SMALL BOWEL: No significant abnormality. COLON: There is generalized noninflamed diverticulosis. No other significant abnormality. APPENDIX: No significant abnormality. PERITONEUM: No free fluid. No free air. No fluid collection. LYMPH NODES: No significant adenopathy. AORTA / ARTERIES: No significant abnormality. IVC / VEINS: No significant abnormality. URINARY BLADDER: No significant abnormality. REPRODUCTIVE ORGANS: No significant abnormality. ADDITIONAL FINDINGS: None. SKELETAL SYSTEM: No significant abnormality. IMPRESSION: 1. Very large amount of pulmonary emboli including a saddle embolus with possible associated right he art strain. Please correlate with cardiac enzymes. 2. Possible evolving bilateral upper lobe pulmonary infarcts versus pneumonia. 3. No acute findings in the abdomen or pelvis. I initially attempted to report the critical findings of PE to the patient's nurse on the 4A unit. Ben berry, she directed me to Dr. Diggs's cell phone to communicate the critical finding. I left a voic email with Dr. Diggs and then called the 4A unit back to relay this finding to Fina, the charge nurse at 08:40 SPRAY MACHINE TENDER. Signer Name: Sven Burden MD Signed: 07/27/2021 9:42 AM Workstation Name: [id number]
[2021-07-27] MEDS ORDERED: HEPARIN 10,000 UNITS/10 ML VIAL IV NR ×2 (10:00)
[2021-07-27 10:56] LABS: INR 1.3 (0.87-1.13)
[2021-07-27] MEDS: FAMOTIDINE 20 MG TAB PO SCH ×2 (10:56→21:24)
[2021-07-27 10:57] LABS: Partial Thromboplastin Time 34.9 Sec. (24.2-36.6)
[2021-07-27] MEDS: METOPROLOL TARTRATE 50 MG TAB PO SCH ×2 (10:57→21:24)
[2021-07-27] MEDS: amLODIPine 5 MG TAB PO SCH (10:57)
[2021-07-27] MEDS: ASPIRIN 81 MG TAB CHEW PO SCH (10:57)
[2021-07-27] MEDS: HEPARIN/ 0.45% NACL DRIP 25,000 UNIT/500 ML BAG IV SCH (11:08)
--- NOTE | 2021-07-27 16:57 | Progress Note ---
Assessment and Plan Assessment and plan: #Newly diagnosed saddle pulmonary embolism (unprovoked) Patient denies immobilization, hormone therapy, surgery, long travel, tobacco dependence. However, patient endorses having unprovoked DVT >20 years ago that required 6 months of Coumadin treatment. Revealed on CT chest Discontinued apixaban 5 mg twice daily and started heparin drip. Low clinical suspicion for RV strain due to the patient recently having nuclear stress test that did not reveal this. Vascular surgery consulted for possible mechanical thrombectomy; pending recs #Near syncope -CT head negative for acute process; MRI brain unremarkable -patient reports feeling lightheadedness and dizziness while ambulating prior to coming to ED -Neurology consulted, assistance appreciated #PAF (paroxysmal atrial fibrillation) -not on AC at home -continue metoprolol tartrate 50mg bid and telemetry while inpatient -discussed increased risk of stroke to patient. Will likely initiate Eliquis 5 mg twice daily upon discharge. #NSTEMI (non-ST elevated myocardial infarction) -Troponin peak 0.121 -Echocardiogram: LVEF 55 to 60%, mild to moderate tricuspid regurg and moderate pulmonary hypertension -Cardiology following, appreciate recs Nuclear stress test unremarkable for ischemia #Fever -Believed to be secondary to newly diagnosed saddle pulmonary embolism -Blood cultures collected 07/23 no growth to date x72 hours; will reorder -not convinced of infection at this time and will not start antibiotics -COVID-19 PCR negative, CXR negative for acute process, UA unremarkable -discussed with patient and , they are adimant about having an infection, will order CT of chest/abd/pelvis #Diastolic CHF -not in acute exacerbation -strict I/O, monitor urine output every shift, daily weight #Non-insulin dependent type II diabetes mellitus - hemoglobin A1c: 5.5 - home regimen: None/diet controlled - current regimen: SSI - blood glucose goal 140-180 while inpatient - continue to monitor #Hypertension #Hyperlipidemia - home medications: Amlodipine 5 mg daily - current medications: Amlodipine 5 mg daily and atorvastatin 40 mg daily - SBP goal <160 and DBP goal <90 while inpatient - continue to monitor #Vascular dementia #Cerebral atherosclerosis -Antiplatelet therapy as clinically indicated, supportive care. Risk factor reduction. #Advanced care planning -Disease education, care plan, diagnosis, prognosis discussed with patient and . They understand and acknowledges current plan. -Time: +30 minutes Disposition Plan: Continue medical management Total Time Spent with Patient (Minutes): 45 minutes History Interval history: No acute events overnight. Hospitalist Physical - Constitutional Vitals: Temp Pulse Resp BP Pulse Ox 98.2 F 97 H 18 139/89 93 07/27/21 15:57 07/27/21 15:57 07/27/21 15:57 07/27/21 15:57 07/27/21 15:57 General appearance: Present: no acute distress, well-nourished, obese - EENT Eyes: Present: PERRL, EOM intact ENT: hearing intact, clear oral mucosa, dentition normal - Neck Neck: Present: supple, normal ROM - Respiratory Respiratory effort: normal - Cardiovascular Rhythm: regular Heart Sounds: Present: S1 & S2 - Extremities Extremities: no ischemia, pulses intact, pulses symmetrical, No edema, normal temperature, normal color, Full ROM Peripheral Pulses: within normal limits - Abdominal General gastrointestinal: soft, non-tender, non-distended, normal bowel sounds - Integumentary Integumentary: Present: clear, warm, dry - Psychiatric Psychiatric: appropriate mood/affect, intact judgment & insight, memory intact, cooperative - Neurologic Neurologic: CNII-XII intact, moves all extremities - Allied Health Allied health notes reviewed: nursing HEART Score - HEART Score Troponin: Troponin T 0.105 ng/mL (0.00-0.029) H* 07/23/21 05:36 Results - Labs CBC & Chem 7: 07/27/21 05:35 07/27/21 05:35 Labs: Laboratory Last Values WBC 10.7 K/mm3 (4.5-11.0) 07/27/21 05:35 RBC 4.28 M/mm3 (3.65-5.03) 07/27/21 05:35 Hgb 13.9 gm/dl (11.8-15.2) 07/27/21 05:35 Hct 41.5 % (35.5-45.6) 07/27/21 05:35 MCV 97 fl (84-94) H 07/27/21 05:35 MCH 33 pg (28-32) H 07/27/21 05:35 MCHC 34 % (32-34) 07/27/21 05:35 RDW 12.5 % (13.2-15.2) L 07/27/21 05:35 Plt Count 190 K/mm3 (140-440) 07/27/21 05:35 Lymph % (Auto) 26.6 % (13.4-35.0) 07/22/21 17:01 [place] % (Auto) 8.1 % (0.0-7.3) H 07/22/21 17:01 Eos % (Auto) 0.9 % (0.0-4.3) 07/22/21 17:01 Baso % (Auto) 0.6 % (0.0-1.8) 07/22/21 17:01 Lymph # (Auto) 2.1 K/mm3 (1.2-5.4) 07/22/21 17:01 [place] # (Auto) 0.6 K/mm3 (0.0-0.8) 07/22/21 17:01 Eos # (Auto) 0.1 K/mm3 (0.0-0.4) 07/22/21 17:01 Baso # (Auto) 0.0 K/mm3 (0.0-0.1) 07/22/21 17:01 Seg Neutrophils % 63.8 % (40.0-70.0) 07/22/21 17:01 Seg Neutrophils # 5.0 K/mm3 (1.8-7.7) 07/22/21 17:01 PT 17.7 Sec. (12.2-14.9) H 07/27/21 10:32 INR 1.30 (0.87-1.13) H 07/27/21 10:32 APTT 34.9 Sec. (24.2-36.6) 07/27/21 10:32 Sodium 139 mmol/L (137-145) 07/27/21 05:35 Potassium 4.4 mmol/L (3.6-5.0) 07/27/21 05:35 Chloride 101.3 mmol/L (98-107) 07/27/21 05:35 Carbon Dioxide 26 mmol/L (22-30) 07/27/21 05:35 Anion Gap 16 mmol/L 07/27/21 05:35 BUN 17 mg/dL (9-20) 07/27/21 05:35 Creatinine 1.3 mg/dL (0.8-1.3) 07/27/21 05:35 Estimated GFR > 60 ml/min 07/27/21 05:35 BUN/Creatinine Ratio 13 % 07/27/21 05:35 Glucose 103 mg/dL (75-100) H 07/27/21 05:35 POC Glucose 92 mg/dL (70-105) 07/27/21 15:56 Hemoglobin A1c 5.5 % (4-6) 07/25/21 11:25 Lactic Acid 1.60 mmol/L (0.7-2.0) 07/22/21 12:53 Calcium 7.9 mg/dL (8.4-10.2) L 07/27/21 05:35 Total Bilirubin 0.90 mg/dL (0.1-1.2) 07/25/21 11:25 AST 32 units/L (5-40) 07/25/21 11:25 ALT 12 units/L (7-56) 07/25/21 11:25 Alkaline Phosphatase 66 units/L (35-129) 07/25/21 11:25 Troponin T 0.105 ng/mL (0.00-0.029) H* 07/23/21 05:36 NT-Pro-B Natriuret Pep 812.1 pg/mL (0-900) 07/23/21 00:16 Total Protein 7.5 g/dL (6.3-8.2) 07/25/21 11:25 Albumin 3.9 g/dL (3.9-5) 07/25/21 11:25 Albumin/Globulin Ratio 1.1 % 07/25/21 11:25 Triglycerides 161 mg/dL (2-149) H 07/22/21 12:53 Cholesterol 234 mg/dL (50-199) H 07/22/21 12:53 LDL Cholesterol Direct 174 mg/dL (50-130) H 07/22/21 12:53 HDL Cholesterol 40 mg/dL (40-59) 07/22/21 12:53 Cholesterol/HDL Ratio 5.85 % 07/22/21 12:53 Vitamin B12 348.5 pg/mL (211-911) 07/25/21 11:25 TSH 3.420 mlU/mL (0.270-4.200) 07/25/21 11:25 Urine Color Yellow (Yellow) 07/23/21 14:33 Urine Turbidity Clear (Clear) 07/23/21 14:33 Urine pH 5.0 (5.0-7.0) 07/23/21 14:33 Ur Specific [place] 1.013 (1.003-1.030) 07/23/21 14:33 Urine Protein <15 mg/dl mg/dL (Negative) 07/23/21 14:33 Urine Glucose (UA) Neg mg/dL (Negative) 07/23/21 14:33 Urine Ketones Neg mg/dL (Negative) 07/23/21 14:33 Urine Blood Sm (Negative) 07/23/21 14:33 Urine Nitrite Neg (Negative) 07/23/21 14:33 Urine Bilirubin Neg (Negative) 07/23/21 14:33 Urine Urobilinogen < 2.0 mg/dL (<2.0) 07/23/21 14:33 Ur Leukocyte Esterase Neg (Negative) 07/23/21 14:33 Urine WBC (Auto) 1.0 /HPF (0.0-6.0) 07/23/21 14:33 Urine RBC (Auto) 1.0 /HPF (0.0-6.0) 07/23/21 14:33 Urine Mucus 1+ /HPF 07/23/21 14:33 Coronavirus (PCR) Negative (Negative) 07/23/21 01:08 Microbiology: Microbiology 07/22/21 12:53 Peripheral/Venous Blood Culture - Final NO GROWTH AFTER 5 DAYS 07/22/21 12:53 Peripheral/Venous Blood Culture - Final NO GROWTH AFTER 5 DAYS Anne/IV: Voiding Method Urinal Active Medications - Current Medications Current Medications: Generic Name Dose Route Start Last Admin Trade Name Freq PRN Reason Stop Dose Admin Acetaminophen 650 mg 07/22/21 16:44 07/26/21 20:40 Acetaminophen 325 Mg Tab PO 650 mg Q4H PRN Administration Pain MILD(1-3)/Fever >100.5/SOLORZANO Albuterol 2.5 mg 07/22/21 16:44 Albuterol 2.5 Mg/3 Ml Nebu IH Q4HRT PRN Shortness Of Breath Amlodipine Besylate 5 mg 07/23/21 10:00 07/27/21 10:57 Amlodipine 5 Mg Tab PO 5 mg QDAY YOUNG Administration Aspirin 81 mg 07/23/21 10:00 07/27/21 10:57 Aspirin 81 Mg Tab Chew PO 81 mg DAILY YOUNG Administration Atorvastatin Calcium 40 mg 07/22/21 22:00 07/26/21 21:38 Atorvastatin 40 Mg Tab PO 40 mg QHS YOUNG Administration Cyclobenzaprine HCl 5 mg 07/22/21 22:00 07/26/21 21:37 Cyclobenzaprine 10 Mg Tab PO 5 mg QHS YOUNG Administration Dextrose 50 ml 07/22/21 21:32 Dextrose 50% In Water (25gm) 50 Ml Syringe IV Q30MIN PRN Hypoglycemia Protocol Famotidine 20 mg 07/22/21 22:00 07/27/21 10:56 Famotidine 20 Mg Tab PO 20 mg BID YOUNG Administration Guaifenesin 200 mg 07/23/21 01:14 07/27/21 07:59 Guaifenesin 100 Mg/5 Ml Oral Liqd PO 200 mg Q4H PRN Administration Cough Hydromorphone HCl 0.5 mg 07/22/21 16:44 07/22/21 20:56 Hydromorphone 1 Mg/1 Ml Inj IV 0.5 mg Q12H PRN Administration Pain , Severe (7-10) Sodium Chloride 1,000 mls @ 50 mls/hr 07/24/21 11:00 07/25/21 16:21 Nacl 0.9% 1000 Ml IV 50 mls/hr DIRECT YOUNG Administration Heparin Sodium/Sodium Chloride 25,000 unit in 500 mls @ 30 mls/hr 07/27/21 10:00 07/27/21 11:08 Heparin/ 0.45% Nacl-25,000 Unit/500 Ml IV 1,500 units/hr TITR YOUNG 30 mls/hr Administration Protocol 1,500 UNITS/HR Ibuprofen 400 mg 07/22/21 21:22 Ibuprofen 400 Mg Tab PO Q8H PRN neck pain Insulin Human Lispro 0 unit 07/23/21 00:00 07/27/21 12:44 Insulin Lispro 100 Unit/Ml SUB-Q Not Given Q6HR [facility] Protocol Metoprolol Tartrate 50 mg 07/25/21 11:00 07/27/21 10:57 Metoprolol Tartrate 50 Mg Tab PO 50 mg BID YOUNG Administration Morphine Sulfate 2 mg 07/22/21 16:44 Morphine 2 Mg/1 Ml Inj IV Q6H PRN Pain, Moderate (4-6) Nitroglycerin 0.4 mg 07/22/21 16:45 Nitroglycerin 0.4 Mg Tab Subl SL .Q5MIN PRN Chest Pain Ondansetron HCl 4 mg 07/22/21 16:44 Ondansetron 4 Mg/2 Ml Inj IV Q8H PRN Nausea And Vomiting Sodium Chloride 10 ml 07/22/21 22:00 07/27/21 10:57 Sodium Chloride 0.9% 10 Ml Flush Syringe IV 10 ml BID YOUNG Administration Sodium Chloride 10 ml 07/22/21 16:44 Sodium Chloride 0.9% 10 Ml Flush Syringe IV PRN PRN LINE FLUSH Tramadol HCl 50 mg 07/22/21 21:25 Tramadol 50 Mg Tab PO Q6H PRN Pain, Moderate (4-6)
[2021-07-27] MEDS: ACETAMINOPHEN 325 MG TAB PO PRN (20:45)
[2021-07-27] MEDS: CYCLOBENZAPRINE 10 MG TAB PO SCH (21:24)
[2021-07-28] MEDS: INSULIN LISPRO 100 UNIT/ML SUB-Q SCH ×4 (01:27→18:07)
[2021-07-28] MEDS ORDERED: HEPARIN 10,000 UNITS/10 ML VIAL IV PRN (05:51)
[2021-07-28] MEDS: METOPROLOL TARTRATE 50 MG TAB PO SCH ×2 (09:19→21:14)
[2021-07-28] MEDS: amLODIPine 5 MG TAB PO SCH (09:19)
[2021-07-28] MEDS: HEPARIN/ 0.45% NACL DRIP 25,000 UNIT/500 ML BAG IV SCH (09:19)
[2021-07-28] MEDS: ASPIRIN 81 MG TAB CHEW PO SCH (09:19)
[2021-07-28] MEDS: FAMOTIDINE 20 MG TAB PO SCH ×2 (09:19→21:14)
[2021-07-28] MEDS ORDERED: ALTEPLASE 10 MG in SODIUM CHLORIDE 0.9% 250ML 250 ML IV STA (10:32)
[2021-07-28] MEDS ORDERED: ALTEPLASE 20 MG in SODIUM CHLORIDE 0.9% 500 ML 500 ML EKOSDLUMEN STA (10:32)
[2021-07-28] MEDS ORDERED: ALTEPLASE 10 MG in SODIUM CHLORIDE 0.9% 250ML 250 ML EKOSDLUMEN STA (10:32)
--- NOTE | 2021-07-28 10:32 | Consultation ---
History of Present Illness - Reason for Consult Consult date: 07/28/21 Saddle Pulmonary Embolus Requesting physician: OLIVERIO GALVEZ - History of Present Illness The patient is a 71-year-old male who presented to the emergency department with complaints of not feeling right and associated shortness of breath. He states that approximately 1 week ago he had the sudden onset of chest pain however this did not last long. He then began experiencing shortness of breath that was worse with exertion. Upon admission he was found to have elevated troponins and had a work-up for an NSTEMI. The work-up included an echocardiogram that demonstrated a normal ejection fraction however he had moderately elevated pulmonary artery pressures. He also had a stress test that was negative for acute ischemia. He continued to complain of shortness of breath despite medical management and had a CTA of his chest to rule out possible infection. At that time he was found to have a submassive pulmonary embolus. Upon exam today he is lying in bed without significant difficulty however he does have continued shortness of breath with exertion. The patient also has a history of paroxysmal A. fib however he was not on anticoagulation at the time. He states he does have a previous history of a left lower extremity DVT in 2005 however he has not had any known DVT since that time. He denies any recent pain in bilateral lower extremities or swelling. He denies any recent surgery or prolonged bedrest. He denies any prolonged car rides or flights. He has no history of recent or remote head trauma and he denies any history of melena or bright red blood per rectum. The patient has no additional complaints at this time. Past History Past Medical History: atrial fib, diabetes, DVT (In 2005), hypertension Past Surgical History: hernia repair, Other (Left thyroid lobectomy) Social history: , lives with family. denies: smoking, alcohol abuse, prescription drug abuse Family history: diabetes, hypertension Medications and Allergies Allergies Allergy/AdvReac Type Severity Reaction Status Date / Time No Known Allergies Allergy Verified 07/22/21 14:11 Home Medications Medication Instructions Recorded Confirmed Last Taken Type Aspirin BABY CHEW TAB 81 mg PO DAILY 05/28/16 07/22/21 1 Day Ago History ~07/21/21 Famotidine [Pepcid] 20 mg PO BID #60 tablet 05/29/16 07/22/21 1 Day Ago Rx ~07/21/21 amLODIPine 5 mg PO QDAY #30 tablet 05/29/16 07/22/21 1 Day Ago Rx ~07/21/21 Cyclobenzaprine HCl [Flexeril 5 MG 5 mg PO QHS #20 tab 10/05/16 07/22/21 Unknown Rx TAB] Ibuprofen [Motrin 400 MG tab] 400 mg PO Q8H PRN #30 tablet 10/05/16 07/22/21 Unknown Rx Dextromethorphan Polistirex 30 mg PO BID PRN #150 [email or web address] 10/12/19 07/22/21 Unknown Rx [12-Hour Cough Relief] Active Meds: Active Medications Acetaminophen (Acetaminophen 325 Mg Tab) 650 mg PO Q4H PRN PRN Reason: Pain MILD(1-3)/Fever >100.5/SOLORZANO Last Admin: 07/27/21 20:45 Dose: 650 mg Albuterol (Albuterol 2.5 Mg/3 Ml Nebu) 2.5 mg IH Q4HRT PRN PRN Reason: Shortness Of Breath Amlodipine Besylate (Amlodipine 5 Mg Tab) 5 mg PO QDAY [facility] Last Admin: 07/28/21 09:19 Dose: 5 mg Aspirin (Aspirin 81 Mg Tab Chew) 81 mg PO DAILY [facility] Last Admin: 07/28/21 09:19 Dose: 81 mg Atorvastatin Calcium (Atorvastatin 40 Mg Tab) 40 mg PO QHS [facility] Last Admin: 07/27/21 21:24 Dose: 40 mg Cyclobenzaprine HCl (Cyclobenzaprine 10 Mg Tab) 5 mg PO QHS [facility] Last Admin: 07/27/21 21:24 Dose: 5 mg Dextrose (Dextrose 50% In Water (25gm) 50 Ml Syringe) 50 ml IV Q30MIN PRN; Protocol PRN Reason: Hypoglycemia Famotidine (Famotidine 20 Mg Tab) 20 mg PO BID [facility] Last Admin: 07/28/21 09:19 Dose: 20 mg Guaifenesin (Guaifenesin 100 Mg/5 Ml Oral Liqd) 200 mg PO Q4H PRN PRN Reason: Cough Last Admin: 07/27/21 20:46 Dose: 200 mg Heparin Sodium (Porcine) (Heparin 10,000 Units/10 Ml Vial) 5,000 unit IV Q6H PRN PRN Reason: Anti-Xa Assay < 0.1 units/ml Hydromorphone HCl (Hydromorphone 1 Mg/1 Ml Inj) 0.5 mg IV Q12H PRN PRN Reason: Pain , Severe (7-10) Last Admin: 07/22/21 20:56 Dose: 0.5 mg Sodium Chloride (Nacl 0.9% 1000 Ml) 1,000 mls @ 50 mls/hr IV DIRECT [facility] Last Admin: 07/25/21 16:21 Dose: 50 mls/hr Heparin Sodium/Sodium Chloride (Heparin/ 0.45% Nacl-25,000 Unit/500 Ml) 25,000 unit in 500 mls @ 30 mls/hr IV TITR [facility]; Protocol Last Admin: 07/28/21 09:19 Dose: 1,200 units/hr, 24 mls/hr Insulin Human Lispro (Insulin Lispro 100 Unit/Ml) 0 unit SUB-Q Q6HR [facility]; Protocol Last Admin: 07/28/21 08:40 Dose: Not Given Metoprolol Tartrate (Metoprolol Tartrate 50 Mg Tab) 50 mg PO BID [facility] Last Admin: 07/28/21 09:19 Dose: 50 mg Morphine Sulfate (Morphine 2 Mg/1 Ml Inj) 2 mg IV Q6H PRN PRN Reason: Pain, Moderate (4-6) Nitroglycerin (Nitroglycerin 0.4 Mg Tab Subl) 0.4 mg SL .Q5MIN PRN PRN Reason: Chest Pain Ondansetron HCl (Ondansetron 4 Mg/2 Ml Inj) 4 mg IV Q8H PRN PRN Reason: Nausea And Vomiting Sodium Chloride (Sodium Chloride 0.9% 10 Ml Flush Syringe) 10 ml IV BID [facility] Last Admin: 07/28/21 09:20 Dose: 10 ml Sodium Chloride (Sodium Chloride 0.9% 10 Ml Flush Syringe) 10 ml IV PRN PRN PRN Reason: LINE FLUSH Tramadol HCl (Tramadol 50 Mg Tab) 50 mg PO Q6H PRN PRN Reason: Pain, Moderate (4-6) Review of Systems All systems: negative Exam - Constitutional Vitals: Temp Pulse Resp BP Pulse Ox 99.1 F 98 H 21 150/95 95 07/28/21 08:19 07/28/21 08:19 07/28/21 09:29 07/28/21 08:19 07/28/21 09:29 General appearance: Present: no acute distress - Neck Neck: Present: supple - Respiratory Respiratory effort: normal - Extremities Extremities: pulses intact (Positive pedal pulses bilaterally), No edema - Abdominal General gastrointestinal: Present: soft Male genitourinary: Present: deferred Results - Labs CBC & Chem 7: 07/27/21 05:35 07/27/21 05:35 Labs: Abnormal lab results 07/27/21 07/27/21 07/27/21 Range/Units 10:32 11:40 17:57 PT 17.7 H (12.2-14.9) Sec. INR 1.30 H (0.87-1.13) Heparin Anti-Xa Level 1.42 H (0.3-0.7) U.I./ml POC Glucose 108 H (70-105) mg/dL 07/28/21 Range/Units 05:28 PT (12.2-14.9) Sec. INR (0.87-1.13) Heparin Anti-Xa Level 0.76 H (0.3-0.7) U.I./ml POC Glucose (70-105) mg/dL - Imaging and Cardiology CT scan - chest: image reviewed Assessment and Plan The patient is a 71-year-old male with a submassive saddle pulmonary embolus who meets the criteria for intervention with shortness of breath on exertion, evidence of right heart strain and pulmonary hypertension, as well as elevated troponins on his initial presentation. At this time he has no contraindications for thrombolytics so I discussed bilateral pulmonary artery thrombolysis. The patient was given the risk, benefits, and alternative procedures and expressed understanding and has agreed to proceed.
[2021-07-28] MEDS ORDERED: HEPARIN/ 0.45% NACL DRIP 25,000 UNIT/500 ML BAG SHEATH SCH ×3 (11:00)
[2021-07-28] MEDS ORDERED: SODIUM CHLORIDE 0.9% 1000 ML 1,000 ML IV SCH (11:00)
[2021-07-28] MEDS ORDERED: HYDROcodone/ACETAMINOPHEN 5-325 MG TAB PO PRN (11:00)
[2021-07-28] MEDS ORDERED: SODIUM CHLORIDE 0.9% 1000 ML 1,000 ML SHEATH SCH ×3 (11:00)
[2021-07-28] MEDS ORDERED: ACETAMINOPHEN 325 MG TAB PO PRN (11:00)
[2021-07-28] MEDS ORDERED: SODIUM CHLORIDE 0.9% 1000 ML 1,000 ML EKOSCLUMEN SCH ×3 (11:00)
[2021-07-28] MEDS ORDERED: ONDANSETRON 4 MG/2 ML INJ IV PRN (11:30)
[2021-07-28] MEDS ORDERED: HEPARIN/NS 5000 UNIT/500ML 1,000 ML IR ONE (12:14)
[2021-07-28] MEDS ORDERED: SODIUM CHLORIDE 0.9% 1000 ML 2,000 ML ONE (12:14)
[2021-07-28] MEDS ORDERED: WATER FOR INJ Sterile (PF) 10 ML ONE (12:21)
[2021-07-28] MEDS ORDERED: SODIUM CHLORIDE 0.9% 500 ML 500 ML ONE (12:40)
[2021-07-28] MEDS ORDERED: fentaNYL 100 MCG/2 ML INJ ONE (12:48)
[2021-07-28] MEDS: MIDAZOLAM 2 MG/2 ML INJ ONE ×2 (13:20→13:29)
[2021-07-28] MEDS: LIDOCAINE (2%) 20 MG/1 ML VIAL 50 ML MDV INFILTRATI ONE (13:20)
[2021-07-28] MEDS: HEPARIN/ 0.45% NACL DRIP 50,000 UNIT/1,000 ML BAG ONE ×2 (13:24→18:06)
[2021-07-28] MEDS: ALTEPLASE 2 MG INJ ONE ×2 (13:28→13:42)
[2021-07-28] MEDS: HEPARIN 10,000 UNITS/10 ML VIAL ONE ×2 (13:28→13:42)
[2021-07-28 13:40] LABS: Basophils # (Auto) 0.1 K/mm3 (0.0-0.1); Basophils % (Auto) 0.6 % (0.0-1.8); Eosinophils # (Auto) 0.2 K/mm3 (0.0-0.4); Hemoglobin 15.1 gm/dl (11.8-15.2); Lymphocytes # (Auto) 2.6 K/mm3 (1.2-5.4); Lymphocytes % (Auto) 24.7 % (13.4-35.0); Mean Corpuscular HGB Conc 34 % (32-34); Mean Corpuscular Volume 96 fl (84-94); Monocytes % (Auto) 9.5 % (0.0-7.3); Platelet Count 248 K/mm3 (140-440); Red Blood Count 4.57 M/mm3 (3.65-5.03); Red Cell Distribution Width 12.6 % (13.2-15.2)
[2021-07-28 13:42] LABS: BUN/Creatinine Ratio 15; Blood Urea Nitrogen 17 mg/dL (9-20); Hemolysis Index 0
[2021-07-28 13:45] LABS: INR 1.07 (0.87-1.13)
[2021-07-28 13:55] LABS: Basophils # (Auto) 0.1 K/mm3 (0.0-0.1); Basophils % (Auto) 0.9 % (0.0-1.8); Eosinophils # (Auto) 0.2 K/mm3 (0.0-0.4); Eosinophils % (Auto) 1.9 % (0.0-4.3); Hematocrit 38.8 % (35.5-45.6); Hemoglobin 13.8 gm/dl (11.8-15.2); Lymphocytes # (Auto) 2.2 K/mm3 (1.2-5.4); Lymphocytes % (Auto) 22.9 % (13.4-35.0); Mean Corpuscular HGB Conc 36 % (32-34); Mean Corpuscular Volume 95 fl (84-94); Monocytes # (Auto) 0.8 K/mm3 (0.0-0.8); Monocytes % (Auto) 8.6 % (0.0-7.3); Platelet Count 226 K/mm3 (140-440); Red Blood Count 4.08 M/mm3 (3.65-5.03); Red Cell Distribution Width 12.3 % (13.2-15.2)
--- NOTE | 2021-07-28 14:42 | Operative Report ---
Operative Report Operative Report: Date of Procedure: 07/28/2021 Pre-operative Diagnosis: Symptomatic Saddle Pulmonary Embolus Post-operative Diagnosis: Same Procedure(s): 1. Ultrasound-Guided Access Right Common Femoral Vein 2. Additional Ultrasound-Guided Access Right Common Femoral Vein 3. Right Lower Extremity Venogram 4. Inferior Venacavogram 5. Bilateral Pulmonary Artery Angiogram 6. Thrombolysis of Left Pulmonary Artery with 106 x 12 EKOS Thrombolysis Catheter 7. Thrombolysis of Right pulmonary Artery with 106 x 12 EKOS Thrombolysis Catheter 8. Radiologic Supervision with Interpretation 9. Monitored Moderate Sedation (Total Anesthesia Time: 28 Minutes) Surgeon: Tyrell Park M.D. [place]: None Anesthesia: Local/Monitored Moderate Sedation Total Anesthesia Time: 28 Minutes EBL: Minimal Counts: Correct Complications: None Condition: Stable Specimen: None Indication: The patient is a 71-year-old male who presented with complaints of shortness of breath with exertion and was initially found to have elevated troponins with an echocardiogram that demonstrated increased pulmonary artery pressures. He had a stress test that was negative for acute ischemia and eventually underwent a CTA, of his chest, that demonstrated saddle pulmonary embolus. He is found to be a suitable candidate for thrombolysis and was given the risk, benefits, and alternative procedures and has consented to procedure. Angiographic Findings: The right external iliac vein, right common iliac vein, and inferior vena cava were free of thrombus. The diagnostic pulmonary artery angiogram revealed thrombus extending from the main pulmonary artery into right and left main pulmonary arteries respectively as well as into the interlobar segments of bilateral lungs. The left EKOS thrombolysis catheter was placed with the distal tip in the left lower lobe and the proximal tip in the left main pulmonary artery. The right EKOS thrombolysis catheter was placed with the distal tip in the middle lobe and the proximal tip in the right main pulmonary artery. Description of Procedure: The patient was brought to the [facility] and laid in supine position. After timeout was performed his right groin was prepped and draped in normal sterile fashion. Ultrasound was used to identify the right common femoral artery and confirm patency. Once patency was confirmed the overlying skin and soft tissue was anesthetized with lidocaine. An 11 blade was used to make 2 small stab incisions and then a curved hemostat was used, through each incision, to bluntly dissect down to the anterior surface of the left common femoral artery. A 21- gauge micropuncture needle was used with ultrasound guidance to access the left common femoral vein through the distal stab incision and a 0.018 micropuncture wire was advanced into the vein. The needle was removed and a micropuncture sheath was placed by Seldinger technique. The dilator and wire were removed and a 0.035 Bentson wire was advanced into the inferior vena cava. The micropuncture sheath was then removed leaving the wire in place. I then used a 21-gauge micropuncture needle with ultrasound guidance into the left common femoral vein through the proximal stab incision. A 0.018 micropuncture wire was advanced into the vein and after removing the needle a micropuncture sheath was placed by Seldinger technique. The dilator and wire were removed and a 0.035 Bentson wire was advanced into the inferior vena cava. The micropuncture sheath was removed and a 6 [place] 11 cm sheath were placed over each wire into the common femoral vein. Each Bentson wire had difficulty advancing through the inferior vena cava so I performed a diagnostic right lower extremity venogram w ith inferior cavogram was performed the previously described findings. I then used a JR4 catheter, through the distal sheath, and advanced this over the wire and used the catheter and wire to cannulate the left main pulmonary artery. I remove the wire and performed a pulmonary artery angiogram with the previously described findings. I then advanced the Bentson wire into the left lower lobe and after removing the JR4 catheter advanced the EKOS thrombolysis catheter into position. I then inserted the ultrasound wire. I advanced a JR4 catheter over the Bentson wire and the proximal sheath and was able to cannulate the right main pulmonary artery. I remove the wire and performed a diagnostic pulmonary artery angiogram with the previously described findings. I then advanced the Bentson wire to the middle lobe and after removing the JR4 catheter advanced the EKOS thrombolysis catheter into place. I then advanced the ultrasound wire into position. The sheaths and catheters were then secured in position with 2-0 silk sutures in interrupted fashion. I then primed each sheath with a total of 3000 units of heparin respectively. I primed each coolant port with 2000 units of heparin respectively. I then primed each drug port with 4 mg of tPA. The sheaths and catheters were then dressed with sterile dressings. The patient tolerated the procedure well was transported to the intensive care unit in stable condition.
--- NOTE | 2021-07-28 14:50 | Progress Note ---
Assessment and Plan Assessment and plan: #Newly diagnosed saddle pulmonary embolism (unprovoked) Patient denies immobilization, hormone therapy, surgery, long travel, tobacco dependence. However, patient endorses having unprovoked DVT >20 years ago that required 6 months of Coumadin treatment. Revealed on CT chest Discontinued apixaban 5 mg twice daily and started heparin drip. Low clinical suspicion for RV strain due to the patient recently having nuclear stress test that did not reveal this. Vascular surgery consulted for possible mechanical thrombectomy; appreciate recs. Status post EKOS by vascular surgery on 07/28/2021. Patient will be transferring to ICU. #Near syncope -CT head negative for acute process; MRI brain unremarkable -patient reports feeling lightheadedness and dizziness while ambulating prior to coming to ED -Neurology consulted, assistance appreciated #PAF (paroxysmal atrial fibrillation) -not on AC at home -continue metoprolol tartrate 50mg bid and telemetry while inpatient -discussed increased risk of stroke to patient. Will likely initiate Eliquis 5 mg twice daily upon discharge. #NSTEMI (non-ST elevated myocardial infarction) -Troponin peak 0.121 -Echocardiogram: LVEF 55 to 60%, mild to moderate tricuspid regurg and moderate pulmonary hypertension -Cardiology following, appreciate recs Nuclear stress test unremarkable for ischemia #Fever -Believed to be secondary to newly diagnosed saddle pulmonary embolism -Blood cultures collected 07/23 no growth to date x72 hours; will reorder -not convinced of infection at this time and will not start antibiotics -COVID-19 PCR negative, CXR negative for acute process, UA unremarkable -discussed with patient and , they are adimant about having an infection, will order CT of chest/abd/pelvis #Diastolic CHF -not in acute exacerbation -strict I/O, monitor urine output every shift, daily weight #Non-insulin dependent type II diabetes mellitus - hemoglobin A1c: 5.5 - home regimen: None/diet controlled - current regimen: SSI - blood glucose goal 140-180 while inpatient - continue to monitor #Hypertension #Hyperlipidemia - home medications: Amlodipine 5 mg daily - current medications: Amlodipine 5 mg daily and atorvastatin 40 mg daily - SBP goal <160 and DBP goal <90 while inpatient - continue to monitor #Vascular dementia #Cerebral atherosclerosis -Antiplatelet therapy as clinically indicated, supportive care. Risk factor reduction. Critical Care Billing: The high probability of a clinically significant, sudden or life threatening deterioration of the [pulmonary] system(s) required my full and direct attention, intervention and personal management. The aggregate critical care time was [60] minutes. This time is in addition to time spent performing reported procedures but includes the following: [x] Data Review and interpretation [x] Patient assessment and monitoring of vital signs [x] Documentation [x] Medication orders and management Disposition Plan: Continue medical management Total Time Spent with Patient (Minutes): 45 minutes History Interval history: No acute events overnight. Hospitalist Physical - Constitutional Vitals: Temp Pulse Resp BP Pulse Ox 99.1 F 98 H 21 150/95 95 07/28/21 08:19 07/28/21 08:19 07/28/21 09:29 07/28/21 08:19 07/28/21 09:29 General appearance: Present: no acute distress, well-nourished, obese - EENT Eyes: Present: PERRL, EOM intact ENT: hearing intact, clear oral mucosa, dentition normal - Neck Neck: Present: supple, normal ROM - Respiratory Respiratory effort: normal - Cardiovascular Rhythm: regular Heart Sounds: Present: S1 & S2 - Extremities Extremities: no ischemia, pulses intact, pulses symmetrical, No edema, normal temperature, normal color, Full ROM Peripheral Pulses: within normal limits - Abdominal General gastrointestinal: soft, non-tender, non-distended, normal bowel sounds - Integumentary Integumentary: Present: clear, warm, dry - Psychiatric Psychiatric: appropriate mood/affect, intact judgment & insight, memory intact, cooperative - Neurologic Neurologic: CNII-XII intact, moves all extremities - Allied Health Allied health notes reviewed: nursing HEART Score - HEART Score Troponin: Troponin T 0.105 ng/mL (0.00-0.029) H* 07/23/21 05:36 Results - Labs CBC & Chem 7: 07/28/21 13:42 07/28/21 12:17 Labs: Laboratory Last Values WBC 9.8 K/mm3 (4.5-11.0) 07/28/21 13:42 RBC 4.08 M/mm3 (3.65-5.03) 07/28/21 13:42 Hgb 13.8 gm/dl (11.8-15.2) 07/28/21 13:42 Hct 38.8 % (35.5-45.6) 07/28/21 13:42 MCV 95 fl (84-94) H 07/28/21 13:42 MCH 34 pg (28-32) H 07/28/21 13:42 MCHC 36 % (32-34) H 07/28/21 13:42 RDW 12.3 % (13.2-15.2) L 07/28/21 13:42 Plt Count 226 K/mm3 (140-440) 07/28/21 13:42 Lymph % (Auto) 22.9 % (13.4-35.0) 07/28/21 13:42 [place] % (Auto) 8.6 % (0.0-7.3) H 07/28/21 13:42 Eos % (Auto) 1.9 % (0.0-4.3) 07/28/21 13:42 Baso % (Auto) 0.9 % (0.0-1.8) 07/28/21 13:42 Lymph # (Auto) 2.2 K/mm3 (1.2-5.4) 07/28/21 13:42 [place] # (Auto) 0.8 K/mm3 (0.0-0.8) 07/28/21 13:42 Eos # (Auto) 0.2 K/mm3 (0.0-0.4) 07/28/21 13:42 Baso # (Auto) 0.1 K/mm3 (0.0-0.1) 07/28/21 13:42 Seg Neutrophils % 65.7 % (40.0-70.0) 07/28/21 13:42 Seg Neutrophils # 6.4 K/mm3 (1.8-7.7) 07/28/21 13:42 PT 15.1 Sec. (12.2-14.9) H 07/28/21 12:17 INR 1.07 (0.87-1.13) 07/28/21 12:17 APTT 34.0 Sec. (24.2-36.6) 07/28/21 12:17 Fibrinogen 703 mg/dl (211-480) H 07/28/21 13:42 Heparin Anti-Xa Level 0.52 U.I./ml (0.3-0.7) 07/28/21 13:42 Sodium 140 mmol/L (137-145) 07/28/21 12:17 Potassium 3.8 mmol/L (3.6-5.0) 07/28/21 12:17 Chloride 101.1 mmol/L (98-107) 07/28/21 12:17 Carbon Dioxide 26 mmol/L (22-30) 07/28/21 12:17 Anion Gap 17 mmol/L 07/28/21 12:17 BUN 17 mg/dL (9-20) 07/28/21 12:17 Creatinine 1.1 mg/dL (0.8-1.3) 07/28/21 12:17 Estimated GFR > 60 ml/min 07/28/21 12:17 BUN/Creatinine Ratio 15 % 07/28/21 12:17 Glucose 100 mg/dL (75-100) 07/28/21 12:17 POC Glucose 99 mg/dL (70-105) 07/28/21 08:17 Hemoglobin A1c 5.5 % (4-6) 07/25/21 11:25 Lactic Acid 1.60 mmol/L (0.7-2.0) 07/22/21 12:53 Calcium 9.0 mg/dL (8.4-10.2) 07/28/21 12:17 Total Bilirubin 0.90 mg/dL (0.1-1.2) 07/25/21 11:25 AST 32 units/L (5-40) 07/25/21 11:25 ALT 12 units/L (7-56) 07/25/21 11:25 Alkaline Phosphatase 66 units/L (35-129) 07/25/21 11:25 Troponin T 0.105 ng/mL (0.00-0.029) H* 07/23/21 05:36 NT-Pro-B Natriuret Pep 812.1 pg/mL (0-900) 07/23/21 00:16 Total Protein 7.5 g/dL (6.3-8.2) 07/25/21 11:25 Albumin 3.9 g/dL (3.9-5) 07/25/21 11:25 Albumin/Globulin Ratio 1.1 % 07/25/21 11:25 Triglycerides 161 mg/dL (2-149) H 07/22/21 12:53 Cholesterol 234 mg/dL (50-199) H 07/22/21 12:53 LDL Cholesterol Direct 174 mg/dL (50-130) H 07/22/21 12:53 HDL Cholesterol 40 mg/dL (40-59) 07/22/21 12:53 Cholesterol/HDL Ratio 5.85 % 07/22/21 12:53 Vitamin B12 348.5 pg/mL (211-911) 07/25/21 11:25 TSH 3.420 mlU/mL (0.270-4.200) 07/25/21 11:25 Urine Color Yellow (Yellow) 07/23/21 14:33 Urine Turbidity Clear (Clear) 07/23/21 14:33 Urine pH 5.0 (5.0-7.0) 07/23/21 14:33 Ur Specific [place] 1.013 (1.003-1.030) 07/23/21 14:33 Urine Protein <15 mg/dl mg/dL (Negative) 07/23/21 14:33 Urine Glucose (UA) Neg mg/dL (Negative) 07/23/21 14:33 Urine Ketones Neg mg/dL (Negative) 07/23/21 14:33 Urine Blood Sm (Negative) 07/23/21 14:33 Urine Nitrite Neg (Negative) 07/23/21 14:33 Urine Bilirubin Neg (Negative) 07/23/21 14:33 Urine Urobilinogen < 2.0 mg/dL (<2.0) 07/23/21 14:33 Ur Leukocyte Esterase Neg (Negative) 07/23/21 14:33 Urine WBC (Auto) 1.0 /HPF (0.0-6.0) 07/23/21 14:33 Urine RBC (Auto) 1.0 /HPF (0.0-6.0) 07/23/21 14:33 Urine Mucus 1+ /HPF 07/23/21 14:33 Coronavirus (PCR) Negative (Negative) 07/23/21 01:08 Microbiology: Microbiology 07/22/21 12:53 Peripheral/Venous Blood Culture - Final NO GROWTH AFTER 5 DAYS 07/22/21 12:53 Peripheral/Venous Blood Culture - Final NO GROWTH AFTER 5 DAYS Anne/IV: Voiding Method Toilet Active Medications - Current Medications Current Medications: Generic Name Dose Route Start Last Admin Trade Name Freq PRN Reason Stop Dose Admin Acetaminophen 650 mg 07/28/21 11:00 Acetaminophen 325 Mg Tab PO Q6H PRN Pain, Mild (1-3) Hydrocodone Bitart/Acetaminophen 2 each 07/28/21 11:00 Hydrocodone/Acetaminophen 5-325 Mg Tab PO Q6H PRN Pain, Moderate (4-6) Albuterol 2.5 mg 07/22/21 16:44 Albuterol 2.5 Mg/3 Ml Nebu IH Q4HRT PRN Shortness Of Breath Amlodipine Besylate 5 mg 07/23/21 10:00 07/28/21 09:19 Amlodipine 5 Mg Tab PO 5 mg QDAY YOUNG Administration Aspirin 81 mg 07/23/21 10:00 07/28/21 09:19 Aspirin 81 Mg Tab Chew PO 81 mg DAILY YOUNG Administration Atorvastatin Calcium 40 mg 07/22/21 22:00 07/27/21 21:24 Atorvastatin 40 Mg Tab PO 40 mg QHS YOUNG Administration Cyclobenzaprine HCl 5 mg 07/22/21 22:00 07/27/21 21:24 Cyclobenzaprine 10 Mg Tab PO 5 mg QHS YOUNG Administration Dextrose 50 ml 07/22/21 21:32 Dextrose 50% In Water (25gm) 50 Ml Syringe IV Q30MIN PRN Hypoglycemia Protocol Famotidine 20 mg 07/22/21 22:00 07/28/21 09:19 Famotidine 20 Mg Tab PO 20 mg BID YOUNG Administration Guaifenesin 200 mg 07/23/21 01:14 07/27/21 20:46 Guaifenesin 100 Mg/5 Ml Oral Liqd PO 200 mg Q4H PRN Administration Cough Alteplase, Recombinant 10 mg/ 250 mls @ 10 mls/hr 07/28/21 10:32 07/28/21 13:29 Sodium Chloride EKOSDLUMEN 07/29/21 11:31 0 mls DIRECT STA Administration Alteplase, Recombinant 10 mg/ 250 mls @ 10 mls/hr 07/28/21 10:32 07/28/21 13:30 Sodium Chloride IV 07/29/21 11:31 0 mls DIRECT STA Administration Sodium Chloride 1,000 mls @ 30 mls/hr 07/28/21 11:00 07/28/21 13:31 Nacl 0.9% 1000 Ml SHEATH 0 mls DIRECT YOUNG Administration Sodium Chloride 1,000 mls @ 35 mls/hr 07/28/21 11:00 Nacl 0.9% 1000 Ml EKOSCLUMEN DIRECT YOUNG Sodium Chloride 1,000 mls @ 30 mls/hr 07/28/21 11:00 07/28/21 13:31 Nacl 0.9% 1000 Ml SHEATH 0 mls DIRECT YOUNG Administration Sodium Chloride 1,000 mls @ 35 mls/hr 07/28/21 11:00 Nacl 0.9% 1000 Ml EKOSCLUMEN DIRECT YOUNG Heparin Sodium/Sodium Chloride 25,000 unit in 500 mls @ 10 mls/hr 07/28/21 11:00 Heparin/ 0.45% Nacl-25,000 Unit/500 Ml SHEATH DIRECT YOUNG Protocol 500 UNITS/HR Heparin Sodium/Sodium Chloride 25,000 unit in 500 mls @ 10 mls/hr 07/28/21 11:00 07/28/21 13:31 Heparin/ 0.45% Nacl-25,000 Unit/500 Ml SHEATH 0 mls DIRECT YOUNG Administration Protocol 500 UNITS/HR Insulin Human Lispro 0 unit 07/23/21 00:00 07/28/21 08:40 Insulin Lispro 100 Unit/Ml SUB-Q Not Given Q6HR [facility] Protocol Metoprolol Tartrate 50 mg 07/25/21 11:00 07/28/21 09:19 Metoprolol Tartrate 50 Mg Tab PO 50 mg BID YOUNG Administration Morphine Sulfate 4 mg 07/28/21 11:30 Morphine 4 Mg/1 Ml Inj IV Q4H PRN Pain , Severe (7-10) Morphine Sulfate 2 mg 07/28/21 11:30 Morphine 2 Mg/1 Ml Inj IV Q4H PRN Pain, Moderate (4-6) Nitroglycerin 0.4 mg 07/22/21 16:45 Nitroglycerin 0.4 Mg Tab Subl SL .Q5MIN PRN Chest Pain Ondansetron HCl 4 mg 07/28/21 11:30 Ondansetron 4 Mg/2 Ml Inj IV Q8H PRN Nausea And Vomiting Sodium Chloride 10 ml 07/22/21 22:00 07/28/21 09:20 Sodium Chloride 0.9% 10 Ml Flush Syringe IV 10 ml BID YOUNG Administration Sodium Chloride 10 ml 07/22/21 16:44 Sodium Chloride 0.9% 10 Ml Flush Syringe IV PRN PRN LINE FLUSH Tramadol HCl 50 mg 07/22/21 21:25 Tramadol 50 Mg Tab PO Q6H PRN Pain, Moderate (4-6)
[2021-07-28] MEDS: MORPHINE 2 MG/1 ML INJ IV PRN (15:39)
[2021-07-28] MEDS: MORPHINE 4 MG/1 ML INJ IV PRN (20:16)
[2021-07-28] MEDS: CYCLOBENZAPRINE 10 MG TAB PO SCH (21:14)
[2021-07-28 22:44] LABS: Basophils # (Auto) 0.1 K/mm3 (0.0-0.1); Basophils % (Auto) 0.8 % (0.0-1.8); Eosinophils # (Auto) 0.1 K/mm3 (0.0-0.4); Hematocrit 41.2 % (35.5-45.6); Lymphocytes # (Auto) 2.2 K/mm3 (1.2-5.4); Lymphocytes % (Auto) 21.8 % (13.4-35.0); Mean Corpuscular HGB Conc 34 % (32-34); Mean Corpuscular Volume 96 fl (84-94); Monocytes # (Auto) 0.7 K/mm3 (0.0-0.8); Monocytes % (Auto) 6.9 % (0.0-7.3); Platelet Count 234 K/mm3 (140-440); Red Blood Count 4.29 M/mm3 (3.65-5.03); Red Cell Distribution Width 12.5 % (13.2-15.2)
[2021-07-29] MEDS: MORPHINE 2 MG/1 ML INJ IV PRN (00:51)
[2021-07-29] MEDS: INSULIN LISPRO 100 UNIT/ML SUB-Q SCH ×4 (02:50→19:08)
[2021-07-29 05:24] LABS: Basophils # (Auto) 0.1 K/mm3 (0.0-0.1); Basophils % (Auto) 1.2 % (0.0-1.8); Eosinophils # (Auto) 0.1 K/mm3 (0.0-0.4); Eosinophils % (Auto) 1.5 % (0.0-4.3); Hematocrit 40.6 % (35.5-45.6); Hemoglobin 13.8 gm/dl (11.8-15.2); Lymphocytes # (Auto) 2.3 K/mm3 (1.2-5.4); Lymphocytes % (Auto) 26.6 % (13.4-35.0); Mean Corpuscular HGB Conc 34 % (32-34); Mean Corpuscular Volume 96 fl (84-94); Monocytes # (Auto) 0.8 K/mm3 (0.0-0.8); Monocytes % (Auto) 8.8 % (0.0-7.3); Platelet Count 224 K/mm3 (140-440); Red Blood Count 4.21 M/mm3 (3.65-5.03); Red Cell Distribution Width 12.6 % (13.2-15.2)
[2021-07-29 05:40] LABS: BUN/Creatinine Ratio 15; Blood Urea Nitrogen 16 mg/dL (9-20); Calcium 7.6 mg/dL (8.4-10.2); Hemolysis Index 5
[2021-07-29] MEDS: MORPHINE 4 MG/1 ML INJ IV PRN (06:06)
[2021-07-29] MEDS ORDERED: HEPARIN/NS 5000 UNIT/500ML 500 ML IR ONE (09:21)
[2021-07-29] MEDS ORDERED: LIDOCAINE (2%) 20 MG/1 ML VIAL 50 ML MDV INFILTRATI ONE (09:22)
[2021-07-29] MEDS ORDERED: MIDAZOLAM 2 MG/2 ML INJ ONE (09:28)
[2021-07-29] MEDS ORDERED: fentaNYL 100 MCG/2 ML INJ ONE (09:28)
[2021-07-29] MEDS: MIDAZOLAM 2 MG/2 ML INJ ONE (10:06)
[2021-07-29] MEDS: LIDOCAINE (2%) 20 MG/1 ML VIAL 50 ML MDV INFILTRATI ONE (10:10)
--- NOTE | 2021-07-29 10:19 | Operative Report ---
Operative Report Operative Report: Exam: Bilateral pulmonary angiography, thrombolytics catheter removal Clinical indication: Patient with a history of submassive pulmonary embolism status postplacement of bilateral EKOS thrombolytics catheters Date: 07/29/2021 Procedure: Following an explanation of the risks, benefits and alternatives; written informed consent was obtained. The patient was brought to the angiographic suite and placed in supine position on the examination table. Initial fluoroscopic evaluation of the patient's chest demonstrated appropriate positioning of both the left and right EKOS thrombolytics catheters. I the patient's right groin and indwelling catheters and sheaths were prepped and draped in the usual sterile fashion. 2% lidocaine was used for anesthesia at the sheath insertion sites. The left EKOS thrombolytics infusion wire was removed under fluoroscopy. The catheter was withdrawn proximally and contrast injected and imaging obtained of the left pulmonary arteries. No central or large segmental pulmonary embolus is identified. Under fluoroscopy, the EKOS catheter was removed. The right EKOS thrombolytics infusion wire was removed under fluoroscopy. The catheter was withdrawn proximally and contrast injected which demonstrates the right pulmonary arteries. No central or large segmental pulmonary embolism is identified. The EKOS catheter was removed under fluoroscopy. The sheaths were removed and hemostasis achieved using manual compression. The patient tolerated the procedure well. There were no immediate postprocedure complications. Conscious sedation was performed under the guidance of radiologic nursing. Continuous cardiopulmonary monitoring was utilized. Impression: 1) Bilateral pulmonary angiography demonstrating no large central or segmental pulmonary emboli. 2) Removal of bilateral EKOS thrombolytics catheters
--- NOTE | 2021-07-29 10:23 | Progress Note ---
Assessment and Plan Patient was brought down to [facility] for removal of EKOS thrombolytics catheters. No large central or segmental pulmonary embolism is identified. The patient is breathing comfortably and maintaining his saturations. I have reordered the heparin drip. The patient may be transitioned to oral anticoagulation in conjunction with cardiology recommendations. Would recommend DOAC. Subjective Date of service: 07/29/21 Principal diagnosis: SOB/Dizziness/diplopia Interval history: Patient with a history of submassive pulmonary embolism status post placement of bilateral EKOS thrombolytics catheters. Time of examination, patient is complaining of some mild back pain secondary to immobility. Breathing easily with no significant chest pain Objective - Constitutional Vitals: Vital Signs - 12hr 07/28/21 07/28/21 07/28/21 22:31 22:45 23:01 Temperature Pulse Rate 94 H 92 H 91 H Pulse Rate [ From Monitor] Respiratory 20 20 23 Rate Blood Pressure 146/84 146/84 139/86 O2 Sat by Pulse 95 96 96 Oximetry 07/28/21 07/28/21 07/28/21 23:11 23:15 23:31 Temperature Pulse Rate 90 91 H 91 H Pulse Rate [ From Monitor] Respiratory 25 H 21 25 H Rate Blood Pressure 139/86 139/86 139/86 O2 Sat by Pulse 95 96 95 Oximetry 07/28/21 07/29/21 07/29/21 23:45 00:00 00:01 Temperature 98.3 F Pulse Rate 90 90 Pulse Rate [ 95 H From Monitor] Respiratory 28 H 24 17 Rate Blood Pressure 139/86 139/86 O2 Sat by Pulse 96 96 98 Oximetry 07/29/21 07/29/21 07/29/21 00:15 00:31 00:45 Temperature Pulse Rate 89 89 89 Pulse Rate [ From Monitor] Respiratory 22 20 16 Rate Blood Pressure 139/86 139/86 148/84 O2 Sat by Pulse 97 96 95 Oximetry 07/29/21 07/29/21 07/29/21 01:01 01:15 01:31 Temperature Pulse Rate 85 84 83 Pulse Rate [ From Monitor] Respiratory 15 18 17 Rate Blood Pressure 148/84 148/84 148/84 O2 Sat by Pulse 97 93 96 Oximetry 07/29/21 07/29/21 07/29/21 01:45 02:01 02:15 Temperature Pulse Rate 83 82 82 Pulse Rate [ From Monitor] Respiratory 21 22 16 Rate Blood Pressure 148/84 148/84 148/84 O2 Sat by Pulse 95 94 95 Oximetry 07/29/21 07/29/21 07/29/21 02:31 02:46 03:00 Temperature Pulse Rate 85 86 87 Pulse Rate [ From Monitor] Respiratory 19 22 23 Rate Blood Pressure 148/84 134/80 O2 Sat by Pulse 97 96 95 Oximetry 07/29/21 07/29/21 07/29/21 03:16 03:30 03:46 Temperature Pulse Rate 87 88 86 Pulse Rate [ From Monitor] Respiratory 23 11 L 26 H Rate Blood Pressure 134/80 134/80 134/80 O2 Sat by Pulse 95 97 97 Oximetry 07/29/21 07/29/21 07/29/21 04:00 04:16 04:30 Temperature 98.3 F Pulse Rate 88 86 89 Pulse Rate [ 89 From Monitor] Respiratory 21 21 21 Rate Blood Pressure 142/76 142/76 142/76 O2 Sat by Pulse 97 96 96 Oximetry 07/29/21 07/29/21 07/29/21 04:46 05:00 05:16 Temperature Pulse Rate 89 92 H 89 Pulse Rate [ From Monitor] Respiratory 21 18 23 Rate Blood Pressure 142/76 120/78 120/78 O2 Sat by Pulse 97 97 97 Oximetry 07/29/21 07/29/21 07/29/21 05:30 05:46 06:00 Temperature Pulse Rate 89 88 93 H Pulse Rate [ From Monitor] Respiratory 23 18 19 Rate Blood Pressure 120/78 120/78 132/81 O2 Sat by Pulse 96 95 97 Oximetry 07/29/21 07/29/21 07/29/21 06:16 06:30 06:46 Temperature Pulse Rate 88 87 88 Pulse Rate [ From Monitor] Respiratory 22 21 20 Rate Blood Pressure 132/81 132/81 132/81 O2 Sat by Pulse 95 96 96 Oximetry 07/29/21 07/29/21 07/29/21 07:00 07:16 07:30 Temperature 99.3 F Pulse Rate 86 86 87 Pulse Rate [ From Monitor] Respiratory 22 21 22 Rate Blood Pressure 125/80 125/80 125/80 O2 Sat by Pulse 96 96 96 Oximetry 07/29/21 07/29/21 07/29/21 07:46 08:00 08:40 Temperature Pulse Rate 86 86 Pulse Rate [ 87 From Monitor] Respiratory 21 21 Rate Blood Pressure 125/80 131/77 O2 Sat by Pulse 98 97 98 Oximetry General appearance: Present: no acute distress - EENT Eyes: EOM intact ENT: hearing intact - Neck Neck: supple, normal ROM - Respiratory Respiratory effort: normal - Gastrointestinal General gastrointestinal: Present: deferred Rectal Exam: deferred - Genitourinary Male genitourinary: deferred - Integumentary Integumentary: clear, dry - Psychiatric Psychiatric: appropriate mood/affect, cooperative - Labs CBC & Chem 7: 07/29/21 04:24 07/29/21 04:24 Labs: Abnormal lab results 07/28/21 07/28/21 07/28/21 Range/Units 12:17 12:17 13:42 MCV 96 H 95 H (84-94) fl MCH 33 H 34 H (28-32) pg MCHC 36 H (32-34) % RDW 12.6 L 12.3 L (13.2-15.2) % [place] % (Auto) 9.5 H 8.6 H (0.0-7.3) % [place] # (Auto) 1.0 H (0.0-0.8) K/mm3 PT 15.1 H (12.2-14.9) Sec. Fibrinogen 782 H (211-480) mg/dl Calcium (8.4-10.2) mg/dL 07/28/21 07/28/21 07/28/21 Range/Units 13:42 22:12 22:12 MCV 96 H (84-94) fl MCH 33 H (28-32) pg MCHC (32-34) % RDW 12.5 L (13.2-15.2) % [place] % (Auto) (0.0-7.3) % [place] # (Auto) (0.0-0.8) K/mm3 PT (12.2-14.9) Sec. Fibrinogen 703 H 693 H (211-480) mg/dl Calcium (8.4-10.2) mg/dL 07/29/21 07/29/21 07/29/21 Range/Units 04:24 04:24 04:24 MCV 96 H (84-94) fl MCH 33 H (28-32) pg MCHC (32-34) % RDW 12.6 L (13.2-15.2) % [place] % (Auto) 8.8 H (0.0-7.3) % [place] # (Auto) (0.0-0.8) K/mm3 PT (12.2-14.9) Sec. Fibrinogen 693 H (211-480) mg/dl Calcium 7.6 L D (8.4-10.2) mg/dL Medications & Allergies - Medications Allergies/Adverse Reactions: Allergies No Known Allergies Allergy (Verified 07/22/21 14:11) Home Medications: Home Medications Medication Instructions Recorded Confirmed Last Taken Type Aspirin BABY CHEW TAB 81 mg PO DAILY 05/28/16 07/22/21 1 Day Ago History ~07/21/21 Famotidine [Pepcid] 20 mg PO BID #60 tablet 05/29/16 07/22/21 1 Day Ago Rx ~07/21/21 amLODIPine 5 mg PO QDAY #30 tablet 05/29/16 07/22/21 1 Day Ago Rx ~07/21/21 Cyclobenzaprine HCl [Flexeril 5 MG 5 mg PO QHS #20 tab 10/05/16 07/22/21 Unknown Rx TAB] Ibuprofen [Motrin 400 MG tab] 400 mg PO Q8H PRN #30 tablet 10/05/16 07/22/21 Unknown Rx Dextromethorphan Polistirex 30 mg PO BID PRN #150 [email or web address] 10/12/19 07/22/21 Unknown Rx [12-Hour Cough Relief] Active Medications: Generic Name Dose Route Start Last Admin Trade Name Freq PRN Reason Stop Dose Admin Acetaminophen 650 mg 07/28/21 11:00 Acetaminophen 325 Mg Tab PO Q6H PRN Pain, Mild (1-3) Hydrocodone Bitart/Acetaminophen 2 each 07/28/21 11:00 Hydrocodone/Acetaminophen 5-325 Mg Tab PO Q6H PRN Pain, Moderate (4-6) Albuterol 2.5 mg 07/22/21 16:44 Albuterol 2.5 Mg/3 Ml Nebu IH Q4HRT PRN Shortness Of Breath Amlodipine Besylate 5 mg 07/23/21 10:00 07/28/21 09:19 Amlodipine 5 Mg Tab PO 5 mg QDAY YOUNG Administration Aspirin 81 mg 07/23/21 10:00 07/28/21 09:19 Aspirin 81 Mg Tab Chew PO 81 mg DAILY YOUNG Administration Atorvastatin Calcium 40 mg 07/22/21 22:00 07/28/21 21:14 Atorvastatin 40 Mg Tab PO 40 mg QHS YOUNG Administration Cyclobenzaprine HCl 5 mg 07/22/21 22:00 07/28/21 21:14 Cyclobenzaprine 10 Mg Tab PO 5 mg QHS YOUNG Administration Dextrose 50 ml 07/22/21 21:32 Dextrose 50% In Water (25gm) 50 Ml Syringe IV Q30MIN PRN Hypoglycemia Protocol Famotidine 20 mg 07/22/21 22:00 07/28/21 21:14 Famotidine 20 Mg Tab PO 20 mg BID YOUNG Administration Guaifenesin 200 mg 07/23/21 01:14 07/27/21 20:46 Guaifenesin 100 Mg/5 Ml Oral Liqd PO 200 mg Q4H PRN Administration Cough Alteplase, Recombinant 10 mg/ 250 mls @ 10 mls/hr 07/28/21 10:32 07/28/21 13:29 Sodium Chloride EKOSDLUMEN 07/29/21 11:31 0 mls DIRECT STA Administration Alteplase, Recombinant 10 mg/ 250 mls @ 10 mls/hr 07/28/21 10:32 07/28/21 13:30 Sodium Chloride IV 07/29/21 11:31 0 mls DIRECT STA Administration Sodium Chloride 1,000 mls @ 30 mls/hr 07/28/21 11:00 07/28/21 13:31 Nacl 0.9% 1000 Ml SHEATH 0 mls DIRECT YOUNG Administration Sodium Chloride 1,000 mls @ 35 mls/hr 07/28/21 11:00 Nacl 0.9% 1000 Ml EKOSCLUMEN DIRECT YOUNG Sodium Chloride 1,000 mls @ 30 mls/hr 07/28/21 11:00 07/28/21 13:31 Nacl 0.9% 1000 Ml SHEATH 0 mls DIRECT YOUNG Administration Sodium Chloride 1,000 mls @ 35 mls/hr 07/28/21 11:00 Nacl 0.9% 1000 Ml EKOSCLUMEN DIRECT YOUNG Heparin Sodium/Sodium Chloride 25,000 unit in 500 mls @ 10 mls/hr 07/28/21 11:00 Heparin/ 0.45% Nacl-25,000 Unit/500 Ml SHEATH DIRECT YOUNG Protocol 500 UNITS/HR Heparin Sodium/Sodium Chloride 25,000 unit in 500 mls @ 10 mls/hr 07/28/21 11:00 07/28/21 13:31 Heparin/ 0.45% Nacl-25,000 Unit/500 Ml SHEATH 0 mls DIRECT YOUNG Administration Protocol 500 UNITS/HR Insulin Human Lispro 0 unit 07/23/21 00:00 07/29/21 06:07 Insulin Lispro 100 Unit/Ml SUB-Q Not Given Q6HR [facility] Protocol Metoprolol Tartrate 50 mg 07/25/21 11:00 07/28/21 21:14 Metoprolol Tartrate 50 Mg Tab PO 50 mg BID YOUNG Administration Morphine Sulfate 4 mg 07/28/21 11:30 07/29/21 06:06 Morphine 4 Mg/1 Ml Inj IV 4 mg Q4H PRN Administration Pain , Severe (7-10) Morphine Sulfate 2 mg 07/28/21 11:30 07/29/21 00:51 Morphine 2 Mg/1 Ml Inj IV 2 mg Q4H PRN Administration Pain, Moderate (4-6) Nitroglycerin 0.4 mg 07/22/21 16:45 Nitroglycerin 0.4 Mg Tab Subl SL .Q5MIN PRN Chest Pain Ondansetron HCl 4 mg 07/28/21 11:30 Ondansetron 4 Mg/2 Ml Inj IV Q8H PRN Nausea And Vomiting Sodium Chloride 10 ml 07/22/21 22:00 07/28/21 21:14 Sodium Chloride 0.9% 10 Ml Flush Syringe IV 10 ml BID YOUNG Administration Sodium Chloride 10 ml 07/22/21 16:44 Sodium Chloride 0.9% 10 Ml Flush Syringe IV PRN PRN LINE FLUSH Tramadol HCl 50 mg 07/22/21 21:25 Tramadol 50 Mg Tab PO Q6H PRN Pain, Moderate (4-6) HEART Score - HEART Score Troponin: Troponin T 0.105 ng/mL (0.00-0.029) H* 07/23/21 05:36
--- NOTE | 2021-07-29 10:25 | Consultation ---
History of Present Illness - Reason for Consult Consult date: 07/29/21 EKOS post op - History of Present Illness 71 y/o male transferred to unit post EKOS therapy Past History Past Medical History: atrial fib, diabetes, DVT (In 2005), hypertension Past Surgical History: hernia repair, Other (Left thyroid lobectomy) Social history: , lives with family. denies: smoking, alcohol abuse, prescription drug abuse Family history: diabetes, hypertension Medications and Allergies Allergies Allergy/AdvReac Type Severity Reaction Status Date / Time No Known Allergies Allergy Verified 07/22/21 14:11 Home Medications Medication Instructions Recorded Confirmed Last Taken Type Aspirin BABY CHEW TAB 81 mg PO DAILY 05/28/16 07/22/21 1 Day Ago History ~07/21/21 Famotidine [Pepcid] 20 mg PO BID #60 tablet 05/29/16 07/22/21 1 Day Ago Rx ~07/21/21 amLODIPine 5 mg PO QDAY #30 tablet 05/29/16 07/22/21 1 Day Ago Rx ~07/21/21 Cyclobenzaprine HCl [Flexeril 5 MG 5 mg PO QHS #20 tab 10/05/16 07/22/21 Unknown Rx TAB] Ibuprofen [Motrin 400 MG tab] 400 mg PO Q8H PRN #30 tablet 10/05/16 07/22/21 Unknown Rx Dextromethorphan Polistirex 30 mg PO BID PRN #150 [email or web address] 10/12/19 07/22/21 Unknown Rx [12-Hour Cough Relief] Active Meds: Active Medications Acetaminophen (Acetaminophen 325 Mg Tab) 650 mg PO Q6H PRN PRN Reason: Pain, Mild (1-3) Hydrocodone Bitart/Acetaminophen (Hydrocodone/Acetaminophen 5-325 Mg Tab) 2 each PO Q6H PRN PRN Reason: Pain, Moderate (4-6) Albuterol (Albuterol 2.5 Mg/3 Ml Nebu) 2.5 mg IH Q4HRT PRN PRN Reason: Shortness Of Breath Amlodipine Besylate (Amlodipine 5 Mg Tab) 5 mg PO QDAY [facility] Last Admin: 07/28/21 09:19 Dose: 5 mg Aspirin (Aspirin 81 Mg Tab Chew) 81 mg PO DAILY [facility] Last Admin: 07/28/21 09:19 Dose: 81 mg Atorvastatin Calcium (Atorvastatin 40 Mg Tab) 40 mg PO QHS YOUNG Last Admin: 07/28/21 21:14 Dose: 40 mg Cyclobenzaprine HCl (Cyclobenzaprine 10 Mg Tab) 5 mg PO QHS YOUNG Last Admin: 07/28/21 21:14 Dose: 5 mg Dextrose (Dextrose 50% In Water (25gm) 50 Ml Syringe) 50 ml IV Q30MIN PRN; Protocol PRN Reason: Hypoglycemia Famotidine (Famotidine 20 Mg Tab) 20 mg PO BID YOUNG Last Admin: 07/28/21 21:14 Dose: 20 mg Guaifenesin (Guaifenesin 100 Mg/5 Ml Oral Liqd) 200 mg PO Q4H PRN PRN Reason: Cough Last Admin: 07/27/21 20:46 Dose: 200 mg Alteplase, Recombinant 10 mg/ (Sodium Chloride) 250 mls @ 10 mls/hr EKOSDLUMEN DIRECT STA Stop: 07/29/21 11:31 Last Admin: 07/28/21 13:29 Dose: 0 mls Alteplase, Recombinant 10 mg/ (Sodium Chloride) 250 mls @ 10 mls/hr IV DIRECT STA Stop: 07/29/21 11:31 Last Admin: 07/28/21 13:30 Dose: 0 mls Sodium Chloride (Nacl 0.9% 1000 Ml) 1,000 mls @ 30 mls/hr SHEATH DIRECT YOUNG Last Admin: 07/28/21 13:31 Dose: 0 mls Sodium Chloride (Nacl 0.9% 1000 Ml) 1,000 mls @ 35 mls/hr EKOSCLUMEN DIRECT YOUNG Sodium Chloride (Nacl 0.9% 1000 Ml) 1,000 mls @ 30 mls/hr SHEATH DIRECT YOUNG Last Admin: 07/28/21 13:31 Dose: 0 mls Sodium Chloride (Nacl 0.9% 1000 Ml) 1,000 mls @ 35 mls/hr EKOSCLUMEN DIRECT YOUNG Heparin Sodium/Sodium Chloride (Heparin/ 0.45% Nacl-25,000 Unit/500 Ml) 25,000 unit in 500 mls @ 10 mls/hr SHEATH DIRECT YOUNG; Protocol Heparin Sodium/Sodium Chloride (Heparin/ 0.45% Nacl-25,000 Unit/500 Ml) 25,000 unit in 500 mls @ 10 mls/hr SHEATH DIRECT YOUNG; Protocol Last Admin: 07/28/21 13:31 Dose: 0 mls Insulin Human Lispro (Insulin Lispro 100 Unit/Ml) 0 unit SUB-Q Q6HR [facility]; Protocol Last Admin: 07/29/21 06:07 Dose: Not Given Metoprolol Tartrate (Metoprolol Tartrate 50 Mg Tab) 50 mg PO BID [facility] Last Admin: 07/28/21 21:14 Dose: 50 mg Morphine Sulfate (Morphine 4 Mg/1 Ml Inj) 4 mg IV Q4H PRN PRN Reason: Pain , Severe (7-10) Last Admin: 07/29/21 06:06 Dose: 4 mg Morphine Sulfate (Morphine 2 Mg/1 Ml Inj) 2 mg IV Q4H PRN PRN Reason: Pain, Moderate (4-6) Last Admin: 07/29/21 00:51 Dose: 2 mg Nitroglycerin (Nitroglycerin 0.4 Mg Tab Subl) 0.4 mg SL .Q5MIN PRN PRN Reason: Chest Pain Ondansetron HCl (Ondansetron 4 Mg/2 Ml Inj) 4 mg IV Q8H PRN PRN Reason: Nausea And Vomiting Sodium Chloride (Sodium Chloride 0.9% 10 Ml Flush Syringe) 10 ml IV BID [facility] Last Admin: 07/28/21 21:14 Dose: 10 ml Sodium Chloride (Sodium Chloride 0.9% 10 Ml Flush Syringe) 10 ml IV PRN PRN PRN Reason: LINE FLUSH Tramadol HCl (Tramadol 50 Mg Tab) 50 mg PO Q6H PRN PRN Reason: Pain, Moderate (4-6) Exam - Constitutional Vitals: Temp Pulse Resp BP Pulse Ox 99.3 F 87 18 131/77 98 07/29/21 07:16 07/29/21 08:00 07/29/21 08:00 07/29/21 08:00 07/29/21 08:40 Results - Labs CBC & Chem 7: 07/29/21 04:24 07/29/21 04:24 Labs: Abnormal lab results 07/28/21 07/28/21 07/28/21 Range/Units 12:17 12:17 13:42 MCV 96 H 95 H (84-94) fl MCH 33 H 34 H (28-32) pg MCHC 36 H (32-34) % RDW 12.6 L 12.3 L (13.2-15.2) % Lewis % (Auto) 9.5 H 8.6 H (0.0-7.3) % Lewis # (Auto) 1.0 H (0.0-0.8) K/mm3 PT 15.1 H (12.2-14.9) Sec. Fibrinogen 782 H (211-480) mg/dl Calcium (8.4-10.2) mg/dL 07/28/21 07/28/21 07/28/21 Range/Units 13:42 22:12 22:12 MCV 96 H (84-94) fl MCH 33 H (28-32) pg MCHC (32-34) % RDW 12.5 L (13.2-15.2) % Lewis % (Auto) (0.0-7.3) % Lewis # (Auto) (0.0-0.8) K/mm3 PT (12.2-14.9) Sec. Fibrinogen 703 H 693 H (211-480) mg/dl Calcium (8.4-10.2) mg/dL 07/29/21 07/29/21 07/29/21 Range/Units 04:24 04:24 04:24 MCV 96 H (84-94) fl MCH 33 H (28-32) pg MCHC (32-34) % RDW 12.6 L (13.2-15.2) % Lewis % (Auto) 8.8 H (0.0-7.3) % Lewis # (Auto) (0.0-0.8) K/mm3 PT (12.2-14.9) Sec. Fibrinogen 693 H (211-480) mg/dl Calcium 7.6 L D (8.4-10.2) mg/dL
[2021-07-29] MEDS ORDERED: HEPARIN 10,000 UNITS/10 ML VIAL IV PRN (12:21)
[2021-07-29] MEDS ORDERED: HEPARIN/ 0.45% NACL DRIP 25,000 UNIT/500 ML BAG IV SCH (13:00)
[2021-07-29] MEDS: METOPROLOL TARTRATE 50 MG TAB PO SCH ×2 (14:23→21:55)
[2021-07-29] MEDS: ASPIRIN 81 MG TAB CHEW PO SCH (14:23)
[2021-07-29] MEDS: amLODIPine 5 MG TAB PO SCH (14:24)
[2021-07-29] MEDS: FAMOTIDINE 20 MG TAB PO SCH ×2 (14:24→21:54)
--- NOTE | 2021-07-29 15:43 | Progress Note ---
<PHILLIP YOU - Last Filed: 07/29/21 15:38> Assessment and Plan Assessment and plan: This is a 71 year old male with with HTN, DM, metabolic syndrome, paroxysmal atrial fibrillation, with a history of a left lower extremity DVT (not on therapeutic anticoagulation) admitted with NSTEMI and saddle PE s/p EKOS Neuro: Near syncope, h/o vascular dementia and cerebral atherosclerosis -patient reports feeling lightheadedness and dizziness while ambulating prior to coming to ED -Neurology consulted, appreciate recommendations -Avoid delirium -Reorientation as needed -Maintain sleep-wake cycle -As needed analgesia -CT head shows no acute intercranial abnormality -MRI brain shows advanced microvascular ischemic changes, diffusion weight scans negative with no indication of recent ischemic injury -Continue aspirin and supportive care Cardiac: NSTEMI, h/o HTN, Paroxysmal A. fib, HLD, diastolic CHF -Cardiology consulted, appreciate recommendations -Blood pressure monitoring per protocol -07/22/2021 Echo shows EF 55 to 60%. Moderate pulmonary hypertension -07/26/2021 Lexiscan MPI stress test negative for signs of ischemia -Continue aspirin, lipitor, amlodipine, metoprolol -currently on heparin gtt Respiratory: Acute hypoxic respiratory failure -CCM consulted, appreciate recommendations -Currently on NC -Pulm hygenie -SPO2 monitoring GI: MO -24 hours -602 mL -PPI -Cardiac diet -BR: colace : NAD -Strict intake and output -Renally dose medications -Avoid nephrotoxic medications -Daily weights -Trend BMP ID: NAD -Monitor WBC and temperature curve Endo: h/o [id number] diabetes type 2 -Hemoglobin A1c 5.5 -Avoid hypoglycemia -SSI -Accu-checks AC at bedtime Heme: Saddle PE s/p EKOS, h/o DVT (not on anticoagulation ) -CT abdomen/pelvis showed very large amount of pulmonary emboli including a saddle emboli with possible associated right heart strain, possible evolving bilateral upper lobe pulmonary infarct versus pneumonia with no acute findings in abdomen or pelvis -Vascular surgery consulted, appreciate recommendations -S/p EKOS on 07/28 -Heparin drip -Trend CBC -Transfuse hemoglobin less than 7 -Monitor for signs of bleeding -SCDs to BLE while in bed The high probability of a clinically significant, sudden or life threatening deterioration of the [pulmonary] system(s) required my full and direct attention, intervention and personal management. The aggregate critical care time was [60] minutes. This time is in addition to time spent performing report ed procedures but includes the following: [x] Data Review and interpretation [x] Patient assessment and monitoring of vital signs [x] Documentation [x] Medication orders and management Disposition Plan: transfer to the floor Total Time Spent with Patient (Minutes): 60 History Interval history: This is a 71-year-old male with HTN, DM, metabolic syndrome, paroxysmal atrial fibrillation, diastolic CHF, HLD with a history of a left lower extremity DVT (not on therapeutic anticoagulation) who presented to the emergency department on 07/22 with complaints of "I feel weak and I think I passed out", generalized weakness of the past week, decreased exercise tolerance, dyspnea on exertion, dyspnea at rest, orthopnea, paroxysmal nocturnal dyspnea and shortness of breath with subjective weight gain over the past week. Patient also stated that he had a sudden onset of worsening weakness with subsequent dizziness and loss of consciousness and presented to [facility] for further evaluation. In the emergency department patient was found to have NSTEMI and clinical symptoms consistent with diastolic congestive heart failure. Patient was admitted to the hospital service with telemetry for initiated on ACS and CHF protocol with cardiology consult. Hospital course to date: 07/29: transfer to icu post EKOS yesterday. Had catheter removed today and will be transferred to the floor today. No acute events. 07/28: No acute events overnight. 07/27: No acute events overnight. 07/26:Patient continues to have night time cough and had a tmax of 101.4. Has no other constitutional symptoms besides cough. Patient on the way to stress test. 07/25: No acute events overnight. Patient reports cough most prominent at night and nonproductive. Aware of fever overnight. Has no other constitutional symptoms besides cough. Noted to have fever and night of admission. 07/24: No acute events overnight. Patient reports feeling drowsy. Denies headache, chest pain or worsening shortness of breath at this time. Updated with care plan. Voiced understanding. 07/23: No acute events overnight. Patient reports having fever and cough x1 week. He does have atrial fibrillation and opted to not take anticoagulation due to side effects. Has no complaints at this time. Hospitalist Physical - Constitutional Vitals: Temp Pulse Resp BP Pulse Ox 98.9 F 96 H 21 157/85 98 07/29/21 11:15 07/29/21 14:24 07/29/21 11:45 07/29/21 14:24 07/29/21 11:45 General appearance: Present: no acute distress - EENT Eyes: Present: PERRL, EOM intact ENT: hearing intact, clear oral mucosa, dentition normal - Neck Neck: Present: normal ROM - Respiratory Respiratory effort: normal Respiratory: right: wheezing, bilateral: diminished - Cardiovascular Rhythm: regular Heart Sounds: Present: S1 & S2. Absent: systolic murmur, diastolic murmur - Extremities Extremities: no ischemia, pulses intact, pulses symmetrical, No edema, normal temperature, normal color, Full ROM Peripheral Pulses: within normal limits - Abdominal General gastrointestinal: soft, non-tender, non-distended, normal bowel sounds - Integumentary Integumentary: Present: warm, dry - Psychiatric Psychiatric: cooperative - Neurologic Neurologic: CNII-XII intact, no focal deficits, moves all extremities - Allied Health Allied health notes reviewed: nursing, RT, social work HEART Score - HEART Score Troponin: Troponin T 0.105 ng/mL (0.00-0.029) H* 07/23/21 05:36 Results - Labs CBC & Chem 7: 07/29/21 04:24 07/29/21 04:24 Labs: Laboratory Last Values WBC 8.7 K/mm3 (4.5-11.0) 07/29/21 04:24 RBC 4.21 M/mm3 (3.65-5.03) 07/29/21 04:24 Hgb 13.8 gm/dl (11.8-15.2) 07/29/21 04:24 Hct 40.6 % (35.5-45.6) 07/29/21 04:24 MCV 96 fl (84-94) H 07/29/21 04:24 MCH 33 pg (28-32) H 07/29/21 04:24 MCHC 34 % (32-34) 07/29/21 04:24 RDW 12.6 % (13.2-15.2) L 07/29/21 04:24 Plt Count 224 K/mm3 (140-440) 07/29/21 04:24 Lymph % (Auto) 26.6 % (13.4-35.0) 07/29/21 04:24 [place] % (Auto) 8.8 % (0.0-7.3) H 07/29/21 04:24 Eos % (Auto) 1.5 % (0.0-4.3) 07/29/21 04:24 Baso % (Auto) 1.2 % (0.0-1.8) 07/29/21 04:24 Lymph # (Auto) 2.3 K/mm3 (1.2-5.4) 07/29/21 04:24 [place] # (Auto) 0.8 K/mm3 (0.0-0.8) 07/29/21 04:24 Eos # (Auto) 0.1 K/mm3 (0.0-0.4) 07/29/21 04:24 Baso # (Auto) 0.1 K/mm3 (0.0-0.1) 07/29/21 04:24 Seg Neutrophils % 61.9 % (40.0-70.0) 07/29/21 04:24 Seg Neutrophils # 5.4 K/mm3 (1.8-7.7) 07/29/21 04:24 PT 15.1 Sec. (12.2-14.9) H 07/28/21 12:17 INR 1.07 (0.87-1.13) 07/28/21 12:17 APTT 34.0 Sec. (24.2-36.6) 07/28/21 12:17 Fibrinogen 693 mg/dl (211-480) H 07/29/21 04:24 Heparin Anti-Xa Level 0.30 U.I./ml (0.3-0.7) 07/29/21 04:24 Sodium 137 mmol/L (137-145) 07/29/21 04:24 Potassium 4.2 mmol/L (3.6-5.0) 07/29/21 04:24 Chloride 100.4 mmol/L (98-107) 07/29/21 04:24 Carbon Dioxide 24 mmol/L (22-30) 07/29/21 04:24 Anion Gap 17 mmol/L 07/29/21 04:24 BUN 16 mg/dL (9-20) 07/29/21 04:24 Creatinine 1.1 mg/dL (0.8-1.3) 07/29/21 04:24 Estimated GFR > 60 ml/min 07/29/21 04:24 BUN/Creatinine Ratio 15 % 07/29/21 04:24 Glucose 95 mg/dL (75-100) 07/29/21 04:24 POC Glucose 83 mg/dL (70-105) 07/29/21 10:50 Hemoglobin A1c 5.5 % (4-6) 07/25/21 11:25 Lactic Acid 1.60 mmol/L (0.7-2.0) 07/22/21 12:53 Calcium 7.6 mg/dL (8.4-10.2) L D 07/29/21 04:24 Total Bilirubin 0.90 mg/dL (0.1-1.2) 07/25/21 11:25 AST 32 units/L (5-40) 07/25/21 11:25 ALT 12 units/L (7-56) 07/25/21 11:25 Alkaline Phosphatase 66 units/L (35-129) 07/25/21 11:25 Troponin T 0.105 ng/mL (0.00-0.029) H* 07/23/21 05:36 NT-Pro-B Natriuret Pep 812.1 pg/mL (0-900) 07/23/21 00:16 Total Protein 7.5 g/dL (6.3-8.2) 07/25/21 11:25 Albumin 3.9 g/dL (3.9-5) 07/25/21 11:25 Albumin/Globulin Ratio 1.1 % 07/25/21 11:25 Triglycerides 161 mg/dL (2-149) H 07/22/21 12:53 Cholesterol 234 mg/dL (50-199) H 07/22/21 12:53 LDL Cholesterol Direct 174 mg/dL (50-130) H 07/22/21 12:53 HDL Cholesterol 40 mg/dL (40-59) 07/22/21 12:53 Cholesterol/HDL Ratio 5.85 % 07/22/21 12:53 Vitamin B12 348.5 pg/mL (211-911) 07/25/21 11:25 TSH 3.420 mlU/mL (0.270-4.200) 07/25/21 11:25 Urine Color Yellow (Yellow) 07/23/21 14:33 Urine Turbidity Clear (Clear) 07/23/21 14:33 Urine pH 5.0 (5.0-7.0) 07/23/21 14:33 Ur Specific [place] 1.013 (1.003-1.030) 07/23/21 14:33 Urine Protein <15 mg/dl mg/dL (Negative) 07/23/21 14:33 Urine Glucose (UA) Neg mg/dL (Negative) 07/23/21 14:33 Urine Ketones Neg mg/dL (Negative) 07/23/21 14:33 Urine Blood Sm (Negative) 07/23/21 14:33 Urine Nitrite Neg (Negative) 07/23/21 14:33 Urine Bilirubin Neg (Negative) 07/23/21 14:33 Urine Urobilinogen < 2.0 mg/dL (<2.0) 07/23/21 14:33 Ur Leukocyte Esterase Neg (Negative) 07/23/21 14:33 Urine WBC (Auto) 1.0 /HPF (0.0-6.0) 07/23/21 14:33 Urine RBC (Auto) 1.0 /HPF (0.0-6.0) 07/23/21 14:33 Urine Mucus 1+ /HPF 07/23/21 14:33 Coronavirus (PCR) Negative (Negative) 07/23/21 01:08 Anne/IV: Voiding Method Condom Catheter Active Medications - Current Medications Current Medications: Generic Name Dose Route Start Last Admin Trade Name Freq PRN Reason Stop Dose Admin Acetaminophen 650 mg 07/28/21 11:00 Acetaminophen 325 Mg Tab PO Q6H PRN Pain, Mild (1-3) Hydrocodone Bitart/Acetaminophen 2 each 07/28/21 11:00 Hydrocodone/Acetaminophen 5-325 Mg Tab PO Q6H PRN Pain, Moderate (4-6) Albuterol 2.5 mg 07/22/21 16:44 Albuterol 2.5 Mg/3 Ml Nebu IH Q4HRT PRN Shortness Of Breath Amlodipine Besylate 5 mg 07/23/21 10:00 07/29/21 14:24 Amlodipine 5 Mg Tab PO 5 mg QDAY YOUNG Administration Aspirin 81 mg 07/23/21 10:00 07/29/21 14:23 Aspirin 81 Mg Tab Chew PO 81 mg DAILY YOUNG Administration Atorvastatin Calcium 40 mg 07/22/21 22:00 07/28/21 21:14 Atorvastatin 40 Mg Tab PO 40 mg QHS [facility] Administration Cyclobenzaprine HCl 5 mg 07/22/21 22:00 07/28/21 21:14 Cyclobenzaprine 10 Mg Tab PO 5 mg QHS [facility] Administration Dextrose 50 ml 07/22/21 21:32 Dextrose 50% In Water (25gm) 50 Ml Syringe IV Q30MIN PRN Hypoglycemia Protocol Docusate Sodium 100 mg 07/29/21 22:00 Docusate Sodium 100 Mg Cap PO BID [facility] Famotidine 20 mg 07/22/21 22:00 07/29/21 14:24 Famotidine 20 Mg Tab PO 20 mg BID [facility] Administration Guaifenesin 200 mg 07/23/21 01:14 07/27/21 20:46 Guaifenesin 100 Mg/5 Ml Oral Liqd PO 200 mg Q4H PRN Administration Cough Heparin Sodium (Porcine) 5,000 unit 07/29/21 12:21 Heparin 10,000 Units/10 Ml Vial IV Q6H PRN Anti-Xa Assay < 0.1 units/ml Heparin Sodium/Sodium Chloride 25,000 unit in 500 mls @ 24 mls/hr 07/29/21 13:00 07/29/21 13:45 Heparin/ 0.45% Nacl-25,000 Unit/500 Ml IV 1,200 units/hr TITR YOUNG 24 mls/hr Administration Protocol 1,200 UNITS/HR Insulin Human Lispro 0 unit 07/23/21 00:00 07/29/21 06:07 Insulin Lispro 100 Unit/Ml SUB-Q Not Given Q6HR [facility] Protocol Metoprolol Tartrate 50 mg 07/25/21 11:00 07/29/21 14:23 Metoprolol Tartrate 50 Mg Tab PO 50 mg BID [facility] Administration Morphine Sulfate 4 mg 07/28/21 11:30 07/29/21 06:06 Morphine 4 Mg/1 Ml Inj IV 4 mg Q4H PRN Administration Pain , Severe (7-10) Morphine Sulfate 2 mg 07/28/21 11:30 07/29/21 00:51 Morphine 2 Mg/1 Ml Inj IV 2 mg Q4H PRN Administration Pain, Moderate (4-6) Nitroglycerin 0.4 mg 07/22/21 16:45 Nitroglycerin 0.4 Mg Tab Subl SL .Q5MIN PRN Chest Pain Ondansetron HCl 4 mg 07/28/21 11:30 Ondansetron 4 Mg/2 Ml Inj IV Q8H PRN Nausea And Vomiting Sodium Chloride 10 ml 07/22/21 22:00 07/29/21 14:24 Sodium Chloride 0.9% 10 Ml Flush Syringe IV 10 ml BID YOUNG Administration Sodium Chloride 10 ml 07/22/21 16:44 Sodium Chloride 0.9% 10 Ml Flush Syringe IV PRN PRN LINE FLUSH Tramadol HCl 50 mg 07/22/21 21:25 Tramadol 50 Mg Tab PO Q6H PRN Pain, Moderate (4-6) Nutrition/Malnutrition Assess - Dietary Evaluation Nutrition/Malnutrition Findings: Nutrition Notes Start: 07/29/21 15:15 Freq: Status: Active Protocol: Document 07/29/21 15:15 HEATH (Rec: 07/29/21 15:26 HEATH [id number]) Nutrition Notes Need for Assessment generated from: LOS Initial or Follow up Assessment Current Diagnosis Diabetes,Hypertension,Heart Failure,Hyperlipidemia Other Pertinent Diagnosis [place] Pulmonary Embolism, CHF , NSTEMI, Atrial Fibrilation, L-LE DVT, ... Current Diet Cardiac Diet ( from D 07/29). Labs/Tests 07/29: WNL. Pertinent Medications 07/29: Nutritionally unremarkable. 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 Weight Status Obese Subjective/Other Information RD consult for LOS Assessment. Pt's PO intake of meals has been Fair (50-75%), according to ADL notes. Pt is on Nasal Cannula, O2 saturation @ 98%, according to Physical Assessment History notes. Procedure on 07/29: Bilateral Pulmonary Angiography, Thrombolysis Catheter removal, well tolerated, according to Progress notes. Percent of energy/protein needs met: Prescribed Cardiac Diet provides for energy/protein needs (2,230 Kcal/85 g) during LOS. Burn Absent Trauma Absent GI Symptoms None Food Allergy No Skin Integrity/Comment Assessment WNL. Current % PO Fair (50-74%) Minimum of two criteria No #1 Nutrition Diagnosis No nutrition diagnosis at this time Is patient on ventilator? No Is Patient Ambulatory and/or Out of Bed Yes REE-([facility]-ambulatory/OOB) [ 2125.612 NUTR.MSJOOB] Kcal/Kg value to use for calculation 18 Approximate Energy Requirements Using 2326 kcal/Kg Calculation Used for Recommendations Kcal/kg Additional Notes Protein: 1-1.2 g/Kg AdjBW; 109 -131 g/day. Fluids: 1 ml/Kcal, or as per MD. Nutrition Intervention Change Diet Order: Continue Cardiac Diet. Revisit per MD consult or patient Sign Off request: Additional Comments Continue monitoring food tolerance, %PO intake of meals , and BM. <THERESA AVILES - Last Filed: 08/05/21 08:57> Assessment and Plan Assessment and plan: I saw and evaluated the patient. Discussed with the nurse practitioner and agree with their findings and plan as documented in this note. Hospitalist Physical - Constitutional Vitals: Temp Pulse Resp BP Pulse Ox 98.3 F 76 18 118/65 96 07/30/21 12:05 07/30/21 14:00 07/30/21 14:00 07/30/21 12:05 07/30/21 14:00 HEART Score - HEART Score Troponin: Troponin T 0.105 ng/mL (0.00-0.029) H* 07/23/21 05:36 Results - Labs CBC & Chem 7: 07/30/21 07:00 07/30/21 05:55 Labs: Laboratory Last Values WBC 8.6 K/mm3 (4.5-11.0) 07/30/21 07:00 RBC 4.02 M/mm3 (3.65-5.03) 07/30/21 07:00 Hgb 13.4 gm/dl (11.8-15.2) 07/30/21 07:00 Hct 38.4 % (35.5-45.6) 07/30/21 07:00 MCV 96 fl (84-94) H 07/30/21 07:00 MCH 33 pg (28-32) H 07/30/21 07:00 MCHC 35 % (32-34) H 07/30/21 07:00 RDW 12.2 % (13.2-15.2) L 07/30/21 07:00 Plt Count 214 K/mm3 (140-440) 07/30/21 07:00 Lymph % (Auto) 26.6 % (13.4-35.0) 07/29/21 04:24 [place] % (Auto) 8.8 % (0.0-7.3) H 07/29/21 04:24 Eos % (Auto) 1.5 % (0.0-4.3) 07/29/21 04:24 Baso % (Auto) 1.2 % (0.0-1.8) 07/29/21 04:24 Lymph # (Auto) 2.3 K/mm3 (1.2-5.4) 07/29/21 04:24 [place] # (Auto) 0.8 K/mm3 (0.0-0.8) 07/29/21 04:24 Eos # (Auto) 0.1 K/mm3 (0.0-0.4) 07/29/21 04:24 Baso # (Auto) 0.1 K/mm3 (0.0-0.1) 07/29/21 04:24 Seg Neutrophils % 61.9 % (40.0-70.0) 07/29/21 04:24 Seg Neutrophils # 5.4 K/mm3 (1.8-7.7) 07/29/21 04:24 PT 15.1 Sec. (12.2-14.9) H 07/28/21 12:17 INR 1.07 (0.87-1.13) 07/28/21 12:17 APTT 34.0 Sec. (24.2-36.6) 07/28/21 12:17 Fibrinogen 693 mg/dl (211-480) H 07/29/21 04:24 Heparin Anti-Xa Level 0.17 U.I./ml (0.3-0.7) L 07/30/21 07:00 Sodium 138 mmol/L (137-145) 07/30/21 05:55 Potassium 4.9 mmol/L (3.6-5.0) 07/30/21 05:55 Chloride 101.8 mmol/L (98-107) 07/30/21 05:55 Carbon Dioxide 25 mmol/L (22-30) 07/30/21 05:55 Anion Gap 16 mmol/L 07/30/21 05:55 BUN 14 mg/dL (9-20) 07/30/21 05:55 Creatinine 1.1 mg/dL (0.8-1.3) 07/30/21 05:55 Estimated GFR > 60 ml/min 07/30/21 05:55 BUN/Creatinine Ratio 13 % 07/30/21 05:55 Glucose 95 mg/dL (75-100) 07/30/21 05:55 POC Glucose 96 mg/dL (70-105) 07/30/21 12:02 Hemoglobin A1c 5.5 % (4-6) 07/25/21 11:25 Lactic Acid 1.60 mmol/L (0.7-2.0) 07/22/21 12:53 Calcium 7.9 mg/dL (8.4-10.2) L 07/30/21 05:55 Total Bilirubin 0.90 mg/dL (0.1-1.2) 07/25/21 11:25 AST 32 units/L (5-40) 07/25/21 11:25 ALT 12 units/L (7-56) 07/25/21 11:25 Alkaline Phosphatase 66 units/L (35-129) 07/25/21 11:25 Troponin T 0.105 ng/mL (0.00-0.029) H* 07/23/21 05:36 NT-Pro-B Natriuret Pep 812.1 pg/mL (0-900) 07/23/21 00:16 Total Protein 7.5 g/dL (6.3-8.2) 07/25/21 11:25 Albumin 3.9 g/dL (3.9-5) 07/25/21 11:25 Albumin/Globulin Ratio 1.1 % 07/25/21 11:25 Triglycerides 161 mg/dL (2-149) H 07/22/21 12:53 Cholesterol 234 mg/dL (50-199) H 07/22/21 12:53 LDL Cholesterol Direct 174 mg/dL (50-130) H 07/22/21 12:53 HDL Cholesterol 40 mg/dL (40-59) 07/22/21 12:53 Cholesterol/HDL Ratio 5.85 % 07/22/21 12:53 Vitamin B12 348.5 pg/mL (211-911) 07/25/21 11:25 TSH 3.420 mlU/mL (0.270-4.200) 07/25/21 11:25 Urine Color Yellow (Yellow) 07/23/21 14:33 Urine Turbidity Clear (Clear) 07/23/21 14:33 Urine pH 5.0 (5.0-7.0) 07/23/21 14:33 Ur Specific [place] 1.013 (1.003-1.030) 07/23/21 14:33 Urine Protein <15 mg/dl mg/dL (Negative) 07/23/21 14:33 Urine Glucose (UA) Neg mg/dL (Negative) 07/23/21 14:33 Urine Ketones Neg mg/dL (Negative) 07/23/21 14:33 Urine Blood Sm (Negative) 07/23/21 14:33 Urine Nitrite Neg (Negative) 07/23/21 14:33 Urine Bilirubin Neg (Negative) 07/23/21 14:33 Urine Urobilinogen < 2.0 mg/dL (<2.0) 07/23/21 14:33 Ur Leukocyte Esterase Neg (Negative) 07/23/21 14:33 Urine WBC (Auto) 1.0 /HPF (0.0-6.0) 07/23/21 14:33 Urine RBC (Auto) 1.0 /HPF (0.0-6.0) 07/23/21 14:33 Urine Mucus 1+ /HPF 07/23/21 14:33 Coronavirus (PCR) Negative (Negative) 07/23/21 01:08 Anne/IV: Voiding Method Urinal Nutrition/Malnutrition Assess - Dietary Evaluation Nutrition/Malnutrition Findings: Nutrition Notes Start: 07/29/21 15:15 Freq: Status: Discharge Protocol: Document 07/29/21 15:15 HEATH (Rec: 07/29/21 15:26 HEATH [id number]) Nutrition Notes Need for Assessment generated from: LOS Initial or Follow up Assessment Current Diagnosis Diabetes,Hypertension,Heart Failure,Hyperlipidemia Other Pertinent Diagnosis [place] Pulmonary Embolism, CHF , NSTEMI, Atrial Fibrilation, L-LE DVT, ... Current Diet Cardiac Diet ( from D 07/29). Labs/Tests 07/29: WNL. Pertinent Medications 07/29: Nutritionally unremarkable. 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 Weight Status Obese Subjective/Other Information RD consult for LOS Assessment. Pt's PO intake of meals has been Fair (50-75%), according to ADL notes. Pt is on Nasal Cannula, O2 saturation @ 98%, according to Physical Assessment History notes. Procedure on 07/29: Bilateral Pulmonary Angiography, Thrombolysis Catheter removal, well tolerated, according to Progress notes. Percent of energy/protein needs met: Prescribed Cardiac Diet provides for energy/protein needs (2,230 Kcal/85 g) during LOS. Burn Absent Trauma Absent GI Symptoms None Food Allergy No Skin Integrity/Comment Assessment WNL. Current % PO Fair (50-74%) Minimum of two criteria No #1 Nutrition Diagnosis No nutrition diagnosis at this time Is patient on ventilator? No Is Patient Ambulatory and/or Out of Bed Yes REE-([facility]-ambulatory/OOB) [ 2778.919 NUTR.MSJOOB] Kcal/Kg value to use for calculation 18 Approximate Energy Requirements Using 2326 kcal/Kg Calculation Used for Recommendations Kcal/kg Additional Notes Protein: 1-1.2 g/Kg AdjBW; 109 -131 g/day. Fluids: 1 ml/Kcal, or as per MD. Nutrition Intervention Change Diet Order: Continue Cardiac Diet. Revisit per MD consult or patient Sign Off request: Additional Comments Continue monitoring food tolerance, %PO intake of meals , and BM.
[2021-07-29] MEDS: guaiFENesin 100 MG/5 ML ORAL LIQD PO PRN (17:13)
[2021-07-29] MEDS: CYCLOBENZAPRINE 10 MG TAB PO SCH (21:53)
[2021-07-29] MEDS: DOCUSATE SODIUM 100 MG CAP PO SCH (21:54)
[2021-07-30] MEDS: INSULIN LISPRO 100 UNIT/ML SUB-Q SCH ×3 (00:05→12:28)
[2021-07-30 06:46] LABS: BUN/Creatinine Ratio 13; Blood Urea Nitrogen 14 mg/dL (9-20); Calcium 7.9 mg/dL (8.4-10.2); Hemolysis Index 11
[2021-07-30 07:12] LABS: Hematocrit 38.4 % (35.5-45.6); Hemoglobin 13.4 gm/dl (11.8-15.2); Mean Corpuscular HGB Conc 35 % (32-34); Mean Corpuscular Volume 96 fl (84-94); Platelet Count 214 K/mm3 (140-440); Red Blood Count 4.02 M/mm3 (3.65-5.03); Red Cell Distribution Width 12.2 % (13.2-15.2)
[2021-07-30] MEDS ORDERED: CALCIUM CHLORIDE 1,000 MG/10 ML SYRINGE IV ONE (07:39)
[2021-07-30] MEDS ORDERED: CALCIUM CHLORIDE 1,000 MG in SODIUM CHLORIDE 0.9% 100 ML IV ONE (09:00)
[2021-07-30] MEDS: amLODIPine 5 MG TAB PO SCH (09:31)
[2021-07-30] MEDS: DOCUSATE SODIUM 100 MG CAP PO SCH (09:32)
[2021-07-30] MEDS: ASPIRIN 81 MG TAB CHEW PO SCH (09:32)
[2021-07-30] MEDS: METOPROLOL TARTRATE 50 MG TAB PO SCH (09:33)
[2021-07-30] MEDS: FAMOTIDINE 20 MG TAB PO SCH (09:34)
[2021-07-30] MEDS ORDERED: APIXABAN 5 MG TAB PO SCH ×2 (10:00)
--- NOTE | 2021-07-30 11:22 | Progress Note ---
Assessment and Plan Impression: Pulmonary embolism s/p EKOS and thrombolysis. Congestive heart failure Atrial fibrillation Diabetes mellitus. Recommendations: Patient seems to be doing well post thrombolysis of pulmonary embolism. Will need anticoagulation for long-term for pulmonary embolism and as well as for atrial fibrillation. Will follow. Subjective Date of service: 07/30/21 Principal diagnosis: SOB/Dizziness/diplopia Interval history: Patient doing quite well. On room air comfortable. Had EKOS catheter removed yesterday. Pulmonary angiogram showed resolution of all major pulmonary emboli. Objective - Exam Narrative Exam: GENERAL: Well-developed well-nourished. In no acute distress. HEENT: 3 L nasal cannula. CHEST/LUNGS: Coarse breath sounds bilaterally. HEART/CARDIOVASCULAR: Irregular irregular rhythm. No murmur, rubs or gallops appreciated. ABDOMEN: +BS. NT/ND. NEURO: No focal motor deficit. Follows all commands. EXTREMITIES: No cyanosis, clubbing or edema. PSYCH: Cooperative. Vital Signs - 12hr 07/30/21 07/30/21 07/30/21 02:00 03:29 03:30 Temperature 99.2 F Pulse Rate 85 Pulse Rate [ 85 From Monitor] Respiratory 20 16 Rate Blood Pressure 135/70 O2 Sat by Pulse 98 89 93 Oximetry 07/30/21 07/30/21 07/30/21 04:00 06:00 07:38 Temperature 98.8 F Pulse Rate 82 82 Pulse Rate [ 85 From Monitor] Respiratory 20 14 Rate Blood Pressure 142/77 O2 Sat by Pulse 98 97 Oximetry 07/30/21 10:00 Temperature Pulse Rate Pulse Rate [ 76 From Monitor] Respiratory 18 Rate Blood Pressure O2 Sat by Pulse 96 Oximetry Gastrointestinal: normoactive bowel sounds Integumentary: normal CBC and BMP: 07/30/21 07:00 07/30/21 05:55 ABG, PT/INR, D-dimer: PT/INR, D-dimer PT 15.1 Sec. (12.2-14.9) H 07/28/21 12:17 INR 1.07 (0.87-1.13) 07/28/21 12:17 Abnormal lab findings: Abnormal Labs 07/22/21 07/22/21 07/22/21 12:53 12:53 17:01 MCV 97 H MCH 33 H MCHC RDW 12.8 L [place] % (Auto) 8.1 H [place] # (Auto) PT INR Fibrinogen Heparin Anti-Xa Level Creatinine Glucose 117 H POC Glucose Calcium Troponin T 0.051 H Triglycerides 161 H Cholesterol 234 H LDL Cholesterol Direct 174 H 07/22/21 07/23/21 07/23/21 18:51 00:16 01:45 MCV MCH MCHC RDW [place] % (Auto) [place] # (Auto) PT INR Fibrinogen Heparin Anti-Xa Level Creatinine Glucose POC Glucose 114 H Calcium Troponin T 0.073 H D 0.121 H* D Triglycerides Cholesterol LDL Cholesterol Direct 07/23/21 07/23/21 07/24/21 05:36 06:30 07:20 MCV 97 H MCH 33 H MCHC RDW 12.6 L [place] % (Auto) [place] # (Auto) PT INR Fibrinogen Heparin Anti-Xa Level Creatinine Glucose POC Glucose 112 H Calcium Troponin T 0.105 H* Triglycerides Cholesterol LDL Cholesterol Direct 07/24/21 07/24/21 07/24/21 07:20 11:53 16:14 MCV MCH MCHC RDW [place] % (Auto) [place] # (Auto) PT INR Fibrinogen Heparin Anti-Xa Level Creatinine 1.4 H Glucose POC Glucose 123 H 116 H Calcium Troponin T Triglycerides Cholesterol LDL Cholesterol Direct 07/24/21 07/25/21 07/25/21 21:04 05:42 11:25 MCV MCH MCHC RDW [place] % (Auto) [place] # (Auto) PT INR Fibrinogen Heparin Anti-Xa Level Creatinine Glucose 120 H POC Glucose 152 H 112 H Calcium Troponin T Triglycerides Cholesterol LDL Cholesterol Direct 07/25/21 07/25/21 07/26/21 11:38 16:07 05:13 MCV MCH MCHC RDW [place] % (Auto) [place] # (Auto) PT INR Fibrinogen Heparin Anti-Xa Level Creatinine Glucose POC Glucose 125 H 152 H 113 H Calcium Troponin T Triglycerides Cholesterol LDL Cholesterol Direct 07/26/21 07/26/21 07/27/21 08:12 08:26 01:41 MCV 96 H MCH 33 H MCHC RDW 12.7 L [place] % (Auto) [place] # (Auto) PT INR Fibrinogen Heparin Anti-Xa Level Creatinine Glucose POC Glucose 109 H 111 H Calcium Troponin T Triglycerides Cholesterol LDL Cholesterol Direct 07/27/21 07/27/21 07/27/21 05:26 05:35 05:35 MCV 97 H MCH 33 H MCHC RDW 12.5 L [place] % (Auto) [place] # (Auto) PT INR Fibrinogen Heparin Anti-Xa Level Creatinine Glucose 103 H POC Glucose 110 H Calcium 7.9 L Troponin T Triglycerides Cholesterol LDL Cholesterol Direct 07/27/21 07/27/21 07/27/21 10:32 11:40 17:57 MCV MCH MCHC RDW [place] % (Auto) [place] # (Auto) PT 17.7 H INR 1.30 H Fibrinogen Heparin Anti-Xa Level 1.42 H Creatinine Glucose POC Glucose 108 H Calcium Troponin T Triglycerides Cholesterol LDL Cholesterol Direct 07/28/21 07/28/21 07/28/21 05:28 12:17 12:17 MCV 96 H MCH 33 H MCHC RDW 12.6 L [place] % (Auto) 9.5 H [place] # (Auto) 1.0 H PT 15.1 H INR Fibrinogen 782 H Heparin Anti-Xa Level 0.76 H Creatinine Glucose POC Glucose Calcium Troponin T Triglycerides Cholesterol LDL Cholesterol Direct 07/28/21 07/28/21 07/28/21 13:42 13:42 22:12 MCV 95 H 96 H MCH 34 H 33 H MCHC 36 H RDW 12.3 L 12.5 L [place] % (Auto) 8.6 H [place] # (Auto) PT INR Fibrinogen 703 H Heparin Anti-Xa Level Creatinine Glucose POC Glucose Calcium Troponin T Triglycerides Cholesterol LDL Cholesterol Direct 07/28/21 07/29/21 07/29/21 22:12 04:24 04:24 MCV 96 H MCH 33 H MCHC RDW 12.6 L [place] % (Auto) 8.8 H [place] # (Auto) PT INR Fibrinogen 693 H 693 H Heparin Anti-Xa Level Creatinine Glucose POC Glucose Calcium Troponin T Triglycerides Cholesterol LDL Cholesterol Direct 07/29/21 07/29/21 07/29/21 04:24 16:17 21:00 MCV MCH MCHC RDW [place] % (Auto) [place] # (Auto) PT INR Fibrinogen Heparin Anti-Xa Level 0.22 L Creatinine Glucose POC Glucose 125 H Calcium 7.6 L D Troponin T Triglycerides Cholesterol LDL Cholesterol Direct 07/30/21 07/30/21 07/30/21 05:55 07:00 07:00 MCV 96 H MCH 33 H MCHC 35 H RDW 12.2 L [place] % (Auto) [place] # (Auto) PT INR Fibrinogen Heparin Anti-Xa Level 0.17 L Creatinine Glucose POC Glucose Calcium 7.9 L Troponin T Triglycerides Cholesterol LDL Cholesterol Direct
--- NOTE | 2021-07-30 12:18 | Event Note ---
Date: 07/30/21 Patient's breathing has improved. Right groin is without hematoma. Given his previous history of DVT and atrial fibirillation, would recommend Eliquis 5 mg po BID for life. Provided patient with 1 month of samples. He should follow up in the clinic, with me, in 2 weeks after discharge.
[2021-07-30 12:30] VITALS: BP 118/65
--- NOTE | 2021-07-30 12:54 | Discharge Summary ---
Providers - Providers Date of Admission: 07/22/21 16:44 Date of discharge: 07/30/21 Attending physician: OLIVERIO GALVEZ MD 07/22/21 Consult to Cardiac Rehabilitation [CONS] Routine Reason For Exam: Phase 1 Consult to Cardiac Rehabilitation [CONS] Routine Reason For Exam: Phase I 07/22/21 21:23 Consult to Physician [CONS] Routine Comment: Consulting Provider: JACOBY BEAL Physician Instructions: Reason For Exam: chf/nstemi 07/24/21 12:10 Consult to Physician [CONS] Routine Comment: Consulting Provider: TK BOLDEN Physician Instructions: Reason For Exam: near syncope, untreated PAF 07/27/21 13:56 Consult to Physician [CONS] Routine Comment: Consulting Provider: FRED HOWE Physician Instructions: Reason For Exam: Saddle embolism- possible mechanical thrombectomy 07/29/21 08:44 Consult to Physician [CONS] Routine Comment: Consulting Provider: CHELE PARK Physician Instructions: Reason For Exam: post ekos Primary care physician: SAND BLASTER Hospitalization Reason for admission: NSTEMI, syncope Condition: Stable Pertinent studies: Reviewed Procedures: Nuclear stress test; EKOS/mechanical thrombectomy Hospital course: Patient is a 71-year-old male with past medical history of Obesity, DM, HTN, Metabolic Syndrome, Paroxysmal Atrial Fib, History of LLE DVT not currently taking therapeutic anticoagulation presents to ED for evaluation. Patient reports "I feel weak, and I think I passed out". Patient states that he has experienced generalized weakness over the past 1 week with persistent symptoms over the same timeframe. Patient acknowledges decreased exercise tolerance, dyspnea on exertion, dyspnea at rest, orthopnea, paroxysmal nocturnal dyspnea, and shortness of breath. Patient reports subjective weight gain over the past 1 week. Patient acknowledges a sudden onset of worsening weakness with subsequent dizziness and subsequent loss of consciousness. Patient transported to [facility] via private vehicle for further care and evaluation of the aforementioned symptoms. The patient was seen and evaluated in the emergency department. All lab and imaging studies reviewed. Patient found to have NSTEMI, as well as clinical symptoms consistent with diastolic congestive heart failure. Patient admitted to telemetry and initiated on ACS protocol as well as CHF protocol. Cardiology team consulted in ED. patient underwent goal-directed therapy for NSTEMI, and he was initiated on a heparin drip. TTE revealed an EF of 55-60% with mild to moderate tricuspid regurg and moderate pulmonary hypertension. Patient underwent a nuclear stress test that was unremarkable for ischemia. The patient was worked up for his near syncopal episode with a CT head noncontrast and MRI brain that were both unremarkable. Neurology was consulted for further management. The patient began developing fevers of unknown origin. The patient's chest x-ray was unremarkable for an acute process; his urinalysis and blood cultures were also unremarkable. CT chest/abdomen/pelvis was performed that revealed a newly diagnosed saddle pulmonary embolism with concern for right heart strain. Vascular surgery was consulted, and they performed mechanical thrombectomy with EKOS on 07/28/2021. The patient continued IV heparin administration, and he was eventually transferred to the floor due to improvement in overall status. The patient will be discharged on Eliquis 5 mg twice daily for lifelong anticoagulation. Patient will follow up with vascular surgery in 2 weeks in their clinic. The patient is medically clear for discharge. Disposition: 01 HOME / SELF CARE / HOMELESS Final Discharge Diagnosis (Prints w/discharge instructions): Newly diagnosed saddle pulmonary embolism status post EKOS, near syncope, NSTEMI, paroxysmal atrial fibrillation, fever, chronic diastolic heart failure, [id number] type 2 diabetes mellitus, hypertension, hyperlipidemia, vascular dementia, cerebral atherosclerosis, morbid obesity. Time spent for discharge: 45 min Core Measure Documentation - Palliative Care Palliative Care/ Comfort Measures: Not Applicable - Core Measures Any of the following diagnoses?: DVT/PE, history only - VTE Discharge Requirements Deep Vein Thrombosis/Pulmonary Embolism Present on Admission: Yes Has pt received <5 days of overlap therapy or INR<2.0: No Anticoagulant overlap therapy prescribed at discharge: No Contraindication No Overlap Therapy order at DC: Not Indicated Exam - Constitutional Vitals: Temp Pulse Resp BP Pulse Ox 98.3 F 77 14 118/65 96 07/30/21 12:05 07/30/21 12:05 07/30/21 12:05 07/30/21 12:05 07/30/21 12:05 General appearance: Present: no acute distress, well-nourished, obese - EENT Eyes: Present: PERRL, EOM intact ENT: hearing intact, clear oral mucosa, dentition normal - Neck Neck: Present: supple, normal ROM - Respiratory Respiratory effort: normal Respiratory: bilateral: CTA - Cardiovascular Rhythm: irregularly irregular Heart Sounds: Present: S1 & S2 - Extremities Extremities: no ischemia, pulses intact, pulses symmetrical, No edema, normal temperature, normal color, Full ROM Peripheral Pulses: within normal limits - Abdominal General gastrointestinal: Present: soft, non-tender, non-distended, normal bowel sounds Male genitourinary: Present: deferred - Rectal Rectal Exam: deferred - Integumentary Integumentary: Present: clear, warm, dry - Musculoskeletal Musculoskeletal: strength equal bilaterally - Psychiatric Psychiatric: appropriate mood/affect, intact judgment & insight, memory intact, cooperative - Neurologic Neurologic: CNII-XII intact, moves all extremities - Allied Health Allied health notes reviewed: nursing Plan Activity: advance as tolerated Diet: low salt, diabetic Additional Instructions: Patient is a 71-year-old male with past medical history of Obesity, DM, HTN, Metabolic Syndrome, Paroxysmal Atrial Fib, History of LLE DVT not currently taking therapeutic anticoagulation presents to ED for e valuation. Patient reports "I feel weak, and I think I passed out". Patient states that he has experienced generalized weakness over the past 1 week with persistent symptoms over the same timeframe. Patient acknowledges decreased exercise tolerance, dyspnea on exertion, dyspnea at rest, orthopnea, paroxysmal nocturnal dyspnea, and shortness of breath. Patient reports subjective weight gain over the past 1 week. Patient acknowledges a sudden onset of worsening weakness with subsequent dizziness and subsequent loss of consciousness. Patient transported to [facility] via private vehicle for further care and evaluation of the aforementioned symptoms. The patient was seen and evaluated in the emergency department. All lab and imaging studies reviewed. Patient found to have NSTEMI, as well as clinical symptoms consistent with diastolic congestive heart failure. Patient admitted to telemetry and initiated on ACS protocol as well as CHF protocol. Cardiology team consulted in ED. patient underwent goal- directed therapy for NSTEMI, and he was initiated on a heparin drip. TTE revealed an EF of 55-60% with mild to moderate tricuspid regurg and moderate pulmonary hypertension. Patient underwent a nuclear stress test that was unremarkable for ischemia. The patient was worked up for his near syncopal episode with a CT head noncontrast and MRI brain that were both unremarkable. Neurology was consulted for further management. The patient began developing fevers of unknown origin. The patient's chest x-ray was unremarkable for an acute process; his urinalysis and blood cultures were also unremarkable. CT chest/abdomen/pelvis was performed that revealed a newly diagnosed saddle pulmonary embolism with concern for right heart strain. Vascular surgery was consulted, and they performed mechanical thrombectomy with EKOS on 07/28/2021. The patient continued IV heparin administration, and he was eventually transferred to the floor due to improvement in overall status. The patient will be discharged on Eliquis 5 mg twice daily for lifelong anticoagulation. Patient will follow up with vascular surgery in 2 weeks in their clinic. The patient is medically clear for discharge. Care Plan Goals: Patient is medically clear for discharge. Assessment: Patient is a 71-year-old male with past medical history of Obesity, DM, HTN, Me tabolic Syndrome, Paroxysmal Atrial Fib, History of LLE DVT not currently taking therapeutic anticoagulation presents to ED for evaluation. Patient reports "I feel weak, and I think I passed out". Patient states that he has experienced generalized weakness over the past 1 week with persistent symptoms over the same timeframe. Patient acknowledges decreased exercise tolerance, dyspnea on exertion, dyspnea at rest, orthopnea, paroxysmal nocturnal dyspnea, and shortness of breath. Patient reports subjective weight gain over the past 1 week. Patient acknowledges a sudden onset of worsening weakness with subsequent dizziness and subsequent loss of consciousness. Patient transported to [facility] via private vehicle for further care and evaluation of the aforementioned symptoms. The patient was seen and evaluated in the emergency department. All lab and imaging studies reviewed. Patient found to have NSTEMI, as well as clinical symptoms consistent with diastolic congestive heart failure. Patient admitted to telemetry and initiated on ACS protocol as well as CHF protocol. Cardiology team consulted in ED. patient underwent goal-directed therapy for NSTEMI, and he was initiated on a heparin drip. TTE revealed an EF of 55-60% with mild to moderate tricuspid regurg and moderate pulmonary hypertension. Patient underwent a nuclear stress test that was unremarkable for ischemia. The patient was worked up for his near syncopal episode with a CT head noncontrast and MRI brain that were both unremarkable. Neurology was consulted for further management. The patient began developing fevers of unknown origin. The patient's chest x-ray was unremarkable for an acute process; his urinalysis and blood cultures were also unremarkable. CT chest/abdomen/pelvis was performed that revealed a newly diagnosed saddle pulmonary embolism with concern for right heart strain. Vascular surgery was consulted, and they performed mechanical thrombectomy with EKOS on 07/28/2021. The patient continued IV heparin administration, and he was eventually transferred to the floor due to improvement in overall status. The patient will be discharged on Eliquis 5 mg twice daily for lifelong anticoagulation. Patient will follow up with vascular surgery in 2 weeks in their clinic. The patient is medically clear for discharge. Follow up with: PRIMARY CARE, [Primary Care Provider] - 7 Days VIGNESH SANTACRUZ MD [Staff Physician] - 7 Days Prescriptions: Apixaban [Eliquis] 5 mg PO BID #60 tab Metoprolol [Lopressor TAB] 50 mg PO BID #60 tablet
[2021-08-06] MEDS ORDERED: APIXABAN 5 MG TAB PO SCH (10:00)
== END 2021-07-30 15:58 | disposition home or self-care (01) | DRG 166 ==
LOC: ED 10:38 → 4A 16:44 → CC1 07-28 15:20 → 4A 07-29 17:47
PROVIDERS: ADMIT Internal Medicine; ATTEND Student in an Organized Health Care Education/Training Program
PROC: 4A02XM4 Measurement of Cardiac Total Activity, External Approach (ICD-10-PCS; 2021-07-26)
PROC: 3E073KZ Introduction of Other Diagnostic Substance into Coronary Artery, Percutaneous Approach (ICD-10-PCS; 2021-07-26)
PROC: 02FR3Z0 Fragmentation of Left Pulmonary Artery, Percutaneous Approach, Ultrasonic (ICD-10-PCS; principal; 2021-07-28)
PROC: 02FQ3Z0 Fragmentation of Right Pulmonary Artery, Percutaneous Approach, Ultrasonic (ICD-10-PCS; 2021-07-28)
PROC: B5191ZZ Fluoroscopy of Inferior Vena Cava using Low Osmolar Contrast (ICD-10-PCS; 2021-07-28)
PROC: B51B1ZZ Fluoroscopy of Right Lower Extremity Veins using Low Osmolar Contrast (ICD-10-PCS; 2021-07-28)
PROC: B31T1ZZ Fluoroscopy of Left Pulmonary Artery using Low Osmolar Contrast (ICD-10-PCS; 2021-07-28)
PROC: B31S1ZZ Fluoroscopy of Right Pulmonary Artery using Low Osmolar Contrast (ICD-10-PCS; 2021-07-28)
PROC: B31T1ZZ Fluoroscopy of Left Pulmonary Artery using Low Osmolar Contrast (ICD-10-PCS; 2021-07-29)
PROC: B31S1ZZ Fluoroscopy of Right Pulmonary Artery using Low Osmolar Contrast (ICD-10-PCS; 2021-07-29)
DX: I26.92 Saddle embolus of pulmonary artery without acute cor pulmonale (principal); I21.4 Non-ST elevation (NSTEMI) myocardial infarction; J96.01 Acute respiratory failure with hypoxia; I48.21 Permanent atrial fibrillation; I50.32 Chronic diastolic (congestive) heart failure; Z20.822 Contact with and (suspected) exposure to COVID-19; I11.0 Hypertensive heart disease with heart failure; Z79.01 Long term (current) use of anticoagulants; R55 Syncope and collapse; E88.81 Metabolic syndrome and other insulin resistance; F01.50 Vascular dementia, unspecified severity, without behavioral disturbance, psychotic disturbance, mood disturbance, and anxiety; E11.9 Type 2 diabetes mellitus without complications; I48.0 Paroxysmal atrial fibrillation; Z83.3 Family history of diabetes mellitus; Z82.49 Family history of ischemic heart disease and other diseases of the circulatory system; I67.2 Cerebral atherosclerosis; E78.5 Hyperlipidemia, unspecified; E66.01 Morbid (severe) obesity due to excess calories; Z68.35 Body mass index [BMI] 35.0-35.9, adult
CPT/HCPCS: 36415; 37211; 37214; 70450; 70551; 71045; 71046; 71260; 74177; 78452; 80048; 80053; 80061; 81001; 82140; 82565; 82607; 82962; 83036; 83880; 84443; 84484; 85025; 85027; 85384; 85520; 85610; 85730; 87040; 93005; 93017; 93306; 94640; 94760; 96372; 96374; 96375; 99285; G0378; J3490; Q9967; A9502; C1757; C1769; C1894; C8929; J0696; J1170; J1644; J1650; J1815; J1940; J1956; J2250; J2270; J2785; J2997; J3010; J3411; J7030; J7040; J7050; U0003